=== PATIENT | male | born 1955 | race African-American/Black ===

== ENCOUNTER 2018-03-28 14:17 | Inpatient (IN) | payer OTHER ==
[2018-03-28 16:29] VITALS: BMI 25.8
--- NOTE | 2018-03-28 21:48 | HP ---
CIWA Score - CIWA Score Nausea/Vomitin-No Nausea/No Vomiting Muscle Tremors: None Anxiety: 4-Mod. Anxious/Guarded Agitation: 4-Moderately Restless Paroxysmal Sweats: No Perspiration Orientation: 0-Oriented Tacttile Disturbances: 0-None Auditory Disturbances: 0-None Visual Disturbances: 0-None Headache: 0-None Present CIWA-Ar Total Score: 8 Admission ROS BHS - HPI Chief Complaint: SEEKING DETOX FOR WORSENING WITHDRAWAL SX'S R/T ALCOHOL WITHDRAWAL Allergies/Adverse Reactions: Allergies Allergy/AdvReac Type Severity Reaction Status Date / Time No Known Allergies Allergy Verified 03/28/18 16:36 History of Present Illness: 62 Y.O. MALE WITH HX/O ALCOHOLISM AND COCAINE DEPENDENCE ADMITTED TO DETOX. CLIENT IS SELF REFERRED. HIS IS KNOWN TO THIS PROGRAM. LAST HERE 02/18/2016-2015. DENIES ANY SIGNIFICANT CLEAN TIME. REPORTS LAST DETOX 2 MONTHS AGO AT [facility]. UTOX + BENZO. DENIES USE , FEELS IT IS CUT WITH THE COCAINE. HE IS BEREAVING DUE TO A LOST OF CHILD TO DRUG OVERDOSE LAST WEEK. DENIES HX/O SEIZURES, AND DRUG OVERDOSE PAST/PRESENT SI/HI. HE DOES REPORT HX/O BLACK OUTS, AVH AT TIME WITH WITHDRAWAL, PMHX: DM, HTN, PUD, HX/O +PPD, CVA, NICOTINE DEP PSYCH: DENIES Exam Limitations: No Limitations - Ebola screening Have you traveled outside of the country in the last 21 days: No (N) Have you had contact with anyone from an Ebola affected area: No Have you been sick,other than usual withdrawal symptoms: No Do you have a fever: No - Review of Systems Constitutional: No Symptoms Reported EENT: reports: Dental Problems (EDENTULOUS) Respiratory: reports: No Symptoms reported Cardiac: reports: Other (HX/O HTN) GI: reports: No Symptoms Reported : reports: No Symptoms Reported Musculoskeletal: reports: No Symptoms Reported Integumentary: reports: No Symptoms Reported Neuro: reports: No Symptoms reported Endocrine: reports: Other (HX/O DM) Hematology: reports: No Symptoms Reported Psychiatric: reports: other (RECENT LOSS OF A CHILD) Other Systems: Reviewed and Negative Patient History - Patient Medical History Hx Anemia: No Hx Asthma: No Hx Chronic Obstructive Pulmonary Disease (COPD): No Hx Cancer: No Hx Cardiac Disorders: No Hx Congestive Heart Failure: No Hx Hypertension: Yes (on meds) Hx Hypercholesterolemia: No Hx Pacemaker: No HX Cerebrovascular Accident: Yes (STROKE 2003--[place] Hx Seizures: No Hx Dementia: No Hx Diabetes: Yes (Type II) Hx Gastrointestinal Disorders: Yes (peptic ulcer.) Hx Liver Disease: No Hx Genitourinary Disorders: No Hx Sexually Transmitted Disorders: No Hx Renal Disease (ESRD): No Hx Thyroid Disease: No Hx Human Immunodeficiency Virus (HIV): No Hx Hepatitis C: No Hx Depression: No Hx Suicide Attempt: No Hx Bipolar Disorder: No Hx Schizophrenia: No Other Medical History: BEREAVMENT - Patient Surgical History Past Surgical History: Yes Hx Neurologic Surgery: No Hx Cataract Extraction: No Hx Cardiac Surgery: No Hx Lung Surgery: No Hx Breast Surgery: No Hx Breast Biopsy: No Hx Abdominal Surgery: No Hx Appendectomy: No Hx Cholecystectomy: No Hx Genitourinary Surgery: No Hx Section: No Hx Orthopedic Surgery: Yes (s/p surgery for fx right knee and right leg in 1998) Hx Hysterectomy: No Anesthesia Reaction: No - PPD History Previous Implant?: Yes Documented Results: Positive w/o proof Implanted On Prior [facility] Admission?: No PPD to be Administered?: No - Smoking Cessation Smoking history: Current every day smoker Have you smoked in the past 12 months: Yes Aproximately how many cigarettes per day: 20 Cigars Per Day: 0 Hx Chewing Tobacco Use: No Initiated information on smoking cessation: Yes 'Breaking Loose' booklet given: 03/28/18 - Substance & Tx. History Hx Alcohol Use: Yes Hx Substance Use: Yes Substance Use Type: Alcohol, Cocaine Hx Substance Use Treatment: Yes ([facility]) - Substances Abused Alcohol Route: Oral Frequency: Daily Amount used: 1 and 1/2 pint vodka Age of first use: 16 Date of Last Use: 03/27/18 Crack Route: Smoking Frequency: Daily Amount used: 4-5 bags Age of first use: 30 Date of Last Use: 03/27/18 Family Disease History - Family Disease History Family Disease History: Heart Disease: Mother (mother alcoholic ,HTN), Other: Mother Admission Physical Exam BHS - Vital Signs Vital Signs: Vital Signs - 24 hr 03/28/18 16:28 Temperature 96.4 F L Pulse Rate 83 Respiratory 20 Rate Blood Pressure 152/97 - Physical General Appearance: Yes: Appropriately Dressed, Mild Distress, Anxious, Other ( APPEAR [place] BUT DENIES) HEENTM: Yes: EOMI, Normocephalic, Normal Voice, DINESH, Pharynx Normal, Other ( EDENTULOUS/ DR MUCUS MEMBRANES) Respiratory: Yes: Chest Non-Tender, Lungs Clear, Normal Breath Sounds, No Respiratory Distress, No Accessory Muscle Use Neck: Yes: No masses,lesions,Nodules, Supple, Trachea in good position Breast: Yes: Breast Exam Deferred Cardiology: Yes: Regular Rhythm, Regular Rate, S1, S2 Abdominal: Yes: Non Tender, Soft, Protuberent Genitourinary: Yes: Other (DENIES C/O) Back: Yes: Normal Inspection Musculoskeletal: Yes: full range of Motion, Gait Steady Extremities: Yes: Normal Capillary Refill, Normal Range of Motion, Non-Tender Neurological: Yes: Fully Oriented, Alert, Motor Strength 5/5, Depressed Affect ( BEREAVING) Integumentary: Yes: Dry, Warm, Pitting Edema (TRACE TO BLE) Lymphatic: Yes: Within Normal Limits - Diagnostic (1) History of positive PPD Current Visit: Yes Status: Chronic (2) PUD (peptic ulcer disease) Current Visit: Yes Status: Chronic (3) Dry mucous membranes Current Visit: Yes Status: Acute (4) Bereavement due to life event Current Visit: Yes Status: Acute Comment: RECENT LOSS OF A CHILD A WEEK AGO (5) Alcohol dependence with uncomplicated withdrawal Current Visit: Yes Status: Acute (6) Nicotine dependence Current Visit: Yes Status: Chronic Qualifiers: Nicotine product type: cigarettes Substance use status: uncomplicated Qualified Code(s): F17.210 - Nicotine dependence, cigarettes, uncomplicated (7) Old cerebrovascular accident (CVA) without late effect Current Visit: Yes Status: Chronic (8) DM Diabetes mellitus type 2 Current Visit: Yes Status: Chronic (9) Essential hypertension Current Visit: Yes Status: Chronic Cleared for Admission S - Detox or Rehab [facility] Level of Care: Medically Managed Detox Regimen/Protocol: Librium Claeared for Rehab Admission: No S Breath Alcohol Content Breath Alcohol Content: 0 Urine Drug Screen - Results Drug Screen Negative: No Urine Drug Screen Results: ROSALIO-Cocaine, BZO-Benzodiazepines
[2018-03-28] MEDS ORDERED: MAG HYDROX/AL HYDROX/SIMETH 30 ML UNIT-DOSE CUP PO PRN (21:53)
[2018-03-28] MEDS ORDERED: MAGNESIUM HYDROX 2400MG/30ML ORAL SUSPENSION 30 ML CUP PO PRN (21:53)
[2018-03-28] MEDS ORDERED: MAGNESIUM CITRATE 300 ML BOTTLE PO PRN (21:53)
[2018-03-28] MEDS ORDERED: ACETAMINOPHEN 325 MG TABLET (FP) PO PRN (21:53)
[2018-03-28] MEDS ORDERED: P-EPHED 60MG/TRIPROLIDI 2.5MG TABLET PO PRN (21:53)
[2018-03-28] MEDS ORDERED: IBUPROFEN 400 MG TABLET (FP) PO PRN (21:53)
[2018-03-28] MEDS ORDERED: guaiFENesin/D-METHORPHAN HB 10 ML UNIT-DOSE CUPS PO PRN (21:53)
[2018-03-28] MEDS ORDERED: MENTHOL/PHENOL 1 EACH UD MM PRN (21:53)
[2018-03-28] MEDS ORDERED: LOPERAMIDE HCL 2 MG CAPSULE PO PRN (21:53)
[2018-03-28] MEDS ORDERED: chlordiazePOXIDE HCL 25 MG CAPSULE PO PRN (21:53)
[2018-03-28] MEDS ORDERED: hydrOXYzine PAMOATE 50 MG CAPSULE (FP) PO PRN (21:53)
[2018-03-28] MEDS ORDERED: NICOTINE POLACRILEX 2 MG GUM BC PRN (21:53)
[2018-03-28] MEDS ORDERED: MELATONIN 5 MG TABLETS PO PRN (22:00)
[2018-03-28] MEDS ORDERED: cloNIDine HCL 0.1 MG TABLET PO ONE (22:07)
[2018-03-28] MEDS: THIAMINE HCL 100 MG TABLET (FP) PO SCH (22:47)
[2018-03-28] MEDS: chlordiazePOXIDE HCL 25 MG CAPSULE PO SCH (22:48)
[2018-03-28 23:32] LABS: URINE APPEARANCE TURBID; URINE BILIRUBIN NEGATIVE (<2.0 mg/dL); URINE COLOR YELLOW; URINE GLUCOSE (UA) 3+ (NEGATIVE); URINE KETONE NEGATIVE (NEGATIVE); URINE LEUK ESTERASE NEGATIVE (NEGATIVE); URINE NITRITE NEGATIVE (NEGATIVE); URINE PROTEIN NEGATIVE (NEGATIVE); URINE UROBILINOGEN 4.0 E.U/dl mg/dL (0.2-1.0)
[2018-03-29] MEDS: chlordiazePOXIDE HCL 25 MG CAPSULE PO SCH ×4 (06:41→22:10)
[2018-03-29] MEDS: metFORMIN HCL 500 MG TABLET (FP) PO SCH (07:43)
[2018-03-29 09:52] LABS: HEMATOCRIT 43.6 % (35.4-49); HEMOGLOBIN 14.7 GM/dL (11.7-16.9); MCH 31.2 pg (25.7-33.7); MCHC 33.8 g/dl (32.0-35.9); MEAN CELL VOLUME 92.1 fl (80-96); MEAN PLT VOLUME 7.8 fl (7.5-11.1); PLATELET COUNT 305 K/MM3 (134-434); RBC 4.73 M/mm3 (4.00-5.60); RDW 14.8 % (11.9-15.9); WHITE BLOOD COUNT 4.9 K/mm3 (4.0-10.0)
[2018-03-29] MEDS: NICOTINE 21 MG/24 HOURS TOPICAL PATCH TD SCH (10:15)
[2018-03-29] MEDS: amLODIPine BESYLATE 5 MG TABLET (FP) PO SCH (10:15)
[2018-03-29] MEDS: LISINOPRIL 5 MG TABLET (FP) PO SCH (10:15)
[2018-03-29] MEDS: PRENATAL VITAMINS W/ FOLIC ACID TABLET (FP) PO SCH (10:15)
[2018-03-29 10:33] LABS: ALBUMIN 3.4 g/dl (3.4-5.0); ALK PHOS 124 U/L (45-117); ANION GAP 10 MMOL/L (8-16); BILIRUBIN,TOTAL 0.5 mg/dL (0.2-1.0); BLOOD UREA NITROGEN 18 mg/dL (7-18); CALCIUM 8.6 mg/dL (8.5-10.1); CHLORIDE 107 mmol/L (98-107); CO2 24 mmol/L (21-32); CREATININE 0.8 mg/dL (0.7-1.3); GLUCOSE,RANDOM 174 mg/dL (74-106); POTASSIUM 3.7 mmol/L (3.5-5.1); SGOT/AST 36 U/L (15-37); SGPT/ALT 49 U/L (12-78); SODIUM 141 mmol/L (136-145); TOT PROT 8.2 g/dl (6.4-8.2)
--- NOTE | 2018-03-29 15:12 | PN ---
S CIWA - CIWA Score Nausea/Vomitin-Mild Nausea/No Vomiting Muscle Tremors: 3 Anxiety: 3 Agitation: 2 Paroxysmal Sweats: 1-Minimal Palms Moist Orientation: 1-Uncertain about Date Tacttile Disturbances: 1-Very Mild Itch/Numbness Auditory Disturbances: 0-None Visual Disturbances: 0-None Headache: 1-Very Mild CIWA-Ar Total Score: 13 BHS Progress Note (SOAP) Subjective: sweat tremor gi distress trouble sleep at night Objective: 03/29/18 15:10 Vital Signs Temperature 97.3 F L 03/29/18 13:43 Pulse Rate 85 03/29/18 13:43 Respiratory Rate 16 03/29/18 13:43 Blood Pressure 150/91 03/29/18 13:43 O2 Sat by Pulse Oximetry (%) Laboratory Last Values WBC 4.9 K/mm3 (4.0-10.0) 03/29/18 07:40 RBC 4.73 M/mm3 (4.00-5.60) 03/29/18 07:40 Hgb 14.7 GM/dL (11.7-16.9) 03/29/18 07:40 Hct 43.6 % (35.4-49) 03/29/18 07:40 MCV 92.1 fl (80-96) 03/29/18 07:40 MCH 31.2 pg (25.7-33.7) 03/29/18 07:40 MCHC 33.8 g/dl (32.0-35.9) 03/29/18 07:40 RDW 14.8 % (11.9-15.9) D 03/29/18 07:40 Plt Count 305 K/MM3 (134-434) D 03/29/18 07:40 MPV 7.8 fl (7.5-11.1) 03/29/18 07:40 Sodium 141 mmol/L (136-145) 03/29/18 07:40 Potassium 3.7 mmol/L (3.5-5.1) 03/29/18 07:40 Chloride 107 mmol/L (98-107) 03/29/18 07:40 Carbon Dioxide 24 mmol/L (21-32) 03/29/18 07:40 Anion Gap 10 MMOL/L (8-16) 03/29/18 07:40 BUN 18 mg/dL (7-18) 03/29/18 07:40 Creatinine 0.8 mg/dL (0.7-1.3) 03/29/18 07:40 Creat Clearance w eGFR > 60 (>60) 03/29/18 07:40 POC Glucometer 213 UNITS (80-120) 03/29/18 07:28 Random Glucose 174 mg/dL (74-106) H D 03/29/18 07:40 Calcium 8.6 mg/dL (8.5-10.1) 03/29/18 07:40 Total Bilirubin 0.5 mg/dL (0.2-1.0) 03/29/18 07:40 AST 36 U/L (15-37) 03/29/18 07:40 ALT 49 U/L (12-78) 03/29/18 07:40 Alkaline Phosphatase 124 U/L (45-117) H 03/29/18 07:40 Total Protein 8.2 g/dl (6.4-8.2) 03/29/18 07:40 Albumin 3.4 g/dl (3.4-5.0) 03/29/18 07:40 Urine Color Yellow 03/28/18 22:14 Urine Appearance Turbid 03/28/18 22:14 Urine pH 6.0 (5.0-8.0) 03/28/18 22:14 Ur Specific [place] 1.026 (1.001-1.035) 03/28/18 22:14 Urine Protein Negative (NEGATIVE) 03/28/18 22:14 Urine Glucose (UA) 3+ (NEGATIVE) H 03/28/18 22:14 Urine Ketones Negative (NEGATIVE) 03/28/18 22:14 Urine Blood Negative (NEGATIVE) 03/28/18 22:14 Urine Nitrite Negative (NEGATIVE) 03/28/18 22:14 Urine Bilirubin Negative (<2.0 mg/dL) 03/28/18 22:14 Urine Urobilinogen 4.0 e.u/dl mg/dL (0.2-1.0) 03/28/18 22:14 Ur Leukocyte Esterase Negative (NEGATIVE) 03/28/18 22:14 RPR Titer Nonreactive (NONREACTIVE) 03/29/18 07:40 lab noted Assessment: 03/29/18 15:11 alcohol withdrawal sx Plan: continue detox
--- NOTE | 2018-03-29 16:07 | CONSULT ---
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 Substance Abuse History: Discussed in this session.Mr Sands admits to a heavy history of alcohol abuse - 1 to 2 pints of vodka daily - since age 16 and a 30 year history of crack dependence.Smokes about one pack of cigarettes a day.More details in current [facility] report as follows : Smoking history: Current every day smoker. Have you smoked in the past 12 months: Yes. Aproximately how many cigarettes per day: 20. Cigars Per Day: 0. Hx Chewing Tobacco Use: No. Initiated information on smoking cessation: Yes. 'Breaking Loose' booklet given : 03/28/18. - Substance & Tx. History. Hx Alcohol Use: Yes. Hx Substance Use : Yes. Substance Use Type: Alcohol, Cocaine. Hx Substance Use Treatment: Yes ( [facility]). - Substances Abused. Alcohol. Route: Oral. Frequency: Daily. Amount used: 1 and 1/2 pint vodka. Age of first use: 16. Date of Last Use: . Crack. Route: Smoking. Frequency: Daily. Amount used: 4-5 bags. Age of first use: 30. Date of Last Use: 03/27/18 Medical History: Multiple medical co-morbidities : peptic ulcer disease, hypertension,past history of CVA in 2003,diabetes mellitus,positive PPD status and a history of orthosurgery for fracture of right leg + right knee (1998). Psychiatric History: Patient denies history of psychiatric hospitalizations or suicide attempts.No prior history of contact with mental health care providers in OPD settings. Physical/Sexual Abuse/Trauma History: Patient denies history of abuse.Noted report of recent of child in [facility] admission note.Mr Sands declines to discuss the issue. Additional Comment: Urine Drug Screen Results: ROSALIO-Cocaine, BZO- Benzodiazepines.Noted. Mental Status Exam - Mental Status Exam Alert and Oriented to: Time, Place, Person Cognitive Function: Grossly Intact Patient Appearance: Well Groomed (obese male,appearing stated age,edentulous) Mood: Withdrawn, Hopeful Affect: Appropriate, Normal Range Patient Behavior: Fatigued, Cooperative Speech Pattern: Delayed, Slurred Voice Loudness: Normal Thought Process: Goal Oriented Thought Disorder: Not Present Hallucinations: Denies Suicidal Ideation: Denies Homicidal Ideation: Denies Insight/Judgement: Poor Sleep: Well Appetite: Good Gait/Station: Other (not observed out of bed) Psychiatric Findings - Problem List ([place] 1, 2,3) (1) Alcohol dependence with uncomplicated withdrawal Current Visit: Yes Status: Acute (2) Cocaine dependence Current Visit: Yes Status: Active (3) Nicotine dependence Current Visit: Yes Status: Acute Qualifiers: Nicotine product type: cigarettes Substance use status: uncomplicated Qualified Code(s): F17.210 - Nicotine dependence, cigarettes, uncomplicated - Initial Treatment Plan Initial Treatment Plan: Psychoeducation.Support.Group therapy.Sleep hygiene recommended.Detoxification in progress.Observation.
[2018-03-29] MEDS: THIAMINE HCL 100 MG TABLET (FP) PO SCH (22:10)
[2018-03-30] MEDS: chlordiazePOXIDE HCL 25 MG CAPSULE PO SCH ×3 (06:22→17:46)
[2018-03-30] MEDS: metFORMIN HCL 500 MG TABLET (FP) PO SCH (06:25)
[2018-03-30] MEDS: PRENATAL VITAMINS W/ FOLIC ACID TABLET (FP) PO SCH (10:31)
[2018-03-30] MEDS: NICOTINE 21 MG/24 HOURS TOPICAL PATCH TD SCH (10:32)
[2018-03-30] MEDS: LISINOPRIL 5 MG TABLET (FP) PO SCH (10:32)
[2018-03-30] MEDS: amLODIPine BESYLATE 5 MG TABLET (FP) PO SCH (10:32)
--- NOTE | 2018-03-30 14:14 | PN ---
[facility] CIWA - CIWA Score Nausea/Vomitin-No Nausea/No Vomiting Muscle Tremors: 4-Moderate,w/Arms Extend Anxiety: 3 Agitation: 4-Moderately Restless Paroxysmal Sweats: 1-Minimal Palms Moist Orientation: 0-Oriented Tacttile Disturbances: 0-None Auditory Disturbances: 0-None Visual Disturbances: 0-None Headache: 0-None Present CIWA-Ar Total Score: 12 BHS Progress Note (SOAP) Subjective: mild gi distress tremor sweat restlessness Objective: 03/30/18 14:13 Vital Signs Temperature 97.5 F L 03/30/18 09:29 Pulse Rate 77 03/30/18 09:29 Respiratory Rate 18 03/30/18 09:29 Blood Pressure 139/86 03/30/18 09:29 O2 Sat by Pulse Oximetry (%) Laboratory Last Values WBC 4.9 K/mm3 (4.0-10.0) 03/29/18 07:40 RBC 4.73 M/mm3 (4.00-5.60) 03/29/18 07:40 Hgb 14.7 GM/dL (11.7-16.9) 03/29/18 07:40 Hct 43.6 % (35.4-49) 03/29/18 07:40 MCV 92.1 fl (80-96) 03/29/18 07:40 MCH 31.2 pg (25.7-33.7) 03/29/18 07:40 MCHC 33.8 g/dl (32.0-35.9) 03/29/18 07:40 RDW 14.8 % (11.9-15.9) D 03/29/18 07:40 Plt Count 305 K/MM3 (134-434) D 03/29/18 07:40 MPV 7.8 fl (7.5-11.1) 03/29/18 07:40 Sodium 141 mmol/L (136-145) 03/29/18 07:40 Potassium 3.7 mmol/L (3.5-5.1) 03/29/18 07:40 Chloride 107 mmol/L (98-107) 03/29/18 07:40 Carbon Dioxide 24 mmol/L (21-32) 03/29/18 07:40 Anion Gap 10 MMOL/L (8-16) 03/29/18 07:40 BUN 18 mg/dL (7-18) 03/29/18 07:40 Creatinine 0.8 mg/dL (0.7-1.3) 03/29/18 07:40 Creat Clearance w eGFR > 60 (>60) 03/29/18 07:40 POC Glucometer 186 UNITS (80-120) 03/30/18 06:23 Random Glucose 174 mg/dL (74-106) H D 03/29/18 07:40 Calcium 8.6 mg/dL (8.5-10.1) 03/29/18 07:40 Total Bilirubin 0.5 mg/dL (0.2-1.0) 03/29/18 07:40 AST 36 U/L (15-37) 03/29/18 07:40 ALT 49 U/L (12-78) 03/29/18 07:40 Alkaline Phosphatase 124 U/L (45-117) H 03/29/18 07:40 Total Protein 8.2 g/dl (6.4-8.2) 03/29/18 07:40 Albumin 3.4 g/dl (3.4-5.0) 03/29/18 07:40 Urine Color Yellow 03/28/18 22:14 Urine Appearance Turbid 03/28/18 22:14 Urine pH 6.0 (5.0-8.0) 03/28/18 22:14 Ur Specific [place] 1.026 (1.001-1.035) 03/28/18 22:14 Urine Protein Negative (NEGATIVE) 03/28/18 22:14 Urine Glucose (UA) 3+ (NEGATIVE) H 03/28/18 22:14 Urine Ketones Negative (NEGATIVE) 03/28/18 22:14 Urine Blood Negative (NEGATIVE) 03/28/18 22:14 Urine Nitrite Negative (NEGATIVE) 03/28/18 22:14 Urine Bilirubin Negative (<2.0 mg/dL) 03/28/18 22:14 Urine Urobilinogen 4.0 e.u/dl mg/dL (0.2-1.0) 03/28/18 22:14 Ur Leukocyte Esterase Negative (NEGATIVE) 03/28/18 22:14 RPR Titer Nonreactive (NONREACTIVE) 03/29/18 07:40 lab noted Assessment: 03/30/18 14:14 withdrawal sx Plan: continue detox
[2018-03-30] MEDS: THIAMINE HCL 100 MG TABLET (FP) PO SCH (22:11)
[2018-03-30] MEDS: chlordiazePOXIDE 5 MG CAPSULE PO SCH (22:11)
[2018-03-31] MEDS: chlordiazePOXIDE 5 MG CAPSULE PO SCH ×3 (05:05→20:48)
[2018-03-31] MEDS: metFORMIN HCL 500 MG TABLET (FP) PO SCH (07:20)
[2018-03-31] MEDS: amLODIPine BESYLATE 5 MG TABLET (FP) PO SCH (10:19)
[2018-03-31] MEDS: PRENATAL VITAMINS W/ FOLIC ACID TABLET (FP) PO SCH (10:19)
[2018-03-31] MEDS: NICOTINE 21 MG/24 HOURS TOPICAL PATCH TD SCH (10:19)
[2018-03-31] MEDS: LISINOPRIL 5 MG TABLET (FP) PO SCH (10:19)
--- NOTE | 2018-03-31 11:01 | PN ---
BHS Progress Note (SOAP) Subjective: social with peers in day room no tremor less sweat sleep better at night Objective: 03/31/18 11:01 Vital Signs Temperature 96.8 F L 03/31/18 09:24 Pulse Rate 89 03/31/18 09:24 Respiratory Rate 18 03/31/18 09:24 Blood Pressure 137/81 03/31/18 09:24 O2 Sat by Pulse Oximetry (%) Laboratory Last Values WBC 4.9 K/mm3 (4.0-10.0) 03/29/18 07:40 RBC 4.73 M/mm3 (4.00-5.60) 03/29/18 07:40 Hgb 14.7 GM/dL (11.7-16.9) 03/29/18 07:40 Hct 43.6 % (35.4-49) 03/29/18 07:40 MCV 92.1 fl (80-96) 03/29/18 07:40 MCH 31.2 pg (25.7-33.7) 03/29/18 07:40 MCHC 33.8 g/dl (32.0-35.9) 03/29/18 07:40 RDW 14.8 % (11.9-15.9) D 03/29/18 07:40 Plt Count 305 K/MM3 (134-434) D 03/29/18 07:40 MPV 7.8 fl (7.5-11.1) 03/29/18 07:40 Sodium 141 mmol/L (136-145) 03/29/18 07:40 Potassium 3.7 mmol/L (3.5-5.1) 03/29/18 07:40 Chloride 107 mmol/L (98-107) 03/29/18 07:40 Carbon Dioxide 24 mmol/L (21-32) 03/29/18 07:40 Anion Gap 10 MMOL/L (8-16) 03/29/18 07:40 BUN 18 mg/dL (7-18) 03/29/18 07:40 Creatinine 0.8 mg/dL (0.7-1.3) 03/29/18 07:40 Creat Clearance w eGFR > 60 (>60) 03/29/18 07:40 POC Glucometer 271 UNITS (80-120) 03/31/18 05:05 Random Glucose 174 mg/dL (74-106) H D 03/29/18 07:40 Calcium 8.6 mg/dL (8.5-10.1) 03/29/18 07:40 Total Bilirubin 0.5 mg/dL (0.2-1.0) 03/29/18 07:40 AST 36 U/L (15-37) 03/29/18 07:40 ALT 49 U/L (12-78) 03/29/18 07:40 Alkaline Phosphatase 124 U/L (45-117) H 03/29/18 07:40 Total Protein 8.2 g/dl (6.4-8.2) 03/29/18 07:40 Albumin 3.4 g/dl (3.4-5.0) 03/29/18 07:40 Urine Color Yellow 03/28/18 22:14 Urine Appearance Turbid 03/28/18 22:14 Urine pH 6.0 (5.0-8.0) 03/28/18 22:14 Ur Specific [place] 1.026 (1.001-1.035) 03/28/18 22:14 Urine Protein Negative (NEGATIVE) 03/28/18 22:14 Urine Glucose (UA) 3+ (NEGATIVE) H 03/28/18 22:14 Urine Ketones Negative (NEGATIVE) 03/28/18 22:14 Urine Blood Negative (NEGATIVE) 03/28/18 22:14 Urine Nitrite Negative (NEGATIVE) 03/28/18 22:14 Urine Bilirubin Negative (<2.0 mg/dL) 03/28/18 22:14 Urine Urobilinogen 4.0 e.u/dl mg/dL (0.2-1.0) 03/28/18 22:14 Ur Leukocyte Esterase Negative (NEGATIVE) 03/28/18 22:14 RPR Titer Nonreactive (NONREACTIVE) 03/29/18 07:40 lab noted Assessment: 03/31/18 11:01 mild with drawal sx Plan: medically supervised detox
--- NOTE | 2018-03-31 14:21 | EKG ---
Test Reason : Blood Pressure : / mmHG Vent. Rate : 066 BPM Atrial Rate : 066 BPM P-R Int : 154 ms QRS Dur : 074 ms QT Int : 400 ms P-R-T Axes : 046 029 048 degrees QTc Int : 419 ms NORMAL SINUS RHYTHM NORMAL ECG NO PREVIOUS ECGS AVAILABLE Confirmed by MONIQUE LLOYD MD ([id number]) on 03/31/2018 2:21:15 PM Referred By: Confirmed By:MONIQUE LLOYD MD
[2018-03-31] MEDS: chlordiazePOXIDE HCL 10 MG CAPSULE PO SCH (22:05)
[2018-03-31] MEDS: THIAMINE HCL 100 MG TABLET (FP) PO SCH (22:05)
[2018-04-01] MEDS: chlordiazePOXIDE HCL 10 MG CAPSULE PO SCH (05:45)
[2018-04-01] MEDS: metFORMIN HCL 500 MG TABLET (FP) PO SCH (07:56)
[2018-04-01] MEDS: LISINOPRIL 5 MG TABLET (FP) PO SCH (09:14)
[2018-04-01] MEDS: amLODIPine BESYLATE 5 MG TABLET (FP) PO SCH (09:14)
[2018-04-01] MEDS: PRENATAL VITAMINS W/ FOLIC ACID TABLET (FP) PO SCH (09:14)
[2018-04-01 09:34] VITALS: BP 152/89; PULSE 97; TEMP 97.3
--- NOTE | 2018-04-01 10:02 | DS ---
[facility] Detox Discharge Summary Admission Date: 03/28/18 Discharge Date: 04/01/18 - History Present History: Alcohol Dependence Additional Comments: 63 YEARS OLD MALE ADMITTED ON 03/28/18 FOR ALCOHOL WITHDRAWAL SX COMPLETED ALCOHOL DETOX REGIMEN TODAY T[facility]ERATED [facility] DENIES ALCOHOL WITHDRAWAL SX ALERT ORIENTED X 3 NO ACUTE DISTRESS AFTER [facility] REPORTED HAS ALL PRESCRIPTION MEDICATIONS AT HOME THE HE RECENTLY FILLED BEFORE ALCOHOL DETOX ADMISSION PATIENT HAS POSITIVE PPD SINCE 2016 KNOWN FROM MEDICAL RECORD PATIENT DENIES SYMPTOMS OF TB NO SIGNS OF TB PATIENT STATED THAT HE HAD CHEST X RAY WITHIN ONE YEAR AND NOT NECESSARY TO HAVE ANOTHER ONE - Physical Exam Results Vital Signs: Vital Signs Temperature 97.3 F L 04/01/18 09:33 Pulse Rate 97 H 04/01/18 09:33 Respiratory Rate 18 04/01/18 09:33 Blood Pressure 152/89 04/01/18 09:33 O2 Sat by Pulse Oximetry (%) Pertinent Admission Physical Exam Findings: ALCOHOL WITHDRAWAL SX Vital Signs Temperature 97.3 F L 04/01/18 09:33 Pulse Rate 97 H 04/01/18 09:33 Respiratory Rate 18 04/01/18 09:33 Blood Pressure 152/89 04/01/18 09:33 O2 Sat by Pulse Oximetry (%) Laboratory Last Values WBC 4.9 K/mm3 (4.0-10.0) 03/29/18 07:40 RBC 4.73 M/mm3 (4.00-5.60) 03/29/18 07:40 Hgb 14.7 GM/dL (11.7-16.9) 03/29/18 07:40 Hct 43.6 % (35.4-49) 03/29/18 07:40 MCV 92.1 fl (80-96) 03/29/18 07:40 MCH 31.2 pg (25.7-33.7) 03/29/18 07:40 MCHC 33.8 g/dl (32.0-35.9) 03/29/18 07:40 RDW 14.8 % (11.9-15.9) D 03/29/18 07:40 Plt Count 305 K/MM3 (134-434) D 03/29/18 07:40 MPV 7.8 fl (7.5-11.1) 03/29/18 07:40 Sodium 141 mmol/L (136-145) 03/29/18 07:40 Potassium 3.7 mmol/L (3.5-5.1) 03/29/18 07:40 Chloride 107 mmol/L (98-107) 03/29/18 07:40 Carbon Dioxide 24 mmol/L (21-32) 03/29/18 07:40 Anion Gap 10 MMOL/L (8-16) 03/29/18 07:40 BUN 18 mg/dL (7-18) 03/29/18 07:40 Creatinine 0.8 mg/dL (0.7-1.3) 03/29/18 07:40 Creat Clearance w eGFR > 60 (>60) 03/29/18 07:40 POC Glucometer 256 UNITS (80-120) 04/01/18 05:46 Random Glucose 174 mg/dL (74-106) H D 03/29/18 07:40 Calcium 8.6 mg/dL (8.5-10.1) 03/29/18 07:40 Total Bilirubin 0.5 mg/dL (0.2-1.0) 03/29/18 07:40 AST 36 U/L (15-37) 03/29/18 07:40 ALT 49 U/L (12-78) 03/29/18 07:40 Alkaline Phosphatase 124 U/L (45-117) H 03/29/18 07:40 Total Protein 8.2 g/dl (6.4-8.2) 03/29/18 07:40 Albumin 3.4 g/dl (3.4-5.0) 03/29/18 07:40 Urine Color Yellow 03/28/18 22:14 Urine Appearance Turbid 03/28/18 22:14 Urine pH 6.0 (5.0-8.0) 03/28/18 22:14 Ur Specific [place] 1.026 (1.001-1.035) 03/28/18 22:14 Urine Protein Negative (NEGATIVE) 03/28/18 22:14 Urine Glucose (UA) 3+ (NEGATIVE) H 03/28/18 22:14 Urine Ketones Negative (NEGATIVE) 03/28/18 22:14 Urine Blood Negative (NEGATIVE) 03/28/18 22:14 Urine Nitrite Negative (NEGATIVE) 03/28/18 22:14 Urine Bilirubin Negative (<2.0 mg/dL) 03/28/18 22:14 Urine Urobilinogen 4.0 e.u/dl mg/dL (0.2-1.0) 03/28/18 22:14 Ur Leukocyte Esterase Negative (NEGATIVE) 03/28/18 22:14 RPR Titer Nonreactive (NONREACTIVE) 03/29/18 07:40 LAB NOTED - Treatment Hospital Course: Detox Protocol Followed, Detoxed Safely, Responded well, Discharged Condition Good, Rehab Referral Accepted Patient has Accepted a Rehab Referral to: [facility] - Medication Discharge Medications: Ambulatory Orders Amlodipine Besylate [Norvasc -] 5 mg PO DAILY #30 tablet 03/31/18 Lisinopril [Prinivil] 5 mg PO DAILY #30 tablet 03/31/18 Metformin HCl [Glucophage] 500 mg PO DAILY #30 tablet 03/31/18 - Diagnosis (1) Alcohol dependence with uncomplicated withdrawal Current Visit: Yes Status: Acute (2) Nicotine dependence Current Visit: Yes Status: Acute Qualifiers: Nicotine product type: cigarettes Substance use status: in withdrawal Qualified Code(s): F17.213 - Nicotine dependence, cigarettes, with withdrawal (3) Positive PPD Current Visit: No Status: Resolved (4) DM Diabetes mellitus type 2 Current Visit: Yes Status: Chronic (5) Essential hypertension Current Visit: Yes Status: Chronic - AMA Did Patient Leave Against Medical Advice: No
== END 2018-04-01 09:30 | disposition home or self-care (01) | DRG 774 ==
LOC: YASAS 14:17 → Y6N 18:08
PROC: HZ2ZZZZ Detoxification Services for Substance Abuse Treatment (ICD-10-PCS; principal; 2018-03-28)
DX: F10.230 Alcohol dependence with withdrawal, uncomplicated (principal); F14.20 Cocaine dependence, uncomplicated; F17.213 Nicotine dependence, cigarettes, with withdrawal; I10 Essential (primary) hypertension; E11.9 Type 2 diabetes mellitus without complications; Z79.84 Long term (current) use of oral hypoglycemic drugs; K27.9 Peptic ulcer, site unspecified, unspecified as acute or chronic, without hemorrhage or perforation; R76.11 Nonspecific reaction to tuberculin skin test without active tuberculosis; Z86.73 Personal history of transient ischemic attack (TIA), and cerebral infarction without residual deficits; Z87.81 Personal history of (healed) traumatic fracture; Z63.4 Disappearance and death of family member; Z59.0 Homelessness
CPT/HCPCS: 36415; 80053; 81003; 82962; 85027; 86593; 93005; 93010; J0735

== ENCOUNTER 2018-05-14 08:41 | Inpatient (IN) | payer OTHER ==
[2018-05-14 09:07] VITALS: BMI 30.5
--- NOTE | 2018-05-14 09:44 | HP ---
CIWA Score - CIWA Score Nausea/Vomitin Muscle Tremors: 2 Anxiety: 2 Agitation: 2 Paroxysmal Sweats: 1-Minimal Palms Moist Orientation: 0-Oriented Tacttile Disturbances: 1-Very Mild Itch/Numbness Auditory Disturbances: 1-Very Mild Visual Disturbances: 1-Very Mild Sensitivity Headache: 2-Mild CIWA-Ar Total Score: 14 Admission ROS BHS - HPI Chief Complaint: i need help to stop drinking alcohol and cocaine Allergies/Adverse Reactions: Allergies Allergy/AdvReac Type Severity Reaction Status Date / Time No Known Allergies Allergy Verified 03/28/18 16:36 History of Present Illness: this 63 years old male with alcohol and cocaine dependence seeking detox, withdrawal symptom,last 03/28/18 to 04/01/18 syncope alcohol related old cva in 2003 history of htn,type 2 dm,non compliance nicotine dependence multiple admissions to detox,keep relapsing no significant period of sobriety Exam Limitations: No Limitations - Ebola screening Have you traveled outside of the country in the last 21 days: No (N) Have you had contact with anyone from an Ebola affected area: No Have you been sick,other than usual withdrawal symptoms: No Do you have a fever: No - Review of Systems Constitutional: Loss of Appetite, Malaise, Night Sweats, Changes in sleep, Weakness EENT: reports: Nose Congestion Respiratory: reports: No Symptoms reported Cardiac: reports: No Symptoms Reported GI: reports: Nausea, Vomiting, Abdominal cramping : reports: No Symptoms Reported Musculoskeletal: reports: Back Pain, Muscle Pain Neuro: reports: Headache, Tremors Endocrine: reports: No Symptoms Reported Hematology: reports: No Symptoms Reported Psychiatric: reports: No Sypmtoms Reported, Judgement Intact, Mood/Affect Appropiate, Orientated x3 Patient History - Patient Medical History Hx Anemia: No Hx Asthma: No Hx Chronic Obstructive Pulmonary Disease (COPD): No Hx Cancer: No Hx Cardiac Disorders: No Hx Congestive Heart Failure: No Hx Hypertension: Yes (on meds non compliance) Hx Hypercholesterolemia: No Hx Pacemaker: No HX Cerebrovascular Accident: Yes (STROKE 2003--[place], [place]) Hx Seizures: No Hx Dementia: No Hx Diabetes: Yes (Type II) Hx Gastrointestinal Disorders: Yes (peptic ulcer.) Hx Liver Disease: No Hx Genitourinary Disorders: No Hx Sexually Transmitted Disorders: No Hx Renal Disease (ESRD): No Hx Thyroid Disease: No Hx Human Immunodeficiency Virus (HIV): No (last 2011 negative) Hx Hepatitis C: No Hx Depression: No Hx Suicide Attempt: No Hx Bipolar Disorder: No Hx Schizophrenia: No Other Medical History: no suicidal,no homicidal - Patient Surgical History Past Surgical History: Yes Hx Neurologic Surgery: No Hx Cataract Extraction: No Hx Cardiac Surgery: No Hx Lung Surgery: No Hx Breast Surgery: No Hx Breast Biopsy: No Hx Abdominal Surgery: No Hx Appendectomy: No Hx Cholecystectomy: No Hx Genitourinary Surgery: No Hx Section: No Hx Orthopedic Surgery: Yes (s/p surgery for fx right knee and right leg in 1998) Hx Hysterectomy: No Anesthesia Reaction: No - PPD History Previous Implant?: Yes Documented Results: Positive w/o proof Implanted On Prior [facility] Admission?: No PPD to be Administered?: No - Smoking Cessation Smoking history: Current every day smoker Have you smoked in the past 12 months: Yes Aproximately how many cigarettes per day: 20 Cigars Per Day: 0 Hx Chewing Tobacco Use: No Initiated information on smoking cessation: Yes 'Breaking Loose' booklet given: 05/14/18 - Substance & Tx. History Hx Alcohol Use: Yes Hx Substance Use: Yes Substance Use Type: Alcohol, Cocaine Hx [facility] - Substances Abused Alcohol Route: Oral Frequency: Daily Amount used: 2 to 3 pints of vodka/0ne of 12 ozs of beer Age of first use: 16 Date of Last Use: 05/13/18 Cocaine Route: Smoking Frequency: 1-2 times per week Amount used: 20$ Age of first use: 16 Date of Last Use: 05/13/18 Family Disease History - Family Disease History Family Disease History: Heart Disease: Mother (mother alcoholic ,HTN), Other: Mother Admission Physical Exam BHS - Vital Signs Vital Signs: Vital Signs - 24 hr 05/14/18 09:04 Temperature 97.5 F L Pulse Rate 84 Respiratory 19 Rate Blood Pressure 146/92 - Physical General Appearance: Yes: Moderate Distress, Tremorous, Irritable, Sweating, Anxious HEENTM: Yes: Normal ENT Inspection, DINESH, Pharynx Normal Respiratory: Yes: Lungs Clear, Normal Breath Sounds, No Respiratory Distress Neck: Yes: Within Normal Limits, Supple, Trachea in good position Breast: Yes: Within Normal Limits Cardiology: Yes: Within Normal Limits, Regular Rhythm, Regular Rate, S1, S2 Abdominal: Yes: Within Normal Limits, Normal Bowel Sounds, Non Tender, Flat, Soft Genitourinary: Yes: Within Normal Limits Back: Yes: Within Normal Limits Musculoskeletal: Yes: Back pain, Muscle Pain Extremities: Yes: Normal Range of Motion, Tremors 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, Fully Oriented, Alert, Motor Strength 5/5 Integumentary: Yes: Dry Lymphatic: Yes: Within Normal Limits - Diagnostic (1) Alcohol dependence with uncomplicated withdrawal Current Visit: No Status: Acute (2) Cocaine dependence Current Visit: No Status: Active (3) syncope Current Visit: No Status: Active (4) Nicotine dependence Current Visit: No Status: Acute Qualifiers: Nicotine product type: cigarettes Substance use status: in withdrawal Qualified Code(s): F17.213 - Nicotine dependence, cigarettes, with withdrawal (5) History of positive PPD Current Visit: No Status: Chronic (6) Old cerebrovascular accident (CVA) without late effect Current Visit: No Status: Chronic (7) PUD (peptic ulcer disease) Current Visit: No Status: Chronic Cleared for Admission [facility] - Detox or Rehab [facility] Level of Care: Medically Managed Detox Regimen/Protocol: Librium [facility] Breath Alcohol Content Breath Alcohol Content: 0 Urine Drug Screen - Results Drug Screen Negative: No Urine Drug Screen Results: ROSALIO-Cocaine, BZO-Benzodiazepines
[2018-05-14] MEDS ORDERED: guaiFENesin/D-METHORPHAN HB 10 ML UNIT-DOSE CUPS PO PRN (10:00)
[2018-05-14] MEDS ORDERED: ACETAMINOPHEN 325 MG TABLET (FP) PO PRN (10:00)
[2018-05-14] MEDS ORDERED: hydrOXYzine PAMOATE 50 MG CAPSULE (FP) PO PRN (10:00)
[2018-05-14] MEDS ORDERED: IBUPROFEN 400 MG TABLET (FP) PO PRN (10:00)
[2018-05-14] MEDS ORDERED: P-EPHED 60MG/TRIPROLIDI 2.5MG TABLET PO PRN (10:00)
[2018-05-14] MEDS ORDERED: MAGNESIUM HYDROX 2400MG/30ML ORAL SUSPENSION 30 ML CUP PO PRN (10:00)
[2018-05-14] MEDS ORDERED: MENTHOL/PHENOL 1 EACH UD MM PRN (10:00)
[2018-05-14] MEDS ORDERED: chlordiazePOXIDE HCL 25 MG CAPSULE PO PRN (10:00)
[2018-05-14] MEDS ORDERED: MAG HYDROX/AL HYDROX/SIMETH 30 ML UNIT-DOSE CUP PO PRN (10:00)
[2018-05-14] MEDS ORDERED: LOPERAMIDE HCL 2 MG CAPSULE PO PRN (10:00)
[2018-05-14] MEDS ORDERED: metFORMIN HCL 500 MG TABLET (FP) PO SCH (10:30)
[2018-05-14] MEDS: amLODIPine BESYLATE 5 MG TABLET (FP) PO SCH (12:20)
[2018-05-14] MEDS: LISINOPRIL 5 MG TABLET (FP) PO SCH (12:20)
[2018-05-14] MEDS: PRENATAL VITAMINS W/ FOLIC ACID TABLET (FP) PO SCH (12:22)
[2018-05-14] MEDS: chlordiazePOXIDE HCL 25 MG CAPSULE PO SCH ×2 (17:59→22:28)
[2018-05-14] MEDS ORDERED: INSULIN (NOVOLOG) ASPART 100 UNITS/ML 10ML VIAL SQ ONE (21:18)
--- NOTE | 2018-05-14 21:20 | PN ---
S Progress Note Note: Vital Signs Temperature 98.5 F 05/14/18 18:00 Pulse Rate 98 H 05/14/18 18:00 Respiratory Rate 18 05/14/18 18:00 Blood Pressure 156/86 05/14/18 18:00 O2 Sat by Pulse Oximetry (%) Laboratory Last Values POC Glucometer 308 UNITS (80-120) 05/14/18 20:38 Patient currently on metformin 500 QD one time dose novolog 4 units ordered metformin adjusted to BID starting 05/15/18 increase PO fluids continue to monitor
[2018-05-14 21:53] LABS: URINE APPEARANCE CLEAR; URINE BILIRUBIN NEGATIVE (<2.0 mg/dL); URINE COLOR YELLOW; URINE GLUCOSE (UA) 3+ (NEGATIVE); URINE KETONE NEGATIVE (NEGATIVE); URINE LEUK ESTERASE NEGATIVE (NEGATIVE); URINE NITRITE NEGATIVE (NEGATIVE); URINE PROTEIN NEGATIVE (NEGATIVE)
[2018-05-14] MEDS ORDERED: MELATONIN 5 MG TABLETS PO PRN (22:00)
[2018-05-14] MEDS: THIAMINE HCL 100 MG TABLET (FP) PO SCH (22:28)
[2018-05-15] MEDS: chlordiazePOXIDE HCL 25 MG CAPSULE PO SCH ×4 (05:07→22:18)
[2018-05-15] MEDS: MAGNESIUM CITRATE 300 ML BOTTLE PO PRN (05:08)
[2018-05-15] MEDS: metFORMIN HCL 500 MG TABLET (FP) PO SCH ×2 (08:00→17:23)
--- NOTE | 2018-05-15 09:24 | EKG ---
Test Reason : Blood Pressure : / mmHG Vent. Rate : 077 BPM Atrial Rate : 077 BPM P-R Int : 154 ms QRS Dur : 074 ms QT Int : 382 ms P-R-T Axes : 044 028 045 degrees QTc Int : 432 ms NORMAL SINUS RHYTHM WITH SINUS ARRHYTHMIA NORMAL ECG WHEN COMPARED WITH ECG OF 28-MAR-2018 22:34, NO SIGNIFICANT CHANGE WAS FOUND Confirmed by RONNIE BUSTAMANTE MD ([id number]) on 05/15/2018 9:23:30 AM Referred By: Confirmed By:RONNIE BUSTAMANTE MD
[2018-05-15] MEDS: LISINOPRIL 5 MG TABLET (FP) PO SCH (10:14)
[2018-05-15] MEDS: amLODIPine BESYLATE 5 MG TABLET (FP) PO SCH (10:14)
[2018-05-15] MEDS: PRENATAL VITAMINS W/ FOLIC ACID TABLET (FP) PO SCH (10:14)
[2018-05-15 10:39] LABS: HEMATOCRIT 41.5 % (35.4-49); HEMOGLOBIN 13.6 GM/dL (11.7-16.9); MCH 31.2 pg (25.7-33.7); MCHC 32.8 g/dl (32.0-35.9); MEAN CELL VOLUME 95.2 fl (80-96); MEAN PLT VOLUME 8.3 fl (7.5-11.1); PLATELET COUNT 321 K/MM3 (134-434); RBC 4.36 M/mm3 (4.00-5.60); RDW 14.7 % (11.9-15.9)
[2018-05-15 11:01] LABS: ALBUMIN 3.2 g/dl (3.4-5.0); ALK PHOS 118 U/L (45-117); ANION GAP 9 MMOL/L (8-16); BILIRUBIN,TOTAL 0.5 mg/dL (0.2-1); BLOOD UREA NITROGEN 18 mg/dL (7-18); CALCIUM 9.1 mg/dL (8.5-10.1); CHLORIDE 105 mmol/L (98-107); CO2 23 mmol/L (21-32); CREATININE 1.1 mg/dL (0.55-1.3); POTASSIUM 4.1 mmol/L (3.5-5.1); SGOT/AST 32 U/L (15-37); SGPT/ALT 52 U/L (13-61); SODIUM 137 mmol/L (136-145); TOT PROT 7.4 g/dl (6.4-8.2)
[2018-05-15 11:08] LABS: GLUCOSE,RANDOM 318 mg/dL (74-106)
--- NOTE | 2018-05-15 11:12 | PN ---
S CIWA - CIWA Score Nausea/Vomitin-No Nausea/No Vomiting Muscle Tremors: 2 Anxiety: 2 Agitation: 2 Paroxysmal Sweats: No Perspiration Orientation: 0-Oriented Tacttile Disturbances: 2-Mild Itch/Numbness/Burn Auditory Disturbances: 0-None Visual Disturbances: 0-None Headache: 0-None Present CIWA-Ar Total Score: 8 BHS Progress Note (SOAP) Subjective: PATIENT C/O NUMBNESS/BURNING TO EXTREMITIES, ANXIETY, AND SHAKES Objective: 05/15/18 11:11 Vital Signs Temperature 97.0 F L 05/15/18 09:30 Pulse Rate 88 05/15/18 09:30 Respiratory Rate 18 05/15/18 09:30 Blood Pressure 140/87 05/15/18 09:30 O2 Sat by Pulse Oximetry (%) Laboratory Tests 05/14/18 05/14/18 05/14/18 10:19 12:15 16:26 WBC RBC Hgb Hct MCV MCH MCHC RDW Plt Count MPV Sodium Potassium Chloride Carbon Dioxide Anion Gap BUN Creatinine Creat Clearance w eGFR POC Glucometer 295 220 Random Glucose Calcium Total Bilirubin AST ALT Alkaline Phosphatase Total Protein Albumin Urine Color Yellow Urine Appearance Clear Urine pH 6.0 Ur Specific Joshua 1.039 H Urine Protein Negative Urine Glucose (UA) 3+ H Urine Ketones Negative Urine Blood Negative Urine Nitrite Negative Urine Bilirubin Negative Urine Urobilinogen 2.0 Ur Leukocyte Esterase Negative 05/14/18 05/15/18 05/15/18 20:38 05:07 06:00 WBC 5.0 RBC 4.36 Hgb 13.6 Hct 41.5 MCV 95.2 MCH 31.2 MCHC 32.8 RDW 14.7 Plt Count 321 MPV 8.3 Sodium Potassium Chloride Carbon Dioxide Anion Gap BUN Creatinine Creat Clearance w eGFR POC Glucometer 308 233 Random Glucose Calcium Total Bilirubin AST ALT Alkaline Phosphatase Total Protein Albumin Urine Color Urine Appearance Urine pH Ur Specific Joshua Urine Protein Urine Glucose (UA) Urine Ketones Urine Blood Urine Nitrite Urine Bilirubin Urine Urobilinogen Ur Leukocyte Esterase 05/15/18 06:00 WBC RBC Hgb Hct MCV MCH MCHC RDW Plt Count MPV Sodium 137 Potassium 4.1 Chloride 105 Carbon Dioxide 23 Anion Gap 9 BUN 18 Creatinine 1.1 Creat Clearance w eGFR > 60 POC Glucometer Random Glucose 318 H* Calcium 9.1 Total Bilirubin 0.5 AST 32 ALT 52 Alkaline Phosphatase 118 H Total Protein 7.4 Albumin 3.2 L Urine Color Urine Appearance Urine pH Ur Specific Joshua Urine Protein Urine Glucose (UA) Urine Ketones Urine Blood Urine Nitrite Urine Bilirubin Urine Urobilinogen Ur Leukocyte Esterase SKIN WARM AND DRY ALERT AND ORIENTED X 3 CAR S1S2 RESP CTA BL EXT FULL ROM, MILD TREMORS AMB AD LUIS Assessment: 05/15/18 11:12 WITHDRAWAL SYNDROME Plan: CONTINUE DETOX ORDERED ENCOURAGE ORAL FLUIDS CONTINUE TO MONITOR
[2018-05-15] MEDS: THIAMINE HCL 100 MG TABLET (FP) PO SCH (22:18)
[2018-05-16] MEDS: chlordiazePOXIDE HCL 25 MG CAPSULE PO SCH (05:55)
[2018-05-16] MEDS: MAGNESIUM CITRATE 300 ML BOTTLE PO PRN (05:57)
[2018-05-16] MEDS: metFORMIN HCL 500 MG TABLET (FP) PO SCH (06:02)
[2018-05-16 09:09] VITALS: BP 159/95; PULSE 88; TEMP 96
[2018-05-16] MEDS: amLODIPine BESYLATE 5 MG TABLET (FP) PO SCH (09:11)
[2018-05-16] MEDS: LISINOPRIL 5 MG TABLET (FP) PO SCH (09:11)
[2018-05-16] MEDS: PRENATAL VITAMINS W/ FOLIC ACID TABLET (FP) PO SCH (09:11)
--- NOTE | 2018-05-16 10:19 | DS ---
[facility] Detox Discharge Summary Admission Date: 05/14/18 Discharge Date: 05/16/18 - History Present History: Alcohol Dependence - Physical Exam Results Vital Signs: Vital Signs Temperature 96 F L 05/16/18 09:08 Pulse Rate 88 05/16/18 09:08 Respiratory Rate 20 05/16/18 09:08 Blood Pressure 159/95 05/16/18 09:08 O2 Sat by Pulse Oximetry (%) Pertinent Admission Physical Exam Findings: PATIENT REQUESTED TO SIGN OUT AMA THIS MORNING. PATIENT STATED " I WAS HERE FOR ONE DAY AND I JUST GOT TO GET OUT OF HERE". PATIENT DENIES SI/HI. ENCOURAGED TO COMPLETE DETOX BUT PATIENT REFUSED. PATIENT ALERT AND ORIENTED X3, IN NAD. AMB AD LUIS. SKIN WARM AND DRY. PATIENT EDUCATED ON RISK FACTORS REGARDING SIGNING OUT AMA AND RISK OF RELAPSE AND . PATIENT ENCOURAGED TO FOLLOW UP WITH GROUP MEETINGS TO PREVENT RELAPSE AND TO SEEK MEDICAL ATTENTION IF WITHDRAWAL SYMPTOMS OCCUR. - Medication Discharge Medications: Ambulatory Orders Amlodipine Besylate [Norvasc -] 5 mg PO DAILY #30 tablet 03/31/18 Lisinopril [Prinivil] 5 mg PO DAILY #30 tablet 03/31/18 Metformin HCl [Glucophage] 500 mg PO DAILY #30 tablet 03/31/18 - Diagnosis (1) Alcohol dependence with uncomplicated withdrawal Status: Acute - AMA Did Patient Leave Against Medical Advice: Yes
[2018-05-16] MEDS ORDERED: chlordiazePOXIDE 5 MG CAPSULE PO SCH (17:00)
[2018-05-17] MEDS ORDERED: chlordiazePOXIDE HCL 10 MG CAPSULE PO SCH (17:00)
== END 2018-05-16 09:17 | disposition left against medical advice (07) | DRG 770 ==
LOC: YASAS 08:41 → Y3N 10:15
PROC: HZ2ZZZZ Detoxification Services for Substance Abuse Treatment (ICD-10-PCS; principal; 2018-05-14)
DX: F10.230 Alcohol dependence with withdrawal, uncomplicated (principal); F14.20 Cocaine dependence, uncomplicated; F17.213 Nicotine dependence, cigarettes, with withdrawal; E11.9 Type 2 diabetes mellitus without complications; I10 Essential (primary) hypertension; K27.9 Peptic ulcer, site unspecified, unspecified as acute or chronic, without hemorrhage or perforation; R76.11 Nonspecific reaction to tuberculin skin test without active tuberculosis; Z91.14 Patient's other noncompliance with medication regimen; Z86.73 Personal history of transient ischemic attack (TIA), and cerebral infarction without residual deficits; Z79.84 Long term (current) use of oral hypoglycemic drugs; Z59.0 Homelessness
CPT/HCPCS: 36415; 71046-TC-FY; 80053; 81003; 82962; 85027; 86593; 93005; 93010

== ENCOUNTER 2018-06-12 09:11 | Inpatient (IN) | payer OTHER ==
[2018-06-12 09:50] VITALS: BMI 31.0
--- NOTE | 2018-06-12 11:54 | HP ---
CIWA Score - Admission Criteria [facility] Guidelines: Admission for Medically Managed Detox: Requires at least one of the followin. CIWA greater than 12 2. Seizures within the past 24 hours 3. Delirium tremens within the past 24 hours 4. Hallucinations within the past 24 hours 5. Acute intervention needed for co occurring medical disorder 6. Acute intervention needed for co occurring psychiatric disorder 7. Severe withdrawal that cannot be handled at a lower level of care (continued vomiting, continued diarrhea, abnormal vital signs) requiring intravenous medication and/or fluids 8. Admission ROS [facility] Chief Complaint: PATIENT PRESENTS FOR REHAB SERVICES FOR ALCOHOL DEPENDENCE. Allergies/Adverse Reactions: Allergies Allergy/AdvReac Type Severity Reaction Status Date / Time No Known Allergies Allergy Verified 06/12/18 10:44 History of Present Illness: PATIENT PRESENTS FOR REHAB SERVICES FOR ETOH DEPENDENCE. PATIENT WAS RECENTLY DETOX AT [facility] AFTER BEING ADMITTED FOR ELEVATED BLOOD SUGAR. PATIENT D/C 3 DAYS AGO. PATIENT BEGAN DRINKING ETOH AT AGE 16. DRINKS UP TO 4 PINTS OF VODKA DAILY. LAST DRINK WAS OVER ONE WEEK AGO ALTHOUGH [place] 0.001. PATIENT HAS HAD MULTIPLE ADMISSIONS TO DETOX THIS YEAR AT [facility]. PATIENT DENIES HX OF SEIZURES AND BLACKOUTS. +H/O FALLS. PATIENT HAS HX OF DRINKING FIRST THING IN THE MORNING DURING BINGES. ALSO SMOKES CRACK, EVERY 2 DAYS, 30 DOLLARS DAILY. LAST TIME HE SMOKED WAS 05/29/18. PMH INCLUDES HTN AND DM. PATIENT DENIES SI/HI AND SUICIDE ATTEMPTS. REFUSED HIV TESTING AT THIS TIME. Exam Limitations: No Limitations - Ebola screening Have you traveled outside of the country in the last 21 days: No Have you had contact with anyone from an Ebola affected area: No Have you been sick,other than usual withdrawal symptoms: No Do you have a fever: No - Review of Systems Constitutional: Changes in sleep EENT: reports: No Symptoms Reported Respiratory: reports: No Symptoms reported Cardiac: reports: No Symptoms Reported GI: reports: Poor Fluid Intake : reports: No Symptoms Reported Musculoskeletal: reports: No Symptoms Reported Integumentary: reports: No Symptoms Reported Neuro: reports: No Symptoms reported Hematology: reports: No Symptoms Reported Psychiatric: reports: Orientated x3, Anxious Patient History - Patient Medical History Hx Anemia: No Hx Asthma: No Hx Chronic Obstructive Pulmonary Disease (COPD): No Hx Cancer: No Hx Cardiac Disorders: No Hx Congestive Heart Failure: No Hx Hypertension: Yes Hx Hypercholesterolemia: No Hx Pacemaker: No HX Cerebrovascular Accident: Yes (STROKE 2003--[place], [place]) Hx Seizures: No Hx Dementia: No Hx Diabetes: Yes Hx Gastrointestinal Disorders: Yes Hx Liver Disease: No Hx Genitourinary Disorders: No Hx Sexually Transmitted Disorders: No Hx Renal Disease (ESRD): No Hx Thyroid Disease: No Hx Human Immunodeficiency Virus (HIV): No (last 2011 negative, REFUSED TESTING TODA 06/12) Hx Hepatitis C: No Hx Depression: No Hx Suicide Attempt: No Hx Bipolar Disorder: No Hx Schizophrenia: No - Patient Surgical History Past Surgical History: Yes Hx Neurologic Surgery: No Hx Cataract Extraction: No Hx Cardiac Surgery: No Hx Lung Surgery: No Hx Breast Surgery: No Hx Breast Biopsy: No Hx Abdominal Surgery: No Hx Appendectomy: No Hx Cholecystectomy: No Hx Genitourinary Surgery: No Hx Orthopedic Surgery: Yes (s/p surgery for fx right knee and right leg in 1998) Anesthesia Reaction: No - PPD History Previous Implant?: No Documented Results: Positive w/o proof Implanted On Prior R Admission?: No PPD to be Administered?: No - Reproductive History Patient : No - Smoking Cessation Smoking history: Current every day smoker Have you smoked in the past 12 months: Yes Aproximately how many cigarettes per day: 20 Cigars Per Day: 0 Hx Chewing Tobacco Use: No Initiated information on smoking cessation: Yes 'Breaking Loose' booklet given: 06/12/18 - Substance & Tx. History Hx Alcohol Use: Yes Hx Substance Use: Yes Substance Use Type: Alcohol, Cocaine Hx Substance Use Treatment: Yes - Substances Abused Alcohol Route: Oral Frequency: Daily Amount used: 4-5 pints Age of first use: 16 Date of Last Use: 05/15/18 Cocaine Route: Smoking Frequency: Daily Amount used: 3-4 bags Age of first use: 30 Date of Last Use: 05/31/18 Crack Route: Smoking Frequency: Daily Amount used: 3-4 bags Age of first use: 30 Date of Last Use: 05/31/18 Family Disease History - Family Disease History Family Disease History: Heart Disease: Mother (mother alcoholic ,HTN), Other: Mother Admission Physical Exam BHS - Vital Signs Vital Signs: Vital Signs - 24 hr 06/12/18 09:29 Temperature 97.3 F L Pulse Rate 80 Respiratory 16 Rate Blood Pressure 148/92 - Physical General Appearance: Yes: Nourished, Appropriately Dressed, Anxious HEENTM: Yes: EOMI, Hearing grossly Normal, Normal ENT Inspection, Normocephalic , Normal Voice, DINESH, Pharynx Normal Respiratory: Yes: Chest Non-Tender, Lungs Clear, Normal Breath Sounds, No Respiratory Distress, No Accessory Muscle Use Neck: Yes: Within Normal Limits, No masses,lesions,Nodules, Supple Breast: Yes: Breast Exam Deferred Cardiology: Yes: Regular Rhythm, Regular Rate, S1, S2 Abdominal: Yes: Normal Bowel Sounds, Non Tender, Soft Back: Yes: Normal Inspection Musculoskeletal: Yes: full range of Motion, Gait Steady Extremities: Yes: Normal Inspection, Normal Range of Motion, Non-Tender 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, Fully Oriented, Alert, Motor Strength 5/5, Normal Response, Other (ANXIOUS) Integumentary: Yes: Normal Color, Dry, Warm Lymphatic: Yes: Within Normal Limits Cleared for Admission [facility] - Detox or Rehab Claeared for Rehab Admission: Yes [facility] Breath Alcohol Content Breath Alcohol Content: 0.001 Urine Drug Screen - Results Drug Screen Negative: No Urine Drug Screen Results: BZO-Benzodiazepines Inpatient Rehab Admission - Initial Determination Are CD services needed?: Yes Free of communicable disease: Yes Not in need of hospitalization: Yes - Rehab Admission Criteria Previous failed treatment: Yes Poor recovery environment: Yes Comorbidities: Yes Lacks judgement: Yes Patient is meeting Inpatient Rehab admission criteria:: Yes
[2018-06-12] MEDS ORDERED: MENTHOL/PHENOL 1 EACH UD MM PRN (12:03)
[2018-06-12] MEDS ORDERED: IBUPROFEN 400 MG TABLET (FP) PO PRN (12:03)
[2018-06-12] MEDS ORDERED: LOPERAMIDE HCL 2 MG CAPSULE PO PRN (12:03)
[2018-06-12] MEDS ORDERED: hydrOXYzine PAMOATE 50 MG CAPSULE (FP) PO PRN (12:03)
[2018-06-12] MEDS ORDERED: MAGNESIUM CITRATE 300 ML BOTTLE PO PRN (12:03)
[2018-06-12] MEDS ORDERED: MAG HYDROX/AL HYDROX/SIMETH 30 ML UNIT-DOSE CUP PO PRN (12:03)
[2018-06-12] MEDS ORDERED: ACETAMINOPHEN 325 MG TABLET (FP) PO PRN (12:03)
[2018-06-12] MEDS ORDERED: NICOTINE POLACRILEX 2 MG GUM BUC PRN (12:03)
[2018-06-12] MEDS ORDERED: guaiFENesin/D-METHORPHAN HB 10 ML UNIT-DOSE CUPS PO PRN (12:03)
[2018-06-12] MEDS ORDERED: P-EPHED 60MG/TRIPROLIDI 2.5MG TABLET PO PRN (12:03)
[2018-06-12] MEDS ORDERED: MAGNESIUM HYDROX 2400MG/30ML ORAL SUSPENSION 30 ML CUP PO PRN (12:03)
--- NOTE | 2018-06-12 14:24 | HP ---
Psychiatrist Admission - Data Date of interview: 06/12/18 Admission source: Self-referred Identifying data: This is the second [facility] admission for this 63 years old single Black male, father of 3 children, unemployed on food stamp, homeless Medical History: Significant for hypertension, type 2 diabetes mellitus, PPD+ history of gastro-intestinal bleeding, cerebro-vascular accident and orthosurgery for fracture right knee in 1998. Smokes cigarettes 1 ppd Psychiatric History: Denies history of previous psychiatric treatment Physical/Sexual Abuse/Trauma History: Denies history of emotional, physical or sexual abuse as well as DV relationship. No service Additional Comment: Reports historyof 6 previous arrests including 3 felony convictions. Denies being on parole/probation Vital Signs: Vital Signs - 24 hr 06/12/18 09:29 Temperature 97.3 F L Pulse Rate 80 Respiratory 16 Rate Blood Pressure 148/92 Allergies/Adverse Reactions: Allergies Allergy/AdvReac Type Severity Reaction Status Date / Time No Known Allergies Allergy Verified 06/12/18 10:44 Date of last physical exam: 06/12/18 Concur with the findings of this exam: Yes - Substance Abuse/Tx History Hx Alcohol Use: Yes Hx Substance Use: Yes Substance Use Type: Alcohol (Started drinking alcohol at age 16, consumes 4-5 pints of liquor daily. Last drank on 05/15/18), Cocaine (Started smoking crack cocaine at age 30, consumes 3-4 bags daily. Last smoked on 05/31/18) Hx Substance Use Treatment: Yes (Multiple(11)previous inpt detox [facility] Mental Status Exam - Mental Status Exam Alert and Oriented to: Time, Place, Person Cognitive Function: Fair Patient Appearance: Well Groomed Mood: Hopeful, Euthymic Affect: Appropriate Patient Behavior: Cooperative Speech Pattern: Clear Voice Loudness: Normal Thought Process: Intact, Goal Oriented Thought Disorder: Not Present Hallucinations: Denies Suicidal Ideation: Denies Homicidal Ideation: Denies Insight/Judgement: Fair Sleep: Fair Appetite: Fair Muscle strength/Tone: Normal Gait/Station: Normal Psychiatric Findings - Problem List ([place] 1, 2,3) (1) Alcohol dependence Current Visit: Yes Status: Acute (2) Cocaine dependence Current Visit: No Status: Acute (3) Nicotine dependence Current Visit: No Status: Chronic Qualifiers: Nicotine product type: cigarettes Substance use status: in withdrawal Qualified Code(s): F17.213 - Nicotine dependence, cigarettes, with withdrawal (4) DM2 (diabetes mellitus, type 2) Current Visit: No Status: Chronic Qualifiers: Diabetes mellitus long term care social worker insulin use: without long term care social worker use Diabetes mellitus complication status: without complication Qualified Code(s): E11.9 - Type 2 diabetes mellitus without complications (5) Essential hypertension Current Visit: No Status: Chronic (6) History of positive PPD Current Visit: No Status: Chronic (7) Old cerebrovascular accident (CVA) without late effect Current Visit: No Status: Chronic (8) PUD (peptic ulcer disease) Current Visit: No Status: Chronic - Initial Treatment Plan Initial Treatment Plan: Monitor progress
[2018-06-12] MEDS: metFORMIN HCL 500 MG TABLET (FP) PO SCH (14:52)
[2018-06-12 16:10] LABS: HEMATOCRIT 44.4 % (35.4-49); HEMOGLOBIN 15.2 GM/dL (11.7-16.9); MCH 32.3 pg (25.7-33.7); MCHC 34.3 g/dl (32.0-35.9); MEAN CELL VOLUME 94.1 fl (80-96); MEAN PLT VOLUME 9.3 fl (7.5-11.1); PLATELET COUNT 240 K/MM3 (134-434); RBC 4.72 M/mm3 (4.00-5.60); RDW 13.9 % (11.9-15.9); WHITE BLOOD COUNT 6.9 K/mm3 (4.0-10.0)
[2018-06-12 16:18] LABS: ALBUMIN 3.3 g/dl (3.4-5.0); ALK PHOS 74 U/L (45-117); ANION GAP 7 MMOL/L (8-16); BILIRUBIN,TOTAL 0.6 mg/dL (0.2-1); BLOOD UREA NITROGEN 19 mg/dL (7-18); CALCIUM 8.5 mg/dL (8.5-10.1); CHLORIDE 105 mmol/L (98-107); CO2 26 mmol/L (21-32); GLUCOSE,RANDOM 276 mg/dL (74-106); POTASSIUM 4.3 mmol/L (3.5-5.1); SGOT/AST 39 U/L (15-37); SGPT/ALT 48 U/L (13-61); SODIUM 137 mmol/L (136-145)
[2018-06-12 21:28] LABS: URINE APPEARANCE CLEAR; URINE BILIRUBIN NEGATIVE (<2.0 mg/dL); URINE COLOR YELLOW; URINE GLUCOSE (UA) 3+ (NEGATIVE); URINE KETONE NEGATIVE (NEGATIVE); URINE LEUK ESTERASE NEGATIVE (NEGATIVE); URINE NITRITE NEGATIVE (NEGATIVE); URINE PROTEIN NEGATIVE (NEGATIVE); URINE UROBILINOGEN NEGATIVE mg/dL (0.2-1.0)
[2018-06-12] MEDS: THIAMINE HCL 100 MG TABLET (FP) PO SCH (21:50)
[2018-06-12] MEDS ORDERED: MELATONIN 5 MG TABLETS PO PRN (22:00)
[2018-06-13] MEDS: metFORMIN HCL 500 MG TABLET (FP) PO SCH (07:25)
[2018-06-13] MEDS: LISINOPRIL 5 MG TABLET (FP) PO SCH (09:55)
[2018-06-13] MEDS: amLODIPine BESYLATE 5 MG TABLET (FP) PO SCH (09:55)
[2018-06-13] MEDS: PRENATAL VITAMINS W/ FOLIC ACID TABLET (FP) PO SCH (09:55)
[2018-06-13] MEDS: THIAMINE HCL 100 MG TABLET (FP) PO SCH (21:53)
[2018-06-14] MEDS: metFORMIN HCL 500 MG TABLET (FP) PO SCH ×2 (06:11→17:08)
[2018-06-14] MEDS: PRENATAL VITAMINS W/ FOLIC ACID TABLET (FP) PO SCH (09:53)
[2018-06-14] MEDS: LISINOPRIL 5 MG TABLET (FP) PO SCH (09:53)
[2018-06-14] MEDS: amLODIPine BESYLATE 5 MG TABLET (FP) PO SCH (09:53)
[2018-06-14] MEDS: THIAMINE HCL 100 MG TABLET (FP) PO SCH (22:41)
[2018-06-15] MEDS: metFORMIN HCL 500 MG TABLET (FP) PO SCH ×2 (06:05→17:11)
[2018-06-15] MEDS: amLODIPine BESYLATE 5 MG TABLET (FP) PO SCH (09:57)
[2018-06-15] MEDS: PRENATAL VITAMINS W/ FOLIC ACID TABLET (FP) PO SCH (09:57)
[2018-06-15] MEDS: LISINOPRIL 5 MG TABLET (FP) PO SCH (09:57)
[2018-06-15] MEDS: THIAMINE HCL 100 MG TABLET (FP) PO SCH (21:40)
[2018-06-16] MEDS: metFORMIN HCL 500 MG TABLET (FP) PO SCH ×2 (06:54→16:48)
[2018-06-16] MEDS ORDERED: PT OWN MED DRAWER 7, Y5N ONE (09:59)
[2018-06-16] MEDS: PRENATAL VITAMINS W/ FOLIC ACID TABLET (FP) PO SCH (10:16)
[2018-06-16] MEDS: LISINOPRIL 5 MG TABLET (FP) PO SCH (10:16)
[2018-06-16] MEDS: amLODIPine BESYLATE 5 MG TABLET (FP) PO SCH (10:16)
[2018-06-16] MEDS: THIAMINE HCL 100 MG TABLET (FP) PO SCH (21:47)
[2018-06-17] MEDS: metFORMIN HCL 500 MG TABLET (FP) PO SCH ×2 (06:45→17:16)
[2018-06-17] MEDS: amLODIPine BESYLATE 5 MG TABLET (FP) PO SCH (09:56)
[2018-06-17] MEDS: PRENATAL VITAMINS W/ FOLIC ACID TABLET (FP) PO SCH (09:56)
[2018-06-17] MEDS: LISINOPRIL 5 MG TABLET (FP) PO SCH (09:57)
[2018-06-17] MEDS: INSULIN SLIDING SCALE (NOVOLOG) 1 VIAL SQ SCH (17:17)
[2018-06-17] MEDS: THIAMINE HCL 100 MG TABLET (FP) PO SCH (21:48)
[2018-06-18] MEDS: INSULIN SLIDING SCALE (NOVOLOG) 1 VIAL SQ SCH ×2 (06:55→16:50)
[2018-06-18] MEDS: metFORMIN HCL 500 MG TABLET (FP) PO SCH ×2 (06:55→16:49)
[2018-06-18] MEDS: PRENATAL VITAMINS W/ FOLIC ACID TABLET (FP) PO SCH (09:53)
[2018-06-18] MEDS: amLODIPine BESYLATE 5 MG TABLET (FP) PO SCH (09:53)
[2018-06-18] MEDS: LISINOPRIL 5 MG TABLET (FP) PO SCH (09:53)
[2018-06-18] MEDS ORDERED: INSULIN (NOVOLOG) ASPART 100 UNITS/ML 10ML VIAL ONE (16:32)
[2018-06-18] MEDS: THIAMINE HCL 100 MG TABLET (FP) PO SCH (21:23)
[2018-06-19] MEDS: metFORMIN HCL 500 MG TABLET (FP) PO SCH ×2 (06:30→17:00)
[2018-06-19] MEDS: INSULIN SLIDING SCALE (NOVOLOG) 1 VIAL SQ SCH ×2 (06:31→17:00)
[2018-06-19] MEDS: amLODIPine BESYLATE 5 MG TABLET (FP) PO SCH (10:02)
[2018-06-19] MEDS: LISINOPRIL 5 MG TABLET (FP) PO SCH (10:02)
[2018-06-19] MEDS: PRENATAL VITAMINS W/ FOLIC ACID TABLET (FP) PO SCH (10:02)
[2018-06-19] MEDS ORDERED: INSULIN (NOVOLOG) ASPART 100 UNITS/ML 10ML VIAL ONE (16:34)
[2018-06-19] MEDS: THIAMINE HCL 100 MG TABLET (FP) PO SCH (21:48)
[2018-06-20] MEDS: metFORMIN HCL 500 MG TABLET (FP) PO SCH ×2 (06:00→16:51)
[2018-06-20] MEDS: INSULIN SLIDING SCALE (NOVOLOG) 1 VIAL SQ SCH ×2 (06:02→16:52)
[2018-06-20] MEDS: PRENATAL VITAMINS W/ FOLIC ACID TABLET (FP) PO SCH (10:19)
[2018-06-20] MEDS: LISINOPRIL 5 MG TABLET (FP) PO SCH (10:19)
[2018-06-20] MEDS: amLODIPine BESYLATE 5 MG TABLET (FP) PO SCH (10:19)
[2018-06-20] MEDS: THIAMINE HCL 100 MG TABLET (FP) PO SCH (21:32)
[2018-06-21] MEDS: INSULIN SLIDING SCALE (NOVOLOG) 1 VIAL SQ SCH ×2 (07:30→16:40)
[2018-06-21] MEDS: metFORMIN HCL 500 MG TABLET (FP) PO SCH ×2 (07:30→16:40)
[2018-06-21] MEDS: LISINOPRIL 5 MG TABLET (FP) PO SCH (10:01)
[2018-06-21] MEDS: PRENATAL VITAMINS W/ FOLIC ACID TABLET (FP) PO SCH (10:01)
[2018-06-21] MEDS: amLODIPine BESYLATE 5 MG TABLET (FP) PO SCH (10:01)
[2018-06-21] MEDS ORDERED: INSULIN (NOVOLOG) ASPART 100 UNITS/ML 10ML VIAL ONE (16:17)
[2018-06-21] MEDS: THIAMINE HCL 100 MG TABLET (FP) PO SCH (21:33)
[2018-06-22] MEDS: metFORMIN HCL 500 MG TABLET (FP) PO SCH ×2 (06:46→16:35)
[2018-06-22] MEDS: INSULIN SLIDING SCALE (NOVOLOG) 1 VIAL SQ SCH ×2 (06:47→16:36)
[2018-06-22] MEDS: LISINOPRIL 5 MG TABLET (FP) PO SCH (09:51)
[2018-06-22] MEDS: PRENATAL VITAMINS W/ FOLIC ACID TABLET (FP) PO SCH (09:51)
[2018-06-22] MEDS: amLODIPine BESYLATE 5 MG TABLET (FP) PO SCH (09:51)
[2018-06-22] MEDS ORDERED: INSULIN (NOVOLOG) ASPART 100 UNITS/ML 10ML VIAL ONE (16:30)
[2018-06-22] MEDS: THIAMINE HCL 100 MG TABLET (FP) PO SCH (21:14)
[2018-06-23] MEDS: metFORMIN HCL 500 MG TABLET (FP) PO SCH ×2 (06:13→16:33)
[2018-06-23] MEDS: INSULIN SLIDING SCALE (NOVOLOG) 1 VIAL SQ SCH ×2 (07:33→16:34)
[2018-06-23] MEDS: LISINOPRIL 5 MG TABLET (FP) PO SCH (09:58)
[2018-06-23] MEDS: PRENATAL VITAMINS W/ FOLIC ACID TABLET (FP) PO SCH (09:58)
[2018-06-23] MEDS: amLODIPine BESYLATE 5 MG TABLET (FP) PO SCH (09:58)
[2018-06-23] MEDS ORDERED: INSULIN (NOVOLOG) ASPART 100 UNITS/ML 10ML VIAL ONE (16:33)
[2018-06-23] MEDS: THIAMINE HCL 100 MG TABLET (FP) PO SCH (21:09)
[2018-06-23] MEDS ORDERED: PT OWN MED DRAWER 7, Y5N ONE (23:43)
[2018-06-24] MEDS: INSULIN SLIDING SCALE (NOVOLOG) 1 VIAL SQ SCH ×2 (07:20→16:53)
[2018-06-24] MEDS: metFORMIN HCL 500 MG TABLET (FP) PO SCH ×2 (07:20→16:52)
[2018-06-24] MEDS: amLODIPine BESYLATE 5 MG TABLET (FP) PO SCH (09:59)
[2018-06-24] MEDS: PRENATAL VITAMINS W/ FOLIC ACID TABLET (FP) PO SCH (09:59)
[2018-06-24] MEDS: LISINOPRIL 5 MG TABLET (FP) PO SCH (09:59)
[2018-06-24] MEDS ORDERED: INSULIN (NOVOLOG) ASPART 100 UNITS/ML 10ML VIAL ONE (16:32)
[2018-06-24] MEDS: THIAMINE HCL 100 MG TABLET (FP) PO SCH (21:35)
[2018-06-25] MEDS: INSULIN SLIDING SCALE (NOVOLOG) 1 VIAL SQ SCH ×2 (06:59→16:46)
[2018-06-25] MEDS: metFORMIN HCL 500 MG TABLET (FP) PO SCH ×2 (06:59→16:46)
[2018-06-25] MEDS: LISINOPRIL 5 MG TABLET (FP) PO SCH (10:09)
[2018-06-25] MEDS: PRENATAL VITAMINS W/ FOLIC ACID TABLET (FP) PO SCH (10:09)
[2018-06-25] MEDS: amLODIPine BESYLATE 5 MG TABLET (FP) PO SCH (10:09)
--- NOTE | 2018-06-25 12:35 | PN ---
Psychiatric Progress Note Vital Signs: Vital Signs Period Temp Pulse Resp BP Sys/Silva Pulse Ox Last 24 Hr 97.4 F 72-74 18-18 137-141/81-93 Date of Session: 06/25/18 Chief Complaint:: Discharge visit HPI: Case of a 63 y/o AA male admitted to [address] for alcohol and cocaine dependence. Patient has completed his rehabilitation program. Scheduled for discharge on 06/26/18. ROS: Unremarkable. Patient is ambulatory. Steady gait. Alert and fully oriented. No somatic complaints. Current Medications: Active Medications Generic Name Dose Route Start Last Admin Trade Name Freq PRN Reason Stop Dose Admin Acetaminophen 650 mg 06/12/18 12:03 Tylenol - PO Q4H PRN FEVER Al Hydroxide/Mg Hydroxide 30 ml 06/12/18 12:03 Mylanta Oral Suspension - PO Q6H PRN DYSPEPSIA Amlodipine Besylate 5 mg 06/13/18 10:00 06/25/18 10:09 Norvasc - PO 5 mg DAILY YEISON Administration Eucalyptus/Menthol/Phenol/Sorbitol 1 each 06/12/18 12:03 Cepastat Lozenge - MM Q4H PRN SORE THROAT Guaifenesin 10 ml 06/12/18 12:03 Robitussin Dm - PO Q6H PRN COUGH Hydroxyzine Pamoate 50 mg 06/12/18 12:03 Vistaril - PO Q4H PRN AGITATION Ibuprofen 400 mg 06/12/18 12:03 Motrin - PO Q6H PRN Pain level 4-6 Insulin Aspart 1 vial 06/17/18 16:30 06/25/18 06:59 Novolog Vial Sliding Scale - SQ Not Given [facility] Protocol Lisinopril 5 mg 06/13/18 10:00 06/25/18 10:09 Prinivil PO 5 mg DAILY YEISON Administration Loperamide HCl 4 mg 06/12/18 12:03 Imodium - PO Q6H PRN DIARRHEA Magnesium Citrate 300 ml 06/12/18 12:03 Citroma - PO Q48H PRN CONSTIPATION Magnesium Hydroxide 30 ml 06/12/18 12:03 Milk Of Magnesia - PO DAILY PRN CONSTIPATION Melatonin 5 mg 06/12/18 22:00 Melatonin PO HS PRN INSOMNIA Metformin HCl 500 mg 06/14/18 16:30 06/25/18 06:59 Glucophage - PO 500 mg BID@0700,1630 YEISON Administration Nicotine Polacrilex 2 mg 06/12/18 12:03 Nicorette Gum - BUC Q2H PRN NICOTINE REPLACEMENT RX Multivit/Folic Acid/Iron 1 tab 06/13/18 10:00 06/25/18 10:09 Vitamins (Sjr) - PO 1 tab DAILY YEISON Administration Pseudoephedrine/Triprolidine 1 combo 06/12/18 12:03 Actifed - PO TID PRN NASAL CONGESTION Thiamine HCl 100 mg 06/12/18 22:00 06/24/18 21:35 Vitamin B1 - PO 100 mg HS YEISON Administration Medication(s) Change(s): None. Patient is NOT on psychotropic medications. Current Side Effect: No Lab tests ordered: No Lab tests reviewed: Yes Provider note:: Chart reviewed. Met with the patient for assessment of mental status. Mr Sands will complete this program on 06/26/18. Has addressed his issues and met his treatment goals. Will continue outpatient substance treament at the [facility]. Appointment set for 06/26 at 12:00 PM. Medical issues were addressed. Patient is hemodynamically stable. No acute medical issues. Mr Sands indicates that he has benefited from this hospitalization in terms of the acquisition of a deeper insight into the consequences of substance abuse, the value of spirituality, the recognition of 12 step fellowship as a serious therapeutic asset and awareness about treatment modalities currently available, in the community, for relapse prevention ( naltrexone, psychotherapy). Patient declares that he will incorporate in his ADLs (activities of daily living) [facility] ( identification and avoidance of triggers that predispose to relapses, adherence to treatment programs, consistent contacts with caregivers, modification of lifestyle). Mental status is stable : euthymic mood, no psychosis, adequate impulse control, good judgment, future-orientedness and intact cognition. Patient is at his baseline. Not a danger to self or others. Ready for discharge. Total face to face time:: 35 Mental Status Exam - Mental Status Exam Alert and Oriented to: Time, Place, Person Cognitive Function: Good Patient Appearance: Well Groomed Mood: Hopeful, Euthymic Affect: Appropriate, Normal Range Patient Behavior: Appropriate, Cooperative Speech Pattern: Clear, Appropriate Voice Loudness: Normal Thought Process: Intact, Goal Oriented Thought Disorder: Not Present Hallucinations: Denies Suicidal Ideation: Denies Homicidal Ideation: Denies Insight/Judgement: Fair Sleep: Well Appetite: Good Muscle strength/Tone: Normal Gait/Station: Normal Psychiatric Treatment Plan - Problem List (1) Alcohol dependence Current Visit: Yes Comment: . (2) Cocaine dependence Current Visit: Yes Comment: . (3) Nicotine dependence Current Visit: Yes Qualifiers: Nicotine product type: cigarettes Substance use status: in withdrawal Qualified Code(s): F17.213 - Nicotine dependence, cigarettes, with withdrawal Comment: .
[2018-06-25] MEDS: THIAMINE HCL 100 MG TABLET (FP) PO SCH (21:44)
[2018-06-26 06:32] VITALS: BP 156/93; PULSE 70; TEMP 98
[2018-06-26] MEDS: INSULIN SLIDING SCALE (NOVOLOG) 1 VIAL SQ SCH (06:58)
[2018-06-26] MEDS: metFORMIN HCL 500 MG TABLET (FP) PO SCH (06:58)
== END 2018-06-26 09:32 | disposition home or self-care (01) | DRG 772 ==
LOC: YASAS 09:11 → Y3W 12:22
PROVIDERS: ADMIT Psychiatry & Neurology Psychiatry; ATTEND Psychiatry & Neurology Psychiatry
PROC: HZ42ZZZ Group Counseling for Substance Abuse Treatment, Cognitive-Behavioral (ICD-10-PCS; principal; 2018-06-12)
DX: F10.20 Alcohol dependence, uncomplicated (principal); F14.20 Cocaine dependence, uncomplicated; F17.213 Nicotine dependence, cigarettes, with withdrawal; I10 Essential (primary) hypertension; E11.9 Type 2 diabetes mellitus without complications; Z79.84 Long term (current) use of oral hypoglycemic drugs; K27.9 Peptic ulcer, site unspecified, unspecified as acute or chronic, without hemorrhage or perforation; Z86.73 Personal history of transient ischemic attack (TIA), and cerebral infarction without residual deficits; R76.11 Nonspecific reaction to tuberculin skin test without active tuberculosis; Z59.0 Homelessness
CPT/HCPCS: 36415; 80053; 81003; 82962; 85027; 86593

== ENCOUNTER 2019-02-09 10:36 | Inpatient (IN) | payer OTHER ==
[2019-02-09 11:10] VITALS: BMI 30.1
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
[2019-02-09] MEDS ORDERED: MENTHOL/PHENOL 1 EACH UD MM PRN (13:26)
[2019-02-09] MEDS ORDERED: ACETAMINOPHEN 325 MG TABLET (FP) PO PRN ×2 (13:26)
[2019-02-09] MEDS ORDERED: MAGNESIUM CITRATE 300 ML BOTTLE PO PRN (13:26)
[2019-02-09] MEDS ORDERED: MAG HYDROX/AL HYDROX/SIMETH 30 ML UNIT-DOSE CUP PO PRN (13:26)
[2019-02-09] MEDS ORDERED: IBUPROFEN 400 MG TABLET (FP) PO PRN (13:26)
[2019-02-09] MEDS ORDERED: METHOCARBAMOL 500 MG TABLET PO PRN (13:26)
[2019-02-09] MEDS ORDERED: chlordiazePOXIDE HCL 25 MG CAPSULE PO PRN (13:26)
[2019-02-09] MEDS ORDERED: hydrOXYzine HCL 25 MG TABLET (FP) PO PRN (13:26)
[2019-02-09] MEDS ORDERED: MAGNESIUM HYDROX 2400MG/30ML ORAL SUSPENSION 30 ML CUP PO PRN (13:26)
[2019-02-09] MEDS ORDERED: BISMUTH SUBSALICYLATE 262 MG/15 ML BTL PO PRN (13:26)
[2019-02-09] MEDS ORDERED: MELATONIN 5 MG TABLETS PO PRN (13:26)
--- NOTE | 2019-02-09 13:44 | PN ---
Teaching Attending Note Name of Resident: Cassidy Comer ATTENDING PHYSICIAN STATEMENT I saw and evaluated the patient. I reviewed the resident's note and discussed the case with the resident. I agree with the resident's findings and plan as documented. SUBJECTIVE: this 63 years old male with alcohol dependence,with multiple admissions in detox ,withdrawal symptom,history of old cva,hypertension,dm, alcohol intoxication OBJECTIVE: Vital Signs Temperature 96.6 F L 02/09/19 11:52 Pulse Rate 79 02/09/19 11:52 Respiratory Rate 20 02/09/19 11:52 Blood Pressure 153/99 02/09/19 11:52 O2 Sat by Pulse Oximetry (%) ASSESSMENT AND PLAN: plan for inpatient detox from alcohol,medical managed detox,librium regimen i personally present,review,history,examination,by Dr.Harmanpree Comer , discussed and concurred with his history,examination and decision making
--- NOTE | 2019-02-09 13:55 | PN ---
FABIEN Progress Note Note: patient has fall protocol 2,witness,no injury noted,no head injury alert,no loc,oriented x 3 no injury noted no complaint heent normal neck no pain heart normal heart sound lung clear ,no wheezing abdomen soft,no distension no pain or tenderness bowel sound active extremities no calf tenderness treatment initiate fall protocol 2 fall precaution
--- NOTE | 2019-02-09 14:01 | PN ---
S Progress Note Note: patient has history of hiv positive documented on 06/14/11
[2019-02-09] MEDS: LISINOPRIL 5 MG TABLET (FP) PO SCH (15:28)
[2019-02-09] MEDS: metFORMIN HCL 500 MG TABLET (FP) PO SCH (15:28)
[2019-02-09] MEDS ORDERED: INSULIN SLIDING SCALE (NOVOLOG) 1 VIAL SQ ONE (18:13)
[2019-02-09] MEDS: chlordiazePOXIDE HCL 25 MG CAPSULE PO SCH ×2 (18:15→22:17)
[2019-02-09] MEDS ORDERED: INSULIN (NOVOLOG) ASPART 100 UNITS/ML 10ML VIAL SQ ONE (18:15)
[2019-02-09] MEDS: THIAMINE HCL 100 MG TABLET (FP) PO SCH (22:18)
[2019-02-09 23:56] LABS: HEMATOCRIT 42.7 % (35.4-49); HEMOGLOBIN 14.8 GM/dL (11.7-16.9); MCHC 34.6 g/dl (32.0-35.9); MEAN CELL VOLUME 95.2 fl (80-96); MEAN PLT VOLUME 8.6 fl (7.5-11.1); PLATELET COUNT 282 K/MM3 (134-434); RBC 4.48 M/mm3 (4.00-5.60); RDW 14.7 % (11.9-15.9); WHITE BLOOD COUNT 5.4 K/mm3 (4.0-10.0)
[2019-02-10 00:09] LABS: ALBUMIN 3.6 g/dl (3.4-5.0); BILIRUBIN,TOTAL 0.8 mg/dL (0.2-1); BLOOD UREA NITROGEN 12.2 mg/dL (7-18); CREATININE 0.9 mg/dL (0.55-1.3); POTASSIUM 4.6 mmol/L (3.5-5.1); TOT PROT 8.3 g/dl (6.4-8.2)
[2019-02-10] MEDS: chlordiazePOXIDE HCL 25 MG CAPSULE PO SCH ×4 (05:36→22:31)
[2019-02-10] MEDS: metFORMIN HCL 500 MG TABLET (FP) PO SCH ×2 (06:46→17:30)
[2019-02-10] MEDS: INSULIN SLIDING SCALE (NOVOLOG) 1 VIAL SQ SCH ×3 (08:20→17:30)
--- NOTE | 2019-02-10 09:51 | PN ---
S CIWA - CIWA Score Nausea/Vomitin Muscle Tremors: 2 Anxiety: 2 Agitation: 2 Paroxysmal Sweats: 1-Minimal Palms Moist Orientation: 0-Oriented Tacttile Disturbances: 1-Very Mild Itch/Numbness Auditory Disturbances: 0-None Visual Disturbances: 0-None Headache: 2-Mild CIWA-Ar Total Score: 12 [facility] Progress Note (SOAP) Subjective: alert,irritable,anxious,interrupted sleep,tremor Objective: 02/10/19 09:49 Vital Signs Temperature 97 F L 02/10/19 09:31 Pulse Rate 78 02/10/19 09:31 Respiratory Rate 18 02/10/19 09:31 Blood Pressure 139/92 02/10/19 09:31 O2 Sat by Pulse Oximetry (%) Laboratory Last Values WBC 5.4 K/mm3 (4.0-10.0) 02/09/19 13:30 RBC 4.48 M/mm3 (4.00-5.60) 02/09/19 13:30 Hgb 14.8 GM/dL (11.7-16.9) 02/09/19 13:30 Hct 42.7 % (35.4-49) 02/09/19 13:30 MCV 95.2 fl (80-96) 02/09/19 13:30 MCH 33.0 pg (25.7-33.7) 02/09/19 13:30 MCHC 34.6 g/dl (32.0-35.9) 02/09/19 13:30 RDW 14.7 % (11.9-15.9) 02/09/19 13:30 Plt Count 282 K/MM3 (134-434) 02/09/19 13:30 MPV 8.6 fl (7.5-11.1) 02/09/19 13:30 Sodium 139 mmol/L (136-145) 02/09/19 13:30 Potassium 4.6 mmol/L (3.5-5.1) 02/09/19 13:30 Chloride 104 mmol/L (98-107) 02/09/19 13:30 Carbon Dioxide 29 mmol/L (21-32) 02/09/19 13:30 Anion Gap 6 MMOL/L (8-16) L 02/09/19 13:30 BUN 12.2 mg/dL (7-18) 02/09/19 13:30 Creatinine 0.9 mg/dL (0.55-1.3) 02/09/19 13:30 Est GFR (CKD-EPI)AfAm 105.72 02/09/19 13:30 Est GFR (CKD-EPI)NonAf 91.22 02/09/19 13:30 POC Glucometer 306 UNITS (80-120) 02/10/19 05:58 Random Glucose 341 mg/dL (74-106) H* 02/09/19 13:30 Calcium 9.0 mg/dL (8.5-10.1) 02/09/19 13:30 Total Bilirubin 0.8 mg/dL (0.2-1) 02/09/19 13:30 AST 21 U/L (15-37) 02/09/19 13:30 ALT 41 U/L (13-61) 02/09/19 13:30 Alkaline Phosphatase 165 U/L (45-117) H 02/09/19 13:30 Total Protein 8.3 g/dl (6.4-8.2) H 02/09/19 13:30 Albumin 3.6 g/dl (3.4-5.0) 02/09/19 13:30 Assessment: 02/10/19 09:50 withdrawal symptom Plan: continue detox librium regimen,bgm monitoring with insulin coverage
[2019-02-10] MEDS: PRENATAL VITAMINS W/ FOLIC ACID TABLET (FP) PO SCH (11:08)
[2019-02-10] MEDS: LISINOPRIL 5 MG TABLET (FP) PO SCH (11:08)
--- NOTE | 2019-02-10 11:59 | PN ---
S Progress Note Note: bgm 319,to increase metformin to 500 mgs po bid,bgm monitoring with insulin coverage
[2019-02-10] MEDS: THIAMINE HCL 100 MG TABLET (FP) PO SCH (22:31)
[2019-02-11] MEDS: chlordiazePOXIDE HCL 25 MG CAPSULE PO SCH ×4 (06:55→22:03)
[2019-02-11] MEDS: metFORMIN HCL 500 MG TABLET (FP) PO SCH ×2 (07:02→17:38)
[2019-02-11] MEDS: INSULIN SLIDING SCALE (NOVOLOG) 1 VIAL SQ SCH ×3 (07:34→17:35)
[2019-02-11] MEDS: LISINOPRIL 5 MG TABLET (FP) PO SCH (10:36)
[2019-02-11] MEDS: PRENATAL VITAMINS W/ FOLIC ACID TABLET (FP) PO SCH (10:36)
--- NOTE | 2019-02-11 11:44 | PN ---
[facility] CIWA - CIWA Score Nausea/Vomitin-No Nausea/No Vomiting Muscle Tremors: 1-None Visible, but [place] Anxiety: 2 Agitation: 0-Normal Activity Paroxysmal Sweats: 2 Orientation: 0-Oriented Tacttile Disturbances: 2-Mild Itch/Numbness/Burn Auditory Disturbances: 0-None Visual Disturbances: 0-None Headache: 1-Very Mild CIWA-Ar Total Score: 8 S Progress Note (SOAP) Subjective: c/o of increase thirst, interrupted sleep, chills, sweats. Objective: 02/11/19 11:44 Vital Signs Temperature 97.3 F L 02/11/19 07:20 Pulse Rate 82 02/11/19 07:20 Respiratory Rate 18 02/11/19 07:20 Blood Pressure 158/102 H 02/10/19 20:42 O2 Sat by Pulse Oximetry (%) Laboratory Last Values WBC 5.4 K/mm3 (4.0-10.0) 02/09/19 13:30 RBC 4.48 M/mm3 (4.00-5.60) 02/09/19 13:30 Hgb 14.8 GM/dL (11.7-16.9) 02/09/19 13:30 Hct 42.7 % (35.4-49) 02/09/19 13:30 MCV 95.2 fl (80-96) 02/09/19 13:30 MCH 33.0 pg (25.7-33.7) 02/09/19 13:30 MCHC 34.6 g/dl (32.0-35.9) 02/09/19 13:30 RDW 14.7 % (11.9-15.9) 02/09/19 13:30 Plt Count 282 K/MM3 (134-434) 02/09/19 13:30 MPV 8.6 fl (7.5-11.1) 02/09/19 13:30 Sodium 139 mmol/L (136-145) 02/09/19 13:30 Potassium 4.6 mmol/L (3.5-5.1) 02/09/19 13:30 Chloride 104 mmol/L (98-107) 02/09/19 13:30 Carbon Dioxide 29 mmol/L (21-32) 02/09/19 13:30 Anion Gap 6 MMOL/L (8-16) L 02/09/19 13:30 BUN 12.2 mg/dL (7-18) 02/09/19 13:30 Creatinine 0.9 mg/dL (0.55-1.3) 02/09/19 13:30 Est GFR (CKD-EPI)AfAm 105.72 02/09/19 13:30 Est GFR (CKD-EPI)NonAf 91.22 02/09/19 13:30 POC Glucometer 339 UNITS (80-120) 02/11/19 05:53 Random Glucose 341 mg/dL (74-106) H* 02/09/19 13:30 Calcium 9.0 mg/dL (8.5-10.1) 02/09/19 13:30 Total Bilirubin 0.8 mg/dL (0.2-1) 02/09/19 13:30 AST 21 U/L (15-37) 02/09/19 13:30 ALT 41 U/L (13-61) 02/09/19 13:30 Alkaline Phosphatase 165 U/L (45-117) H 02/09/19 13:30 Total Protein 8.3 g/dl (6.4-8.2) H 02/09/19 13:30 Albumin 3.6 g/dl (3.4-5.0) 02/09/19 13:30 RPR Titer Nonreactive (NONREACTIVE) 02/09/19 13:30 labs reviewed, continue sliding scale Assessment: 02/11/19 11:45 Aox3 no acute distress, full ROM, no adventitious breath sounds, full ROM, no edema , ambulating in the unit Plan: continue detox continue sliding scale MAT discussed with patient, encourage to attend rehab patient to follow up with PCP upon d/c continue to monitor
[2019-02-11] MEDS: THIAMINE HCL 100 MG TABLET (FP) PO SCH (22:03)
[2019-02-12] MEDS ORDERED: chlordiazePOXIDE HCL 10 MG CAPSULE PO PRN
[2019-02-12] MEDS ORDERED: chlordiazePOXIDE HCL 10 MG CAPSULE PO SCH (05:00)
[2019-02-12] MEDS ORDERED: INSULIN SLIDING SCALE (NOVOLOG) 1 VIAL SQ ONE (06:00)
[2019-02-12] MEDS: metFORMIN HCL 500 MG TABLET (FP) PO SCH (06:15)
[2019-02-12 08:05] VITALS: BP 153/96; PULSE 93; TEMP 96.1
--- NOTE | 2019-02-12 08:57 | PN ---
S Progress Note Note: pt was admitted in withdrawals pt c/o of withdrawals symptoms and aggressive symptomatic management attempted however, pt in spite of extensive motivational counseling regarding the risk of relapse DT, seizures and or /loss pt chose to sign out.
--- NOTE | 2019-02-12 09:03 | DS ---
[facility] Detox Discharge Summary Admission Date: 02/09/19 - Physical Exam Results Vital Signs: Vital Signs Temperature 96.1 F L 02/12/19 08:04 Pulse Rate 93 H 02/12/19 08:04 Respiratory Rate 18 02/12/19 08:04 Blood Pressure 153/96 02/12/19 08:04 O2 Sat by Pulse Oximetry (%) Pertinent Admission Physical Exam Findings: pt arrived in the [facility] Laboratory Tests 02/09/19 02/09/19 02/09/19 13:30 13:30 13:30 WBC 5.4 RBC 4.48 Hgb 14.8 Hct 42.7 MCV 95.2 MCH 33.0 MCHC 34.6 RDW 14.7 Plt Count 282 MPV 8.6 Sodium 139 Potassium 4.6 Chloride 104 Carbon Dioxide 29 Anion Gap 6 L BUN 12.2 Creatinine 0.9 Est GFR (CKD-EPI)AfAm 105.72 Est GFR (CKD-EPI)NonAf 91.22 POC Glucometer Random Glucose 341 H* Calcium 9.0 Total Bilirubin 0.8 AST 21 ALT 41 Alkaline Phosphatase 165 H Total Protein 8.3 H Albumin 3.6 RPR Titer Nonreactive 02/09/19 02/09/19 02/09/19 14:08 16:53 22:03 WBC RBC Hgb Hct MCV MCH MCHC RDW Plt Count MPV Sodium Potassium Chloride Carbon Dioxide Anion Gap BUN Creatinine Est GFR (CKD-EPI)AfAm Est GFR (CKD-EPI)NonAf POC Glucometer 316 469 329 Random Glucose Calcium Total Bilirubin AST ALT Alkaline Phosphatase Total Protein Albumin RPR Titer 02/10/19 02/10/19 02/10/19 05:58 11:36 16:52 WBC RBC Hgb Hct MCV MCH MCHC RDW Plt Count MPV Sodium Potassium Chloride Carbon Dioxide Anion Gap BUN Creatinine Est GFR (CKD-EPI)AfAm Est GFR (CKD-EPI)NonAf POC Glucometer 306 319 419 Random Glucose Calcium Total Bilirubin AST ALT Alkaline Phosphatase Total Protein Albumin RPR Titer 02/10/19 02/11/19 02/11/19 22:20 05:53 11:43 WBC RBC Hgb Hct MCV MCH MCHC RDW Plt Count MPV Sodium Potassium Chloride Carbon Dioxide Anion Gap BUN Creatinine Est GFR (CKD-EPI)AfAm Est GFR (CKD-EPI)NonAf POC Glucometer 338 339 390 Random Glucose Calcium Total Bilirubin AST ALT Alkaline Phosphatase Total Protein Albumin RPR Titer 02/11/19 02/12/19 16:49 05:55 WBC RBC Hgb Hct MCV MCH MCHC RDW Plt Count MPV Sodium Potassium Chloride Carbon Dioxide Anion Gap BUN Creatinine Est GFR (CKD-EPI)AfAm Est GFR (CKD-EPI)NonAf POC Glucometer 246 332 Random Glucose Calcium Total Bilirubin AST ALT Alkaline Phosphatase Total Protein Albumin RPR Titer today pt is leaving without completing his detox regimen pt states he feels fine and wants to go home no s/s of withdrawals at the present pt was made aware of all risks of relapse, seizers, and or loss - Treatment Patient has Accepted a Rehab Referral to: pt declined rehab; referral provided for aftercare - Medication Discharge Medications: Ambulatory Orders Amlodipine Besylate [Norvasc -] 5 mg PO DAILY #30 tablet MDD 1 06/25/18 Lisinopril [Prinivil] 5 mg PO DAILY #30 tablet 06/25/18 Metformin HCl [Glucophage] 500 mg PO DAILY #30 tablet 06/25/18 - Diagnosis (1) Alcohol dependence with uncomplicated withdrawal Current Visit: Yes Status: Chronic (2) Cocaine dependence Current Visit: Yes Status: Acute (3) DM2 (diabetes mellitus, type 2) Current Visit: Yes Status: Chronic Qualifiers: Diabetes mellitus oysterman insulin use: without oysterman use Diabetes mellitus complication status: without complication Qualified Code(s): E11.9 - Type 2 diabetes mellitus without complications (4) Essential hypertension Current Visit: Yes Status: Chronic (5) History of positive PPD Current Visit: No Status: Chronic (6) Nicotine dependence Current Visit: No Status: Chronic Qualifiers: Nicotine product type: cigarettes Substance use status: uncomplicated Qualified Code(s): F17.210 - Nicotine dependence, cigarettes, uncomplicated (7) Old cerebrovascular accident (CVA) without late effect Current Visit: No Status: Chronic - AMA Did Patient Leave Against Medical Advice: Yes (pt declined rehab; referral provided)
[2019-02-13] MEDS ORDERED: chlordiazePOXIDE HCL 10 MG CAPSULE PO SCH (05:00)
[2019-02-14] MEDS ORDERED: chlordiazePOXIDE HCL 10 MG CAPSULE PO ONE (05:00)
== END 2019-02-12 09:07 | disposition home or self-care (01) | DRG 774 ==
LOC: YASAS 10:36 → Y6N 13:59
PROVIDERS: ADMIT Surgery; ATTEND Surgery
PROC: HZ2ZZZZ Detoxification Services for Substance Abuse Treatment (ICD-10-PCS; principal; 2019-02-10)
DX: F10.230 Alcohol dependence with withdrawal, uncomplicated (principal); F13.20 Sedative, hypnotic or anxiolytic dependence, uncomplicated; F14.20 Cocaine dependence, uncomplicated; F17.210 Nicotine dependence, cigarettes, uncomplicated; Z21 Asymptomatic human immunodeficiency virus [HIV] infection status; I10 Essential (primary) hypertension; E11.65 Type 2 diabetes mellitus with hyperglycemia; Z79.84 Long term (current) use of oral hypoglycemic drugs; R76.11 Nonspecific reaction to tuberculin skin test without active tuberculosis; Z86.73 Personal history of transient ischemic attack (TIA), and cerebral infarction without residual deficits; Z59.0 Homelessness
CPT/HCPCS: 36415; 80053; 82962; 85027; 86593

== ENCOUNTER 2019-03-02 12:15 | Inpatient (IN) | payer OTHER ==
[2019-03-02 14:14] VITALS: BMI 29.7
[2019-03-02] MEDS ORDERED: MAGNESIUM HYDROX 2400MG/30ML ORAL SUSPENSION 30 ML CUP PO PRN (16:40)
[2019-03-02] MEDS ORDERED: IBUPROFEN 400 MG TABLET (FP) PO PRN (16:40)
[2019-03-02] MEDS ORDERED: P-EPHED 60MG/TRIPROLIDI 2.5MG TABLET PO PRN (16:40)
[2019-03-02] MEDS ORDERED: MENTHOL/PHENOL 1 EACH UD MM PRN (16:40)
[2019-03-02] MEDS ORDERED: MAGNESIUM CITRATE 300 ML BOTTLE PO PRN (16:40)
[2019-03-02] MEDS ORDERED: guaiFENesin 200 MG/10 ML 10 ML UNIT-DOSE CUPS PO PRN (16:40)
[2019-03-02] MEDS ORDERED: ACETAMINOPHEN 325 MG TABLET (FP) PO PRN (16:40)
[2019-03-02] MEDS ORDERED: MAG HYDROX/AL HYDROX/SIMETH 30 ML UNIT-DOSE CUP PO PRN (16:40)
[2019-03-02] MEDS ORDERED: LOPERAMIDE HCL 2 MG CAPSULE PO PRN (16:40)
--- NOTE | 2019-03-02 17:03 | HP ---
CIWA Score Nausea/Vomitin-No Nausea/No Vomiting Muscle Tremors: None Anxiety: 4-Mod. Anxious/Guarded Agitation: 0-Normal Activity Paroxysmal Sweats: No Perspiration Orientation: 3-Disoriented Date>2 days Tacttile Disturbances: 1-Very Mild Itch/Numbness Auditory Disturbances: 0-None Visual Disturbances: 0-None Headache: 0-None Present CIWA-Ar Total Score: 8 - Admission Criteria OASAS Guidelines: Admission for Medically Managed Detox: Requires at least one of the followin. CIWA greater than 12 2. Seizures within the past 24 hours 3. Delirium tremens within the past 24 hours 4. Hallucinations within the past 24 hours 5. Acute intervention needed for co occurring medical disorder 6. Acute intervention needed for co occurring psychiatric disorder 7. Severe withdrawal that cannot be handled at a lower level of care (continued vomiting, continued diarrhea, abnormal vital signs) requiring intravenous medication and/or fluids 8. Admission ROS [facility] Chief Complaint: "tired of doing things that are bad" wants rehab from ETOH and crack cocain use Allergies/Adverse Reactions: Allergies Allergy/AdvReac Type Severity Reaction Status Date / Time No Known Allergies Allergy Verified 03/02/19 14:06 History of Present Illness: Mr. Sands is a 63yo male with hx of ETOH use disorder, cocaine use disorder, tobacco use disorder, HTN, DM, and CVA who presents for rehab from ETOH and crack cocaine use. The pt reports being "tired of doing things that are bad" and wants to stop using. He was in detox here on 02/09/19 and left AMA on . The pt reports drinking 3-4 pints/day of hard liquor and began drinking in 1990. He also reports smoking crack cocaine 4 blocks/daily starting in 1994. Pt also smokes 1 ppd of cigarettes since age 16. Pt is currently endorsing bilateral hand pain and anxiety. He denies n/v/d, fever, chills, abdominal pain, and body aches. CIWA 9. Pt is homeless and does not have family he is in contact with normally. He reports 2 of his 3 children have . He is non-compliant with meds. PMH: ETOH use disorder, cocaine use disorder, tobacco use disorder, HTN, DM, CVA surgical hx: knee social hx: see above meds: none NKDA Exam Limitations: Other (A/O x1 to person) - Ebola screening Have you traveled outside of the country in the last 21 days: No Have you had contact with anyone from an Ebola affected area: No - Review of Systems Constitutional: No Symptoms Reported EENT: reports: No Symptoms Reported Respiratory: reports: No Symptoms reported Cardiac: reports: No Symptoms Reported GI: reports: No Symptoms Reported : reports: No Symptoms Reported Musculoskeletal: reports: Joint Pain (bilateral hands) Integumentary: reports: No Symptoms Reported Neuro: reports: No Symptoms reported Endocrine: reports: No Symptoms Reported Hematology: reports: No Symptoms Reported Psychiatric: reports: Mood/Affect Appropiate Patient History - Patient Medical History Hx Anemia: No Hx Asthma: No Hx Chronic Obstructive Pulmonary Disease (COPD): No Hx Cancer: No Hx Cardiac Disorders: No Hx Congestive Heart Failure: No Hx Hypertension: Yes Hx Hypercholesterolemia: No Hx Pacemaker: No HX Cerebrovascular Accident: Yes (STROKE 2003--[place]) Hx Seizures: No Hx Dementia: No Hx Diabetes: Yes (Type II) Hx Gastrointestinal Disorders: No Hx Liver Disease: No Hx Genitourinary Disorders: No Hx Sexually Transmitted Disorders: No Hx Renal Disease (ESRD): No Hx Thyroid Disease: No Hx Human Immunodeficiency Virus (HIV): No (last 2011 negative) Hx Hepatitis C: No Hx Depression: No Hx Suicide Attempt: No Hx Bipolar Disorder: No Hx Schizophrenia: No - Patient Surgical History Past Surgical History: Yes Hx Neurologic Surgery: No Hx Cataract Extraction: No Hx Cardiac Surgery: No Hx Lung Surgery: No Hx Breast Surgery: No Hx Breast Biopsy: No Hx Abdominal Surgery: No Hx Appendectomy: No Hx Cholecystectomy: No Hx Genitourinary Surgery: No Hx Section: No Hx Orthopedic Surgery: Yes (s/p surgery for fx right knee and right leg in 1998) Hx Hysterectomy: No Anesthesia Reaction: No - Smoking Cessation Smoking history: Current every day smoker Have you smoked in the past 12 months: Yes Aproximately how many cigarettes per day: 20 Cigars Per Day: 0 Hx Chewing Tobacco Use: No Initiated information on smoking cessation: Yes 'Breaking Loose' booklet given: 03/02/19 - Substances abused Alcohol Substance route: Oral Frequency: Daily Amount used: 4 pints vodka Age of first use: 16 Date of last use: 03/01/19 Crack Substance route: Smoking Frequency: Daily Amount used: 10 BAGS Age of first use: 52 Date of last use: 03/01/19 Family Disease History - Family Disease History Family Disease History: Diabetes: Father, Heart Disease: Mother (mother alcoholic ,HTN), Other: Mother Admission Physical Exam [facility] - Vital Signs Vital Signs: Vital Signs - 24 hr 03/02/19 14:09 Temperature 98.8 F Pulse Rate 74 Respiratory 18 Rate Blood Pressure 159/105 H - Physical General Appearance: Yes: No Apparent Distress HEENTM: Yes: Hearing grossly Normal, DINESH Respiratory: Yes: Lungs Clear, Normal Breath Sounds, No Respiratory Distress Neck: Yes: Within Normal Limits Cardiology: Yes: Regular Rhythm, Regular Rate, Systolic Murmur Abdominal: Yes: Normal Bowel Sounds, Non Tender Back: Yes: Within Normal Limits Musculoskeletal: Yes: full range of Motion Extremities: Yes: Normal Range of Motion Neurological: Yes: flagger II-XII NML intact, Alert, Motor Strength 5/5, Normal Mood /Affect. No: Fully Oriented Integumentary: Yes: Within Normal Limits Cleared for Admission [facility] - Detox or Rehab [facility] Level of Care: Medically Managed Breathalyzer - Breathalyzer Breathalyzer: 0 Urine Drug Screen - Test Device Lot number: [id number] Expiration date: 11/25/20 - Control Is test valid?: Yes - Results Drug screen NEGATIVE: No Urine drug screen results: BZO-Benzodiazepines Inpatient Rehab Admission - Rehab Decision to Admit Inpatient rehab admission?: Yes - Initial Determination Are CD services needed?: Yes Free of communicable disease: Yes Not in need of hospitalization: Yes - Rehab Admission Criteria Previous failed treatment: Yes Poor recovery environment: Yes Comorbidities: Yes Lacks judgement: Yes Patient is meeting Inpatient Rehab admission criteria:: Yes
--- NOTE | 2019-03-02 17:06 | PN ---
Teaching Attending Note Name of Resident: Risa Ybarra ATTENDING PHYSICIAN STATEMENT I saw and evaluated the patient. I reviewed the resident's note and discussed the case with the resident. I agree with the resident's findings and plan as documented. SUBJECTIVE: pt with HTN, DM here for alcohol use disorder OBJECTIVE: ASSESSMENT AND PLAN:
[2019-03-02] MEDS: NICOTINE 21 MG/24 HOURS TOPICAL PATCH TD SCH (17:33)
[2019-03-02] MEDS: LISINOPRIL 10 MG TABLET (FP) PO SCH (17:33)
[2019-03-02] MEDS: THIAMINE HCL 100 MG TABLET (FP) PO SCH (22:00)
[2019-03-03] MEDS: NICOTINE 21 MG/24 HOURS TOPICAL PATCH TD SCH (10:42)
[2019-03-03] MEDS: PRENATAL VITAMINS W/ FOLIC ACID TABLET (FP) PO SCH (10:43)
[2019-03-03] MEDS: LISINOPRIL 10 MG TABLET (FP) PO SCH (10:43)
[2019-03-03 13:06] LABS: HEMATOCRIT 41.6 % (35.4-49); HEMOGLOBIN 14.3 GM/dL (11.7-16.9); MCHC 34.4 g/dl (32.0-35.9); MEAN PLT VOLUME 9.4 fl (7.5-11.1); PLATELET COUNT 308 K/MM3 (134-434); RBC 4.47 M/mm3 (4.00-5.60); RDW 13.6 % (11.9-15.9); WHITE BLOOD COUNT 5.1 K/mm3 (4.0-10.0)
[2019-03-03 13:15] LABS: ALBUMIN 3.2 g/dl (3.4-5.0); BILIRUBIN,TOTAL 0.7 mg/dL (0.2-1); BLOOD UREA NITROGEN 18.9 mg/dL (7-18); CALCIUM 8.7 mg/dL (8.5-10.1); CREATININE 0.9 mg/dL (0.55-1.3); POTASSIUM 4.2 mmol/L (3.5-5.1); TOT PROT 7.3 g/dl (6.4-8.2)
--- NOTE | 2019-03-03 14:16 | PN ---
[facility] Progress Note Note: New pt admitted yesterday with a hx of type 2 DM and home medication of metformin 500 mg bid in past hospitalizations here. Glucose this morning was 452 mg/day. Pt states he has not been taking his medications because has non and has not seen any doctor. Alert o x 3. oob ambulating with steady gait. Participating in unit activities. Vital Signs (72 hours) 03/02/19 03/02/19 03/02/19 14:09 17:25 21:00 Temperature 98.8 F 97.5 F L Pulse Rate 74 64 70 Respiratory 18 18 18 Rate Blood Pressure 159/105 H 177/116 H 150/105 H 03/03/19 03/03/19 03/03/19 00:30 03:30 07:02 Temperature 97.6 F Pulse Rate 65 Respiratory 18 18 18 Rate Blood Pressure 163/111 H 03/03/19 10:00 Temperature Pulse Rate 73 Respiratory Rate Blood Pressure 137/73 Laboratory Tests 03/03/19 03/03/19 09:30 09:30 WBC 5.1 RBC 4.47 Hgb 14.3 Hct 41.6 MCV 93.0 MCH 32.0 MCHC 34.4 RDW 13.6 Plt Count 308 MPV 9.4 Sodium 134 L Potassium 4.2 Chloride 100 Carbon Dioxide 26 Anion Gap 8 BUN 18.9 H Creatinine 0.9 Est GFR (CKD-EPI)AfAm 105.72 Est GFR (CKD-EPI)NonAf 91.22 Random Glucose 452 H* Calcium 8.7 Total Bilirubin 0.7 AST 27 ALT 53 Alkaline Phosphatase 124 H Total Protein 7.3 Albumin 3.2 L A:Hx of T2DM Plan:Start BGM BID D/w pt will Restart Glucophage 500 mg po BID restartAmlodipine 10 mg po daily, first dose now restart lisinopril 10 mg po daily Pt agrees to poc.
[2019-03-03] MEDS ORDERED: LISINOPRIL 5 MG TABLET (FP) PO SCH (14:30)
[2019-03-03] MEDS: amLODIPine BESYLATE 5 MG TABLET (FP) PO SCH (16:08)
[2019-03-03] MEDS ORDERED: INSULIN (NOVOLOG) ASPART 100 UNITS/ML 10ML VIAL ONE (16:42)
[2019-03-03] MEDS: metFORMIN HCL 500 MG TABLET (FP) PO SCH (17:06)
[2019-03-03] MEDS: INSULIN SLIDING SCALE (NOVOLOG) 1 VIAL SQ SCH (17:07)
[2019-03-03] MEDS: THIAMINE HCL 100 MG TABLET (FP) PO SCH (21:09)
[2019-03-03 21:23] LABS: PH,URINE 6.5 (5.0-8.0); URINE APPEARANCE CLEAR; URINE BILIRUBIN NEGATIVE (NEGATIVE); URINE COLOR YELLOW; URINE GLUCOSE (UA) 3+ (NEGATIVE); URINE KETONE NEGATIVE (NEGATIVE); URINE LEUK ESTERASE NEGATIVE (NEGATIVE); URINE NITRITE NEGATIVE (NEGATIVE); URINE PROTEIN NEGATIVE (NEGATIVE)
[2019-03-04] MEDS: metFORMIN HCL 500 MG TABLET (FP) PO SCH ×2 (06:18→16:39)
[2019-03-04] MEDS ORDERED: INSULIN (NOVOLOG) ASPART 100 UNITS/ML 10ML VIAL ONE ×3 (06:19→16:30)
[2019-03-04] MEDS: INSULIN SLIDING SCALE (NOVOLOG) 1 VIAL SQ SCH ×2 (07:03→16:41)
[2019-03-04] MEDS: amLODIPine BESYLATE 5 MG TABLET (FP) PO SCH (10:31)
[2019-03-04] MEDS: PRENATAL VITAMINS W/ FOLIC ACID TABLET (FP) PO SCH (10:31)
[2019-03-04] MEDS: NICOTINE 21 MG/24 HOURS TOPICAL PATCH TD SCH (10:31)
[2019-03-04] MEDS: LISINOPRIL 10 MG TABLET (FP) PO SCH (10:31)
[2019-03-04] MEDS: THIAMINE HCL 100 MG TABLET (FP) PO SCH (21:54)
[2019-03-05] MEDS: metFORMIN HCL 500 MG TABLET (FP) PO SCH ×2 (06:22→16:48)
[2019-03-05] MEDS ORDERED: INSULIN (NOVOLOG) ASPART 100 UNITS/ML 10ML VIAL ONE ×2 (06:25→16:55)
[2019-03-05] MEDS: INSULIN SLIDING SCALE (NOVOLOG) 1 VIAL SQ SCH ×2 (07:46→16:58)
[2019-03-05] MEDS: LISINOPRIL 10 MG TABLET (FP) PO SCH (10:36)
[2019-03-05] MEDS: amLODIPine BESYLATE 5 MG TABLET (FP) PO SCH (10:36)
[2019-03-05] MEDS: PRENATAL VITAMINS W/ FOLIC ACID TABLET (FP) PO SCH (10:36)
[2019-03-05] MEDS: NICOTINE 21 MG/24 HOURS TOPICAL PATCH TD SCH (10:36)
[2019-03-05] MEDS: MELATONIN 5 MG TABLETS PO PRN (22:01)
[2019-03-05] MEDS: THIAMINE HCL 100 MG TABLET (FP) PO SCH (22:01)
[2019-03-06] MEDS: metFORMIN HCL 500 MG TABLET (FP) PO SCH ×2 (06:08→17:36)
[2019-03-06] MEDS ORDERED: INSULIN (NOVOLOG) ASPART 100 UNITS/ML 10ML VIAL ONE ×2 (06:10→17:34)
[2019-03-06] MEDS: INSULIN SLIDING SCALE (NOVOLOG) 1 VIAL SQ SCH ×2 (06:10→17:36)
[2019-03-06] MEDS: NICOTINE 21 MG/24 HOURS TOPICAL PATCH TD SCH (10:59)
[2019-03-06] MEDS: LISINOPRIL 10 MG TABLET (FP) PO SCH (10:59)
[2019-03-06] MEDS: amLODIPine BESYLATE 5 MG TABLET (FP) PO SCH (10:59)
[2019-03-06] MEDS: PRENATAL VITAMINS W/ FOLIC ACID TABLET (FP) PO SCH (10:59)
[2019-03-06] MEDS: THIAMINE HCL 100 MG TABLET (FP) PO SCH (22:50)
[2019-03-07] MEDS: metFORMIN HCL 500 MG TABLET (FP) PO SCH ×2 (06:50→16:53)
[2019-03-07] MEDS: INSULIN SLIDING SCALE (NOVOLOG) 1 VIAL SQ SCH ×2 (06:53→16:55)
[2019-03-07] MEDS: NICOTINE 21 MG/24 HOURS TOPICAL PATCH TD SCH (11:48)
[2019-03-07] MEDS: PRENATAL VITAMINS W/ FOLIC ACID TABLET (FP) PO SCH (11:51)
[2019-03-07] MEDS: amLODIPine BESYLATE 5 MG TABLET (FP) PO SCH (11:51)
[2019-03-07] MEDS: LISINOPRIL 10 MG TABLET (FP) PO SCH (11:51)
[2019-03-07] MEDS: THIAMINE HCL 100 MG TABLET (FP) PO SCH (21:58)
[2019-03-08] MEDS: metFORMIN HCL 500 MG TABLET (FP) PO SCH ×2 (06:16→16:34)
[2019-03-08] MEDS: INSULIN SLIDING SCALE (NOVOLOG) 1 VIAL SQ SCH ×2 (07:22→16:35)
[2019-03-08] MEDS ORDERED: INSULIN (NOVOLOG) ASPART 100 UNITS/ML 10ML VIAL ONE (07:24)
[2019-03-08] MEDS: LISINOPRIL 10 MG TABLET (FP) PO SCH (10:46)
[2019-03-08] MEDS: amLODIPine BESYLATE 5 MG TABLET (FP) PO SCH (10:46)
[2019-03-08] MEDS: NICOTINE 21 MG/24 HOURS TOPICAL PATCH TD SCH (10:47)
[2019-03-08] MEDS: PRENATAL VITAMINS W/ FOLIC ACID TABLET (FP) PO SCH (10:47)
[2019-03-08] MEDS: THIAMINE HCL 100 MG TABLET (FP) PO SCH (21:53)
[2019-03-09] MEDS ORDERED: INSULIN (NOVOLOG) ASPART 100 UNITS/ML 10ML VIAL ONE ×2 (06:34→16:59)
[2019-03-09] MEDS: metFORMIN HCL 500 MG TABLET (FP) PO SCH ×2 (07:09→16:56)
[2019-03-09] MEDS: INSULIN SLIDING SCALE (NOVOLOG) 1 VIAL SQ SCH ×2 (07:09→16:56)
[2019-03-09] MEDS: NICOTINE 21 MG/24 HOURS TOPICAL PATCH TD SCH (10:40)
[2019-03-09] MEDS: amLODIPine BESYLATE 5 MG TABLET (FP) PO SCH (10:40)
[2019-03-09] MEDS: LISINOPRIL 10 MG TABLET (FP) PO SCH (10:40)
[2019-03-09] MEDS: PRENATAL VITAMINS W/ FOLIC ACID TABLET (FP) PO SCH (10:40)
[2019-03-09] MEDS: THIAMINE HCL 100 MG TABLET (FP) PO SCH (22:03)
[2019-03-10] MEDS: INSULIN SLIDING SCALE (NOVOLOG) 1 VIAL SQ SCH ×2 (06:53→18:14)
[2019-03-10] MEDS: metFORMIN HCL 500 MG TABLET (FP) PO SCH ×2 (06:55→18:14)
[2019-03-10] MEDS: LISINOPRIL 10 MG TABLET (FP) PO SCH (10:55)
[2019-03-10] MEDS: PRENATAL VITAMINS W/ FOLIC ACID TABLET (FP) PO SCH (10:55)
[2019-03-10] MEDS: amLODIPine BESYLATE 5 MG TABLET (FP) PO SCH (10:55)
[2019-03-10] MEDS: NICOTINE 21 MG/24 HOURS TOPICAL PATCH TD SCH (14:32)
[2019-03-10] MEDS: THIAMINE HCL 100 MG TABLET (FP) PO SCH (21:17)
[2019-03-10] MEDS: MELATONIN 5 MG TABLETS PO PRN (21:17)
[2019-03-11] MEDS ORDERED: INSULIN (NOVOLOG) ASPART 100 UNITS/ML 10ML VIAL ONE (07:20)
[2019-03-11] MEDS: metFORMIN HCL 500 MG TABLET (FP) PO SCH (07:33)
[2019-03-11] MEDS: INSULIN SLIDING SCALE (NOVOLOG) 1 VIAL SQ SCH (07:34)
[2019-03-11 08:46] VITALS: BP 139/86; PULSE 74; TEMP 97.5
[2019-03-11] MEDS: amLODIPine BESYLATE 5 MG TABLET (FP) PO SCH (10:19)
[2019-03-11] MEDS: NICOTINE 21 MG/24 HOURS TOPICAL PATCH TD SCH (10:19)
[2019-03-11] MEDS: LISINOPRIL 10 MG TABLET (FP) PO SCH (10:19)
[2019-03-11] MEDS: PRENATAL VITAMINS W/ FOLIC ACID TABLET (FP) PO SCH (10:19)
--- NOTE | 2019-03-11 12:11 | PN ---
[facility] Progress Note (SOAP) Subjective: Pt is a 63 y/o male admitted to rehab on 03/02/19 requesting an early discharge today. Pt met with his counselor and has been referred to CD aftercare at [facility]. Pt is homeless. Pt reports he has no primary care. Pt will be connected to [facility] through [facility] when he starts program after discharge today. Pt has a hx of DM and HTN. Courtesy medications for 30 days electronically sent to [facility] on and [facility] for picker and sorter load and unload after discharge. Pt denies S/H/i. Objective: 03/11/19 12:10 Vital Signs - 24 hr 03/11/19 03/11/19 03/11/19 00:30 03:30 06:30 Temperature 97.5 F L Pulse Rate 74 Respiratory 18 18 18 Rate Blood Pressure 139/86 Laboratory Tests 03/03/19 03/03/19 03/03/19 09:30 09:30 09:30 WBC 5.1 RBC 4.47 Hgb 14.3 Hct 41.6 MCV 93.0 MCH 32.0 MCHC 34.4 RDW 13.6 Plt Count 308 MPV 9.4 Sodium 134 L Potassium 4.2 Chloride 100 Carbon Dioxide 26 Anion Gap 8 BUN 18.9 H Creatinine 0.9 Est GFR (CKD-EPI)AfAm 105.72 Est GFR (CKD-EPI)NonAf 91.22 POC Glucometer Random Glucose 452 H* Calcium 8.7 Total Bilirubin 0.7 AST 27 ALT 53 Alkaline Phosphatase 124 H Total Protein 7.3 Albumin 3.2 L Urine Color Urine Appearance Urine pH Ur Specific [place] Urine Protein Urine Glucose (UA) Urine Ketones Urine Blood Urine Nitrite Urine Bilirubin Urine Urobilinogen Ur Leukocyte Esterase RPR Titer Nonreactive 03/03/19 03/03/19 03/04/19 16:00 16:33 06:16 WBC RBC Hgb Hct MCV MCH MCHC RDW Plt Count MPV Sodium Potassium Chloride Carbon Dioxide Anion Gap BUN Creatinine Est GFR (CKD-EPI)AfAm Est GFR (CKD-EPI)NonAf POC Glucometer 348 233 Random Glucose Calcium Total Bilirubin AST ALT Alkaline Phosphatase Total Protein Albumin Urine Color Yellow Urine Appearance Clear Urine pH 6.5 Ur Specific [place] 1.039 H Urine Protein Negative Urine Glucose (UA) 3+ H Urine Ketones Negative Urine Blood Negative Urine Nitrite Negative Urine Bilirubin Negative Urine Urobilinogen 1.0 Ur Leukocyte Esterase Negative RPR Titer 03/04/19 03/05/19 03/05/19 16:39 06:22 16:42 WBC RBC Hgb Hct MCV MCH MCHC RDW Plt Count MPV Sodium Potassium Chloride Carbon Dioxide Anion Gap BUN Creatinine Est GFR (CKD-EPI)AfAm Est GFR (CKD-EPI)NonAf POC Glucometer [phone] Random Glucose Calcium Total Bilirubin AST ALT Alkaline Phosphatase Total Protein Albumin Urine Color Urine Appearance Urine pH Ur Specific [place] Urine Protein Urine Glucose (UA) Urine Ketones Urine Blood Urine Nitrite Urine Bilirubin Urine Urobilinogen Ur Leukocyte Esterase RPR Titer 03/06/19 03/06/19 03/07/19 06:08 17:22 06:49 WBC RBC Hgb Hct MCV MCH MCHC RDW Plt Count MPV Sodium Potassium Chloride Carbon Dioxide Anion Gap BUN Creatinine Est GFR (CKD-EPI)AfAm Est GFR (CKD-EPI)NonAf POC Glucometer [phone] Random Glucose Calcium Total Bilirubin AST ALT Alkaline Phosphatase Total Protein Albumin Urine Color Urine Appearance Urine pH Ur Specific [place] Urine Protein Urine Glucose (UA) Urine Ketones Urine Blood Urine Nitrite Urine Bilirubin Urine Urobilinogen Ur Leukocyte Esterase RPR Titer 03/07/19 03/08/19 03/08/19 16:52 06:15 16:33 WBC RBC Hgb Hct MCV MCH MCHC RDW Plt Count MPV Sodium Potassium Chloride Carbon Dioxide Anion Gap BUN Creatinine Est GFR (CKD-EPI)AfAm Est GFR (CKD-EPI)NonAf POC Glucometer [phone] Random Glucose Calcium Total Bilirubin AST ALT Alkaline Phosphatase Total Protein Albumin Urine Color Urine Appearance Urine pH Ur Specific [place] Urine Protein Urine Glucose (UA) Urine Ketones Urine Blood Urine Nitrite Urine Bilirubin Urine Urobilinogen Ur Leukocyte Esterase RPR Titer 03/09/19 03/09/19 03/10/19 06:31 16:23 06:53 WBC RBC Hgb Hct MCV MCH MCHC RDW Plt Count MPV Sodium Potassium Chloride Carbon Dioxide Anion Gap BUN Creatinine Est GFR (CKD-EPI)AfAm Est GFR (CKD-EPI)NonAf POC Glucometer [phone] Random Glucose Calcium Total Bilirubin AST ALT Alkaline Phosphatase Total Protein Albumin Urine Color Urine Appearance Urine pH Ur Specific [place] Urine Protein Urine Glucose (UA) Urine Ketones Urine Blood Urine Nitrite Urine Bilirubin Urine Urobilinogen Ur Leukocyte Esterase RPR Titer 03/10/19 03/11/19 18:05 05:48 WBC RBC Hgb Hct MCV MCH MCHC RDW Plt Count MPV Sodium Potassium Chloride Carbon Dioxide Anion Gap BUN Creatinine Est GFR (CKD-EPI)AfAm Est GFR (CKD-EPI)NonAf POC Glucometer 401 274 Random Glucose Calcium Total Bilirubin AST ALT Alkaline Phosphatase Total Protein Albumin Urine Color Urine Appearance Urine pH Ur Specific [place] Urine Protein Urine Glucose (UA) Urine Ketones Urine Blood Urine Nitrite Urine Bilirubin Urine Urobilinogen Ur Leukocyte Esterase RPR Titer Home Medications Medication Instructions Recorded Amlodipine Besylate [Norvasc -] 5 mg PO DAILY #30 tablet MDD 1 03/11/19 Lisinopril [Prinivil] 5 mg PO DAILY #30 tablet 03/11/19 Metformin HCl [Glucophage] 500 mg PO DAILY #30 tablet 03/11/19 Alert o x 3 Heart:s1 s2, rrr Lungs:cta,handy. Abdomen:+bs,nt,prodruded Extremities:No e/c/c, Active ROM; Ambulates with steady gait. Assessment: 03/11/19 15:14 Medically stable [facility] Inpatient Services Medical - Diagnosis (1) Cocaine dependence Status: Chronic (2) DM2 (diabetes mellitus, type 2) Qualifiers: Diabetes mellitus retirement insulin use: without terminal gauger supervisor use Diabetes mellitus complication status: without complication Qualified Code(s): E11.9 - Type 2 diabetes mellitus without complications Status: Chronic (3) Essential hypertension Status: Chronic (4) Nicotine dependence Qualifiers: Nicotine product type: cigarettes Substance use status: uncomplicated Qualified Code(s): F17.210 - Nicotine dependence, cigarettes, uncomplicated Status: Chronic (5) Old cerebrovascular accident (CVA) without late effect Status: Chronic (6) Alcohol dependence Qualifiers: Substance use status: uncomplicated Qualified Code(s): F10.20 - Alcohol dependence, uncomplicated Status: Chronic Initialized on 03/11/19 12:11 - END OF NOTE Plan: D/c pt today. Follow up with CD Aftercare at [facility]. Follow up with primary care at [facility] within 1-2 weeks after discharge.
== END 2019-03-11 10:45 | disposition home or self-care (01) | DRG 772 ==
LOC: YASAS 12:15 → Y5N 16:43
PROVIDERS: ADMIT Neuromusculoskeletal Medicine & OMM; ATTEND Neuromusculoskeletal Medicine & OMM
PROC: HZ42ZZZ Group Counseling for Substance Abuse Treatment, Cognitive-Behavioral (ICD-10-PCS; principal; 2019-03-02)
DX: F10.20 Alcohol dependence, uncomplicated (principal); F14.20 Cocaine dependence, uncomplicated; F17.210 Nicotine dependence, cigarettes, uncomplicated; I10 Essential (primary) hypertension; Z86.73 Personal history of transient ischemic attack (TIA), and cerebral infarction without residual deficits; Z59.0 Homelessness
CPT/HCPCS: 36415; 80053; 81003; 82962; 85027; 86593

== ENCOUNTER 2019-04-06 13:00 | Inpatient (IN) | payer OTHER ==
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
--- NOTE | 2019-04-06 19:04 | PN ---
Teaching Attending Note Name of Resident: Janes Latif ATTENDING PHYSICIAN STATEMENT I saw and evaluated the patient. I reviewed the resident's note and discussed the case with the resident. I agree with the resident's findings and plan as documented. SUBJECTIVE: 70 yo with h/o alcohol use disorder. Pt uses alcohol intermittently. CHELLE-0 Was last here about 3 weeks ago. left rehab early. CIWA score is 2. OBJECTIVE: BP 159/96, AZ 60, Temp 98.1 alert and oriented not tremulous ASSESSMENT AND PLAN: Pt has minimal signs and Sx of withdrawal- will admit to rehab
[2019-04-06] MEDS ORDERED: MAGNESIUM CITRATE 300 ML BOTTLE PO PRN (19:16)
[2019-04-06] MEDS ORDERED: P-EPHED 60MG/TRIPROLIDI 2.5MG TABLET PO PRN (19:16)
[2019-04-06] MEDS ORDERED: LOPERAMIDE HCL 2 MG CAPSULE PO PRN (19:16)
[2019-04-06] MEDS ORDERED: MAG HYDROX/AL HYDROX/SIMETH 30 ML UNIT-DOSE CUP PO PRN (19:16)
[2019-04-06] MEDS ORDERED: guaiFENesin 200 MG/10 ML 10 ML UNIT-DOSE CUPS PO PRN (19:16)
[2019-04-06] MEDS ORDERED: MENTHOL/PHENOL 1 EACH UD MM PRN (19:16)
[2019-04-06] MEDS ORDERED: MAGNESIUM HYDROX 2400MG/30ML ORAL SUSPENSION 30 ML CUP PO PRN (19:16)
[2019-04-06] MEDS ORDERED: ACETAMINOPHEN 325 MG TABLET (FP) PO PRN (19:16)
[2019-04-06] MEDS: THIAMINE HCL 100 MG TABLET (FP) PO SCH (21:52)
[2019-04-06] MEDS ORDERED: MELATONIN 5 MG TABLETS PO PRN (22:00)
[2019-04-07] MEDS: PRENATAL VITAMINS W/ FOLIC ACID TABLET (FP) PO SCH (11:02)
[2019-04-07] MEDS: NICOTINE 14 MG/24 HOURS TOPICAL PATCH TD SCH (11:02)
--- NOTE | 2019-04-07 14:43 | PN ---
[facility] Progress Note Note: Pt is a new admit to rehab from 04/06/19. Pt has a hx of HTN and Type II DM on Amlodipine 5 mg po daily, Lisinopril 5 mg po daily and Glucophage 500 m po daily. Pt was recently discharged from rehab [address] [place] [address] on 03/11/19 and returned back to treatment here yesterday. Pt is undomiciled and appears not to have followed up with CD aftercare upon previous discharge. Vital Signs - 24 hr 04/07/19 04/07/19 03:30 06:51 Temperature 98.1 F Pulse Rate 76 Respiratory 18 18 Rate Blood Pressure 164/100 A/P Hx dm hx htn Restart home medications-- Glucophage 500 mg po daily lisinopril 5 mg po daily amlodipine 5 mg po daily BGM bid
[2019-04-07] MEDS: amLODIPine BESYLATE 5 MG TABLET (FP) PO SCH (16:58)
[2019-04-07] MEDS: LISINOPRIL 5 MG TABLET (FP) PO SCH (16:58)
[2019-04-07] MEDS: THIAMINE HCL 100 MG TABLET (FP) PO SCH (21:43)
[2019-04-08] MEDS: metFORMIN HCL 500 MG TABLET (FP) PO SCH (08:24)
[2019-04-08] MEDS: NICOTINE 14 MG/24 HOURS TOPICAL PATCH TD SCH (10:50)
[2019-04-08] MEDS: PRENATAL VITAMINS W/ FOLIC ACID TABLET (FP) PO SCH (10:50)
[2019-04-08] MEDS: LISINOPRIL 5 MG TABLET (FP) PO SCH (10:50)
[2019-04-08] MEDS: amLODIPine BESYLATE 5 MG TABLET (FP) PO SCH (10:50)
[2019-04-08] MEDS: THIAMINE HCL 100 MG TABLET (FP) PO SCH (22:04)
[2019-04-09] MEDS: metFORMIN HCL 500 MG TABLET (FP) PO SCH (06:45)
[2019-04-09] MEDS: amLODIPine BESYLATE 5 MG TABLET (FP) PO SCH (10:33)
[2019-04-09] MEDS: LISINOPRIL 5 MG TABLET (FP) PO SCH (10:33)
[2019-04-09] MEDS: NICOTINE 14 MG/24 HOURS TOPICAL PATCH TD SCH (10:33)
[2019-04-09] MEDS: PRENATAL VITAMINS W/ FOLIC ACID TABLET (FP) PO SCH (10:33)
[2019-04-09] MEDS: THIAMINE HCL 100 MG TABLET (FP) PO SCH (21:41)
[2019-04-10] MEDS: metFORMIN HCL 500 MG TABLET (FP) PO SCH (06:33)
[2019-04-10] MEDS: amLODIPine BESYLATE 5 MG TABLET (FP) PO SCH (10:32)
[2019-04-10] MEDS: PRENATAL VITAMINS W/ FOLIC ACID TABLET (FP) PO SCH (10:32)
[2019-04-10] MEDS: NICOTINE 14 MG/24 HOURS TOPICAL PATCH TD SCH (10:32)
[2019-04-10] MEDS: LISINOPRIL 5 MG TABLET (FP) PO SCH (10:32)
[2019-04-10] MEDS: THIAMINE HCL 100 MG TABLET (FP) PO SCH (21:43)
[2019-04-11] MEDS: IBUPROFEN 400 MG TABLET (FP) PO PRN (04:15)
[2019-04-11] MEDS: metFORMIN HCL 500 MG TABLET (FP) PO SCH (06:11)
[2019-04-11] MEDS: PRENATAL VITAMINS W/ FOLIC ACID TABLET (FP) PO SCH (10:12)
[2019-04-11] MEDS: LISINOPRIL 5 MG TABLET (FP) PO SCH (10:12)
[2019-04-11] MEDS: NICOTINE 14 MG/24 HOURS TOPICAL PATCH TD SCH (10:12)
[2019-04-11] MEDS: amLODIPine BESYLATE 5 MG TABLET (FP) PO SCH (10:12)
[2019-04-11] MEDS ORDERED: metFORMIN HCL 500 MG TABLET (FP) PO ONE (17:05)
--- NOTE | 2019-04-11 17:08 | PN ---
[facility] Progress Note Note: bgm 360 mgs will give metformin 500 mgs po now then bid instead of daily,diet modification,ngm monitoring
[2019-04-11] MEDS: THIAMINE HCL 100 MG TABLET (FP) PO SCH (22:19)
[2019-04-12] MEDS: metFORMIN HCL 500 MG TABLET (FP) PO SCH ×2 (06:05→16:37)
[2019-04-12] MEDS: LISINOPRIL 5 MG TABLET (FP) PO SCH (10:32)
[2019-04-12] MEDS: NICOTINE 14 MG/24 HOURS TOPICAL PATCH TD SCH (10:32)
[2019-04-12] MEDS: amLODIPine BESYLATE 5 MG TABLET (FP) PO SCH (10:32)
[2019-04-12] MEDS: PRENATAL VITAMINS W/ FOLIC ACID TABLET (FP) PO SCH (10:32)
[2019-04-12] MEDS: IBUPROFEN 400 MG TABLET (FP) PO PRN (21:53)
[2019-04-12] MEDS: THIAMINE HCL 100 MG TABLET (FP) PO SCH (21:53)
[2019-04-13] MEDS: metFORMIN HCL 500 MG TABLET (FP) PO SCH ×2 (06:27→16:47)
[2019-04-13] MEDS: LISINOPRIL 5 MG TABLET (FP) PO SCH (10:37)
[2019-04-13] MEDS: PRENATAL VITAMINS W/ FOLIC ACID TABLET (FP) PO SCH (10:37)
[2019-04-13] MEDS: amLODIPine BESYLATE 5 MG TABLET (FP) PO SCH (10:37)
[2019-04-13] MEDS: NICOTINE 14 MG/24 HOURS TOPICAL PATCH TD SCH (10:37)
[2019-04-13] MEDS: THIAMINE HCL 100 MG TABLET (FP) PO SCH (21:47)
[2019-04-14] MEDS: metFORMIN HCL 500 MG TABLET (FP) PO SCH ×2 (06:39→16:44)
[2019-04-14] MEDS: amLODIPine BESYLATE 5 MG TABLET (FP) PO SCH (10:46)
[2019-04-14] MEDS: LISINOPRIL 5 MG TABLET (FP) PO SCH (10:46)
[2019-04-14] MEDS: PRENATAL VITAMINS W/ FOLIC ACID TABLET (FP) PO SCH (10:46)
[2019-04-14] MEDS: NICOTINE 14 MG/24 HOURS TOPICAL PATCH TD SCH (10:47)
--- NOTE | 2019-04-14 17:06 | PN ---
[facility] Progress Note Note: f/s 326. will increase metformin to 1000 mg BID, cr good.
[2019-04-14] MEDS: THIAMINE HCL 100 MG TABLET (FP) PO SCH (21:19)
[2019-04-15] MEDS: metFORMIN HCL 500 MG TABLET (FP) PO SCH ×2 (06:17→16:38)
[2019-04-15] MEDS: NICOTINE 14 MG/24 HOURS TOPICAL PATCH TD SCH (10:55)
[2019-04-15] MEDS: LISINOPRIL 5 MG TABLET (FP) PO SCH (10:55)
[2019-04-15] MEDS: PRENATAL VITAMINS W/ FOLIC ACID TABLET (FP) PO SCH (10:55)
[2019-04-15] MEDS: amLODIPine BESYLATE 5 MG TABLET (FP) PO SCH (10:55)
[2019-04-15] MEDS: THIAMINE HCL 100 MG TABLET (FP) PO SCH (22:18)
[2019-04-16] MEDS: metFORMIN HCL 500 MG TABLET (FP) PO SCH (06:26)
[2019-04-16 08:21] VITALS: BP 156/97; PULSE 81; TEMP 97.9
--- NOTE | 2019-04-16 10:11 | DS ---
[facility] Rehab Discharge Summary - [facility] Rehab Discharge Summary Admission Date: 04/06/19 Discharge Date: 04/16/19 - History Present History: Alcohol dependence, Cocaine dependence Additional Comments: Pt is a 64 y/o male who has multiple episodes of drug treatment at this facility admitted to rehab for alcohol and cocaine use disorder and discharging today. Previous visit was 03/02/19 to 03/11/19. Pt met with his counselor and was referred to [facility] for CD aftercare. Pt reports he has no primary care provider and utilizes [facility] sometimes for "detox". Pt reported just today he was unable to fill his Rx from previous visit and had to be back here this time. Meanwhile, this provider called [facility] pharmacy at [address] [place] [address] Ph: where Rx was sent on 03/11/19 and was informed that pt's Rx is still there but pt is restricted to a specific pharmacy and he should call his Health insurance. This provider with pt in the office during D/C face to face meeting called [employer] insurance company number at and member services and was unable to get this information as we were transferred multiple times to multiple numbers/ personnel as well as calling [facility] which all took over 50 minutes with no solution at the end. Pt has been given all the numbers he was informed to call after discharge today to straighten up his pharmacy benefit. Pt was also instructed by this life underwriter to call [employer] today and request to be assigned a primary care provider close to his domicile. Pertinent Past History: HTN DM S/P CVA - Discharge Physical Exam Vital Signs: Vital Signs Temperature 97.9 F 04/16/19 08:20 Pulse Rate 81 04/16/19 08:20 Respiratory Rate 20 04/16/19 08:20 Blood Pressure 156/97 04/16/19 08:20 O2 Sat by Pulse Oximetry (%) Alert o x 3 Ambulating with steady gait Nad oob ambulating with steady gait Heent:Normocephalic,eomi,georgette,hearing grossly normal, toothless mouth. cardiac:s1 s2,rrr Lungs:cta,handy. Abdomen:+bs,nt,+fatty Extremities/Skin:No edema, no cyanosis; skin intact. Pertinent Admission Physical Exam Findings: Laboratory Tests 04/07/19 04/09/19 04/10/19 16:37 06:44 06:08 POC Glucometer 284 248 230 04/11/19 04/11/19 04/12/19 06:11 16:37 06:03 POC Glucometer 247 360 231 04/12/19 04/13/19 04/13/19 16:34 06:26 16:46 POC Glucometer 252 248 253 04/14/19 04/14/19 04/15/19 06:38 16:43 06:16 POC Glucometer 210 326 220 04/16/19 06:25 POC Glucometer 247 - Treatment Discharge Condition: Discharge condition good Hospital Course: Rehabilitated safely and responded well Aftercare referral accepted - Medication Discharge Medications: Ambulatory Orders Amlodipine Besylate [Norvasc -] 5 mg PO DAILY #30 tablet MDD 1 03/11/19 Lisinopril [Prinivil] 5 mg PO DAILY #30 tablet 03/11/19 Metformin HCl [Glucophage] 500 mg PO DAILY #30 tablet 03/11/19 - Medication-Assisted Treatment (MAT) Medication-Assisted Treatment (MAT): No - Discharge Instructions Diet, activity, other medical instructions: Diet:Low salt and No concentrated sugar diet Activity: oob, ad nikky Other medical instructions:Follow up with CD after at [facility] [place] as recommended Follow up with medical care/appointment after calling [facility] for PMD assignment. 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
[2019-04-16] MEDS: LISINOPRIL 5 MG TABLET (FP) PO SCH (10:25)
[2019-04-16] MEDS: amLODIPine BESYLATE 5 MG TABLET (FP) PO SCH (10:25)
[2019-04-16] MEDS: PRENATAL VITAMINS W/ FOLIC ACID TABLET (FP) PO SCH (10:25)
[2019-04-16] MEDS: NICOTINE 14 MG/24 HOURS TOPICAL PATCH TD SCH (10:26)
== END 2019-04-16 11:00 | disposition home or self-care (01) | DRG 772 ==
LOC: YASAS 13:00 → Y5N 19:15
PROVIDERS: ADMIT Neuromusculoskeletal Medicine & OMM; ATTEND Neuromusculoskeletal Medicine & OMM
PROC: HZ42ZZZ Group Counseling for Substance Abuse Treatment, Cognitive-Behavioral (ICD-10-PCS; principal; 2019-04-06)
DX: F10.20 Alcohol dependence, uncomplicated (principal); F14.20 Cocaine dependence, uncomplicated; F17.210 Nicotine dependence, cigarettes, uncomplicated; Z79.84 Long term (current) use of oral hypoglycemic drugs; Z86.73 Personal history of transient ischemic attack (TIA), and cerebral infarction without residual deficits; Z59.0 Homelessness
CPT/HCPCS: 82962

== ENCOUNTER 2019-05-06 20:47 | Inpatient (IN) | payer OTHER ==
[2019-05-06 21:26] VITALS: BMI 29.5
--- NOTE | 2019-05-06 22:12 | HP ---
CIWA Score Nausea/Vomitin-No Nausea/No Vomiting Muscle Tremors: None Anxiety: 1-Mildly Anxious Agitation: 1-Slight > Activity Paroxysmal Sweats: No Perspiration Orientation: 2-Disoriented Date<2 days Tacttile Disturbances: 0-None Auditory Disturbances: 0-None Visual Disturbances: 0-None Headache: 2-Mild CIWA-Ar Total Score: 6 - Admission Criteria OASAS Guidelines: Admission for Medically Managed Detox: Requires at least one of the followin. CIWA greater than 12 2. Seizures within the past 24 hours 3. Delirium tremens within the past 24 hours 4. Hallucinations within the past 24 hours 5. Acute intervention needed for co occurring medical disorder 6. Acute intervention needed for co occurring psychiatric disorder 7. Severe withdrawal that cannot be handled at a lower level of care (continued vomiting, continued diarrhea, abnormal vital signs) requiring intravenous medication and/or fluids 8. Patient presents the following: Acute intervention needed for co-occurring med or psych disorder Admission Criteria Met: Admission criteria met Admitting History and Physical - Smoking History Smoking history: Current every day smoker Have you smoked in the past 12 months: Yes Aproximately how many cigarettes per day: 20 - Alcohol/Substance Use Hx Alcohol Use: Yes Admission ROS [facility] Chief Complaint: C/O WORSENING WITHDRAWAL SX'S Allergies/Adverse Reactions: Allergies Allergy/AdvReac Type Severity Reaction Status Date / Time No Known Allergies Allergy Verified 04/07/19 12:44 History of Present Illness: HERE FOR ALCOHOL DETOX. CLIENT IS SELF REFERRED. KNOWN TO THE PROGRAM. WAS HERE LAST MONTH FOR REHAB. PRESENTS WITH C/O WORSENING WITHDRAWAL SX'S. LAST ALCOHOL INTAKE LAST NIGHT. HE REPORTS DRINKING ABOUT 3 PINTS QOD. HE HAS HX/O DM, HTN. DENIES HX/O SEZIURES BUT DOES REPORT BLACK OUTS, . DENIES SI/HI/AVH. DENIES ANY SIGNFICANT PERIOD OF CLEAN TIME EXCEPT WHEN INPATIENT. HOMELESS, UNEMPLOYED, DENIES LEGALS Exam Limitations: Physical Impairment (SLURRED SPEECH R/T OLD CVA) - Ebola screening Have you traveled outside of the country in the last 21 days: No (N) Have you had contact with anyone from an Ebola affected area: No Do you have a fever: No - Review of Systems Constitutional: Changes in sleep EENT: reports: Dental Problems (NO TEETH) Respiratory: reports: No Symptoms reported Cardiac: reports: No Symptoms Reported GI: reports: No Symptoms Reported, Poor Fluid Intake : reports: No Symptoms Reported Musculoskeletal: reports: No Symptoms Reported Integumentary: reports: No Symptoms Reported Neuro: reports: Headache, Other (BLACK OUTS) Endocrine: reports: Other (HX/O DM) Hematology: reports: No Symptoms Reported Psychiatric: reports: Anxious Other Systems: Reviewed and Negative Patient History - Patient Medical History Hx Anemia: No Hx Asthma: No Hx Chronic Obstructive Pulmonary Disease (COPD): No Hx Cancer: No Hx Cardiac Disorders: No Hx Congestive Heart Failure: No Hx Hypertension: Yes Hx Hypercholesterolemia: No Hx Pacemaker: No HX Cerebrovascular Accident: Yes (STROKE 2003--[place], [place]) Hx Seizures: No Hx Dementia: No Hx Diabetes: Yes (Type II) Hx Gastrointestinal Disorders: No Hx Liver Disease: No Hx Genitourinary Disorders: No Hx Sexually Transmitted Disorders: No Hx Renal Disease (ESRD): No Hx Thyroid Disease: No Hx Human Immunodeficiency Virus (HIV): No Hx Hepatitis C: No Hx Depression: No Hx Suicide Attempt: No Hx Bipolar Disorder: No Hx Schizophrenia: No Other Medical History: DENIES - Patient Surgical History Past Surgical History: Yes Hx Neurologic Surgery: No Hx Cataract Extraction: No Hx Cardiac Surgery: No Hx Lung Surgery: No Hx Breast Surgery: No Hx Breast Biopsy: No Hx Abdominal Surgery: No Hx Appendectomy: No Hx Cholecystectomy: No Hx Genitourinary Surgery: No Hx Section: No Hx Orthopedic Surgery: Yes (s/p surgery for fx right knee and right leg in 1998) Hx Hysterectomy: No Anesthesia Reaction: No - PPD History Previous Implant?: Yes Documented Results: Positive w/o proof Implanted On Prior [facility] Admission?: No Date: 05/15/18 Results: NEG CXR PPD to be Administered?: No - Smoking Cessation Smoking history: Current every day smoker Have you smoked in the past 12 months: Yes Aproximately how many cigarettes per day: 20 Cigars Per Day: 0 Hx Chewing Tobacco Use: No Initiated information on smoking cessation: Yes 'Breaking Loose' booklet given: 05/06/19 - Substance & Tx. History Hx Alcohol Use: Yes Hx Substance Use: Yes Substance Use Type: Alcohol, Cocaine (CRACK) Hx Substance Use Treatment: Yes ([facility]) - Substances abused Alcohol Substance route: Oral Frequency: 3-6 times per week Amount used: 2 pints vodka Age of first use: 16 Date of last use: 05/06/19 Crack Substance route: Smoking Frequency: Daily Amount used: 5 BAGS Age of first use: 52 Date of last use: 05/05/19 Cocaine Other (specify): sniff Amount used: $50 Age of first use: 30 Date of last use: 05/05/19 Admission Physical Exam [facility] - Vital Signs Vital Signs: Vital Signs - 24 hr 05/06/19 21:20 Temperature 96.7 F L Pulse Rate 89 Respiratory 19 Rate Blood Pressure 124/84 - Physical General Appearance: Yes: Tremorous (FELT), Anxious HEENTM: Yes: EOMI, Normocephalic, Pharynx Normal, Other (EDENTULOUS LEFT PUPIL PINPOINT NON RECTIVE TO LIGHT- REPORTS HX/O HEAD TRAUMA. OLD SCAR NOTED LEFT LID ) Respiratory: Yes: Chest Non-Tender, Lungs Clear, Normal Breath Sounds, No Respiratory Distress, No Accessory Muscle Use Neck: Yes: No masses,lesions,Nodules, Supple, Trachea in good position Breast: Yes: Breasts Symetrical, No Discharge Cardiology: Yes: Regular Rhythm, Regular Rate, S1, S2 Abdominal: Yes: Normal Bowel Sounds, Non Tender, Soft, Protuberent Genitourinary: Yes: Within Normal Limits Back: Yes: Normal Inspection Musculoskeletal: Yes: Gait Steady Extremities: Yes: Normal Range of Motion, Non-Tender, Tremors (FELT) Neurological: Yes: Alert, Motor Strength 5/5 Integumentary: Yes: Dry, Cold Lymphatic: Yes: Within Normal Limits - Diagnostic (1) Alcohol dependence with uncomplicated withdrawal Current Visit: Yes Status: Acute (2) Cocaine dependence Current Visit: Yes Status: Acute Comment: . (3) DM2 (diabetes mellitus, type 2) Current Visit: Yes Status: Chronic (4) Essential hypertension Current Visit: Yes Status: Chronic (5) History of positive PPD Current Visit: Yes Status: Chronic (6) Nicotine dependence Current Visit: Yes Status: Chronic Qualifiers: Nicotine product type: cigarettes Substance use status: uncomplicated Qualified Code(s): F17.210 - Nicotine dependence, cigarettes, uncomplicated Comment: . (7) Old cerebrovascular accident (CVA) without late effect Current Visit: Yes Status: Chronic Cleared for Admission [facility] - Detox or Rehab [facility] Level of Care: Medically Managed Detox Regimen/Protocol: Librium Claeared for Rehab Admission: No Breathalyzer - Breathalyzer Breathalyzer: 0 Urine Drug Screen - Test Device Lot number: [id number] Expiration date: 12/26/20 - Control Is test valid?: Yes - Results Drug screen NEGATIVE: No Urine drug screen results: ROSALIO-Cocaine, BZO-Benzodiazepines Inpatient Rehab Admission - Rehab Decision to Admit Inpatient rehab admission?: No
[2019-05-06] MEDS ORDERED: MENTHOL/PHENOL 1 EACH UD MM PRN (22:17)
[2019-05-06] MEDS ORDERED: DICYCLOMINE HCL 10 MG CAPSULE PO PRN (22:17)
[2019-05-06] MEDS ORDERED: MAGNESIUM CITRATE 300 ML BOTTLE PO PRN (22:17)
[2019-05-06] MEDS ORDERED: ACETAMINOPHEN 325 MG TABLET (FP) PO PRN ×2 (22:17)
[2019-05-06] MEDS ORDERED: NICOTINE POLACRILEX 2 MG GUM BUC PRN (22:17)
[2019-05-06] MEDS ORDERED: BISMUTH SUBSALICYLATE 524 MG/30 ML UD PO PRN (22:17)
[2019-05-06] MEDS ORDERED: MAG HYDROX/AL HYDROX/SIMETH 30 ML UNIT-DOSE CUP PO PRN (22:17)
[2019-05-06] MEDS ORDERED: IBUPROFEN 400 MG TABLET (FP) PO PRN (22:17)
[2019-05-06] MEDS ORDERED: chlordiazePOXIDE HCL 10 MG CAPSULE PO PRN (22:17)
[2019-05-06] MEDS ORDERED: hydrOXYzine PAMOATE 25 MG CAPSULE (FP) PO PRN (22:17)
[2019-05-06] MEDS ORDERED: ONDANSETRON *ODT* 4 MG TABLET SL PRN (22:17)
[2019-05-06] MEDS ORDERED: P-EPHED 60MG/TRIPROLIDI 2.5MG TABLET PO PRN (22:17)
[2019-05-06] MEDS: chlordiazePOXIDE HCL 25 MG CAPSULE PO SCH (23:05)
[2019-05-06] MEDS: MELATONIN 5 MG TABLETS PO PRN (23:06)
[2019-05-07] MEDS: chlordiazePOXIDE HCL 25 MG CAPSULE PO SCH ×3 (05:57→22:15)
[2019-05-07] MEDS: METHOCARBAMOL 500 MG TABLET PO PRN ×2 (05:58→17:16)
[2019-05-07] MEDS ORDERED: metFORMIN HCL 500 MG TABLET (FP) PO SCH (10:00)
[2019-05-07 10:16] LABS: HEMATOCRIT 45.8 % (35.4-49); HEMOGLOBIN 15.3 GM/dL (11.7-16.9); MCH 31.5 pg (25.7-33.7); MCHC 33.4 g/dl (32.0-35.9); MEAN CELL VOLUME 94.2 fl (80-96); MEAN PLT VOLUME 8.8 fl (7.5-11.1); PLATELET COUNT 313 K/MM3 (134-434); RBC 4.86 M/mm3 (4.00-5.60); RDW 13.3 % (11.9-15.9); WHITE BLOOD COUNT 5.3 K/mm3 (4.0-10.0)
[2019-05-07] MEDS: LISINOPRIL 5 MG TABLET (FP) PO SCH (10:22)
[2019-05-07] MEDS: PRENATAL VITAMINS W/ FOLIC ACID TABLET (FP) PO SCH (10:22)
[2019-05-07] MEDS: NICOTINE 21 MG/24 HOURS TOPICAL PATCH TD SCH (10:23)
[2019-05-07 10:29] LABS: ALBUMIN 3.3 g/dl (3.4-5.0); BILIRUBIN,TOTAL 0.6 mg/dL (0.2-1); BLOOD UREA NITROGEN 22.8 mg/dL (7-18); CALCIUM 8.7 mg/dL (8.5-10.1); CREATININE 1.1 mg/dL (0.55-1.3); POTASSIUM 4.1 mmol/L (3.5-5.1); TOT PROT 7.4 g/dl (6.4-8.2)
--- NOTE | 2019-05-07 15:18 | PN ---
S CIWA - CIWA Score Nausea/Vomitin-No Nausea/No Vomiting Muscle Tremors: None Anxiety: 3 Agitation: 3 Paroxysmal Sweats: No Perspiration Orientation: 2-Disoriented Date<2 days Tacttile Disturbances: 0-None Auditory Disturbances: 0-None Visual Disturbances: 0-None Headache: 0-None Present CIWA-Ar Total Score: 8 BHS Progress Note (SOAP) Subjective: Anxious, Interrupted Sleep. Objective: PATIENT A & O X 2 (UNCERTAIN ABOUT CURRENT DAY/ DATE). PATIENT OBSERVED AMBULATING ON DETOX UNIT UNASSISTED. IN NO ACUTE DISTRESS. 05/07/19 15:13 Vital Signs Temperature 96.5 F L 05/07/19 14:09 Pulse Rate 91 H 05/07/19 14:09 Respiratory Rate 18 05/07/19 14:09 Blood Pressure 134/93 05/07/19 14:09 O2 Sat by Pulse Oximetry (%) Laboratory Tests 05/07/19 05/07/19 05/07/19 05:56 08:10 08:10 WBC 5.3 RBC 4.86 Hgb 15.3 Hct 45.8 MCV 94.2 MCH 31.5 MCHC 33.4 RDW 13.3 Plt Count 313 MPV 8.8 Sodium 136 Potassium 4.1 Chloride 101 Carbon Dioxide 28 Anion Gap 7 L BUN 22.8 H Creatinine 1.1 Est GFR (CKD-EPI)AfAm 82.37 Est GFR (CKD-EPI)NonAf 71.07 POC Glucometer 316 Random Glucose 290 H Calcium 8.7 Total Bilirubin 0.6 AST 37 ALT 70 H Alkaline Phosphatase 144 H Total Protein 7.4 Albumin 3.3 L LABS NOTED. PATIENT HAS HAD ELEVATED AST AND ALT LEVELS ON PREVIOUS ADMISSIONS. 05/07/19 15:31 Assessment: 05/07/19 15:32 WITHDRAWAL SYMPTOMS. HYPERGLYCEMIA. ELEVATED AST LEVEL. ELEVATED ALT LEVEL. Plan: CONTINUE DETOX. INCREASE DAILY PO WATER INTAKE. INCREASE DAILY DOSE OF METFORMIN TO 500 MG PO BID. INCREASE FREQUENCY OF BGM'S TO BIDAC.
[2019-05-07] MEDS: metFORMIN HCL 500 MG TABLET (FP) PO SCH (17:14)
[2019-05-07] MEDS: THIAMINE HCL 100 MG TABLET (FP) PO SCH (22:15)
[2019-05-07] MEDS: MELATONIN 5 MG TABLETS PO PRN (22:16)
[2019-05-08] MEDS: guaiFENesin 200 MG/10 ML 10 ML UNIT-DOSE CUPS PO PRN (05:43)
[2019-05-08] MEDS: chlordiazePOXIDE 5 MG CAPSULE PO SCH ×3 (05:43→22:28)
[2019-05-08] MEDS: metFORMIN HCL 500 MG TABLET (FP) PO SCH ×2 (06:14→17:15)
[2019-05-08] MEDS: MAGNESIUM HYDROX 2400MG/30ML ORAL SUSPENSION 30 ML CUP PO PRN (07:05)
[2019-05-08] MEDS: NICOTINE 21 MG/24 HOURS TOPICAL PATCH TD SCH (10:16)
[2019-05-08] MEDS: PRENATAL VITAMINS W/ FOLIC ACID TABLET (FP) PO SCH (10:16)
[2019-05-08] MEDS: LISINOPRIL 5 MG TABLET (FP) PO SCH (10:16)
--- NOTE | 2019-05-08 15:40 | PN ---
S CIWA - CIWA Score Nausea/Vomitin-No Nausea/No Vomiting Muscle Tremors: 2 Anxiety: 3 Agitation: 1-Slight > Activity Paroxysmal Sweats: 2 Orientation: 0-Oriented Tacttile Disturbances: 0-None Auditory Disturbances: 0-None Visual Disturbances: 0-None Headache: 0-None Present CIWA-Ar Total Score: 8 BHS Progress Note (SOAP) Subjective: Anxious, Interrupted Sleep, Sweating. Objective: PATIENT A & O X 3, OBSERVED AMBULATING ON DETOX UNIT UNASSISTED. IN NO ACUTE DISTRESS. 05/08/19 15:41 Vital Signs Temperature 96.1 F L 05/08/19 13:43 Pulse Rate 80 05/08/19 13:43 Respiratory Rate 18 05/08/19 13:43 Blood Pressure 149/91 05/08/19 13:43 O2 Sat by Pulse Oximetry (%) Laboratory Tests 05/07/19 05/07/19 05/07/19 05:56 08:10 08:10 WBC 5.3 RBC 4.86 Hgb 15.3 Hct 45.8 MCV 94.2 MCH 31.5 MCHC 33.4 RDW 13.3 Plt Count 313 MPV 8.8 Sodium 136 Potassium 4.1 Chloride 101 Carbon Dioxide 28 Anion Gap 7 L BUN 22.8 H Creatinine 1.1 Est GFR (CKD-EPI)AfAm 82.37 Est GFR (CKD-EPI)NonAf 71.07 POC Glucometer 316 Random Glucose 290 H Calcium 8.7 Total Bilirubin 0.6 AST 37 ALT 70 H Alkaline Phosphatase 144 H Total Protein 7.4 Albumin 3.3 L 05/07/19 05/08/19 16:37 05:45 WBC RBC Hgb Hct MCV MCH MCHC RDW Plt Count MPV Sodium Potassium Chloride Carbon Dioxide Anion Gap BUN Creatinine Est GFR (CKD-EPI)AfAm Est GFR (CKD-EPI)NonAf POC Glucometer 337 408 Random Glucose Calcium Total Bilirubin AST ALT Alkaline Phosphatase Total Protein Albumin LABS NOTED. Assessment: 05/08/19 15:43 WITHDRAWAL SYMPTOMS. HYPERGLYCEMIA. ELEVATED AST LEVEL. ELEVATED ALT LEVEL. Plan: CONTINUE DETOX. INCREASE DAILY PO WATER INTAKE.
[2019-05-08] MEDS ORDERED: LISINOPRIL 5 MG TABLET (FP) PO ONE (15:44)
[2019-05-08] MEDS: METHOCARBAMOL 500 MG TABLET PO PRN (20:23)
[2019-05-08] MEDS: THIAMINE HCL 100 MG TABLET (FP) PO SCH (22:28)
[2019-05-08] MEDS: MELATONIN 5 MG TABLETS PO PRN (22:30)
[2019-05-08] MEDS: INSULIN SLIDING SCALE (NOVOLOG) 1 VIAL SQ SCH (22:30)
[2019-05-09] MEDS ORDERED: chlordiazePOXIDE HCL 10 MG CAPSULE PO PRN
[2019-05-09] MEDS: MAGNESIUM HYDROX 2400MG/30ML ORAL SUSPENSION 30 ML CUP PO PRN (05:45)
[2019-05-09] MEDS: chlordiazePOXIDE HCL 10 MG CAPSULE PO SCH ×3 (05:45→21:57)
[2019-05-09] MEDS: guaiFENesin 200 MG/10 ML 10 ML UNIT-DOSE CUPS PO PRN (06:14)
[2019-05-09] MEDS: metFORMIN HCL 500 MG TABLET (FP) PO SCH ×2 (07:38→16:46)
[2019-05-09] MEDS: INSULIN SLIDING SCALE (NOVOLOG) 1 VIAL SQ SCH ×4 (07:38→21:59)
[2019-05-09] MEDS ORDERED: LISINOPRIL 10 MG TABLET (FP) PO SCH (10:00)
[2019-05-09] MEDS: PRENATAL VITAMINS W/ FOLIC ACID TABLET (FP) PO SCH (10:03)
[2019-05-09] MEDS: NICOTINE 21 MG/24 HOURS TOPICAL PATCH TD SCH (10:04)
--- NOTE | 2019-05-09 10:12 | PN ---
S CIWA - CIWA Score Nausea/Vomitin-No Nausea/No Vomiting Muscle Tremors: None Anxiety: 2 Agitation: 0-Normal Activity Paroxysmal Sweats: 2 Orientation: 0-Oriented Tacttile Disturbances: 0-None Auditory Disturbances: 0-None Visual Disturbances: 0-None Headache: 1-Very Mild CIWA-Ar Total Score: 5 BHS Progress Note (SOAP) Subjective: c/o sweats, anxiety, and headache. Objective: 05/09/19 10:10 Vital Signs 05/09/19 05/09/19 05/09/19 03:30 06:34 09:27 Temperature 97.1 F L 98.5 F Pulse Rate 88 87 Respiratory 18 16 18 Rate Blood Pressure 153/93 154/100 Lab Results WBC 5.3 K/mm3 (4.0-10.0) 05/07/19 08:10 RBC 4.86 M/mm3 (4.00-5.60) 05/07/19 08:10 Hgb 15.3 GM/dL (11.7-16.9) 05/07/19 08:10 Hct 45.8 % (35.4-49) 05/07/19 08:10 MCV 94.2 fl (80-96) 05/07/19 08:10 MCHC 33.4 g/dl (32.0-35.9) 05/07/19 08:10 RDW 13.3 % (11.9-15.9) 05/07/19 08:10 Plt Count 313 K/MM3 (134-434) 05/07/19 08:10 Sodium 136 mmol/L (136-145) 05/07/19 08:10 Potassium 4.1 mmol/L (3.5-5.1) 05/07/19 08:10 Chloride 101 mmol/L (98-107) 05/07/19 08:10 Carbon Dioxide 28 mmol/L (21-32) 05/07/19 08:10 Anion Gap 7 MMOL/L (8-16) L 05/07/19 08:10 BUN 22.8 mg/dL (7-18) H 05/07/19 08:10 Creatinine 1.1 mg/dL (0.55-1.3) 05/07/19 08:10 Random Glucose 290 mg/dL (74-106) H 05/07/19 08:10 Calcium 8.7 mg/dL (8.5-10.1) 05/07/19 08:10 Labs noted. Assessment: 05/09/19 10:10 AOX3, in no acute respiratory distress. Full ROM, ambulating in the unit. Withdrawal symptoms. For d/c tomorrow. Plan: continue detox. D/C in AM.
[2019-05-09] MEDS: THIAMINE HCL 100 MG TABLET (FP) PO SCH (21:57)
[2019-05-09] MEDS: MELATONIN 5 MG TABLETS PO PRN (21:57)
[2019-05-10] MEDS ORDERED: chlordiazePOXIDE HCL 10 MG CAPSULE PO ONE (05:00)
[2019-05-10 06:14] VITALS: BP 153/94; PULSE 76; TEMP 97.5
[2019-05-10] MEDS: metFORMIN HCL 500 MG TABLET (FP) PO SCH (06:43)
[2019-05-10] MEDS: INSULIN SLIDING SCALE (NOVOLOG) 1 VIAL SQ SCH (07:32)
--- NOTE | 2019-05-10 12:17 | DS ---
[facility] Detox Discharge Summary Admission Date: 05/06/19 Discharge Date: 05/10/19 - History Present History: Alcohol Dependence, Cocaine Dependence Additional Comments: Pt is medically cleared and discharge today. Pt completed his detox protocol. Pt is encouraged to follow-up with CD program and also to follow-up with his pmd. Pt verbalized understanding of the information given. Pt is alert and oriented x3 and in no respiratory distress. Pertinent Past History: H/O DM, alcohol, and cocaine use disorder. - Physical Exam Results Vital Signs: Vital Signs Temperature 97.5 F L 05/10/19 06:14 Pulse Rate 76 05/10/19 06:14 Respiratory Rate 18 05/10/19 06:14 Blood Pressure 153/94 05/10/19 06:14 O2 Sat by Pulse Oximetry (%) Vital Signs 05/10/19 06:14 Temperature 97.5 F L Pulse Rate 76 Respiratory 18 Rate Blood Pressure 153/94 Lab Results WBC 5.3 K/mm3 (4.0-10.0) 05/07/19 08:10 RBC 4.86 M/mm3 (4.00-5.60) 05/07/19 08:10 Hgb 15.3 GM/dL (11.7-16.9) 05/07/19 08:10 Hct 45.8 % (35.4-49) 05/07/19 08:10 MCV 94.2 fl (80-96) 05/07/19 08:10 MCHC 33.4 g/dl (32.0-35.9) 05/07/19 08:10 RDW 13.3 % (11.9-15.9) 05/07/19 08:10 Plt Count 313 K/MM3 (134-434) 05/07/19 08:10 Sodium 136 mmol/L (136-145) 05/07/19 08:10 Potassium 4.1 mmol/L (3.5-5.1) 05/07/19 08:10 Chloride 101 mmol/L (98-107) 05/07/19 08:10 Carbon Dioxide 28 mmol/L (21-32) 05/07/19 08:10 Anion Gap 7 MMOL/L (8-16) L 05/07/19 08:10 BUN 22.8 mg/dL (7-18) H 05/07/19 08:10 Creatinine 1.1 mg/dL (0.55-1.3) 05/07/19 08:10 Random Glucose 290 mg/dL (74-106) H 05/07/19 08:10 Calcium 8.7 mg/dL (8.5-10.1) 05/07/19 08:10 Labs noted. Pertinent Admission Physical Exam Findings: withdrawal symptoms. - Treatment Hospital Course: Detox Protocol Followed, Detoxed Safely, Responded well, Discharged Condition Good - Medication Discharge Medications: Ambulatory Orders Lisinopril [Prinivil] 5 mg PO DAILY #30 tablet 03/11/19 Metformin HCl [Glucophage] 500 mg PO DAILY #30 tablet 03/11/19 - Diagnosis (1) Alcohol dependence with uncomplicated withdrawal Status: Acute (2) Cocaine dependence Status: Acute (3) Elevated alanine aminotransferase (ALT) level Status: Acute (4) Elevated aspartate aminotransferase level Status: Acute (5) DM2 (diabetes mellitus, type 2) Status: Chronic (6) Essential hypertension Status: Chronic (7) Nicotine dependence Status: Chronic Qualifiers: Nicotine product type: cigarettes Substance use status: uncomplicated Qualified Code(s): F17.210 - Nicotine dependence, cigarettes, uncomplicated (8) Old cerebrovascular accident (CVA) without late effect Status: Chronic - AMA Did Patient Leave Against Medical Advice: No
== END 2019-05-10 11:10 | disposition home or self-care (01) | DRG 774 ==
LOC: YASAS 20:47 → Y3N 22:25
PROVIDERS: ADMIT Allergy & Immunology; ATTEND Allergy & Immunology
PROC: HZ2ZZZZ Detoxification Services for Substance Abuse Treatment (ICD-10-PCS; principal; 2019-05-06)
DX: F10.230 Alcohol dependence with withdrawal, uncomplicated (principal); F14.20 Cocaine dependence, uncomplicated; F17.210 Nicotine dependence, cigarettes, uncomplicated; I10 Essential (primary) hypertension; E11.9 Type 2 diabetes mellitus without complications; Z79.84 Long term (current) use of oral hypoglycemic drugs; R94.5 Abnormal results of liver function studies; Z86.73 Personal history of transient ischemic attack (TIA), and cerebral infarction without residual deficits; Z59.0 Homelessness
CPT/HCPCS: 36415; 80053; 82962; 85027

== ENCOUNTER 2019-05-29 10:17 | Inpatient (IN) | payer OTHER ==
[2019-05-29 10:44] VITALS: BMI 28.8
--- NOTE | 2019-05-29 11:28 | HP ---
CIWA Score Nausea/Vomitin Muscle Tremors: 3 Anxiety: 3 Agitation: 3 Paroxysmal Sweats: No Perspiration Orientation: 0-Oriented Tacttile Disturbances: 1-Very Mild Itch/Numbness Auditory Disturbances: 0-None Visual Disturbances: 0-None Headache: 2-Mild CIWA-Ar Total Score: 14 - Admission Criteria OASAS Guidelines: Admission for Medically Managed Detox: Requires at least one of the followin. CIWA greater than 12 2. Seizures within the past 24 hours 3. Delirium tremens within the past 24 hours 4. Hallucinations within the past 24 hours 5. Acute intervention needed for co occurring medical disorder 6. Acute intervention needed for co occurring psychiatric disorder 7. Severe withdrawal that cannot be handled at a lower level of care (continued vomiting, continued diarrhea, abnormal vital signs) requiring intravenous medication and/or fluids 8. Admitting History and Physical - Smoking History Smoking history: Current every day smoker Have you smoked in the past 12 months: Yes Aproximately how many cigarettes per day: 20 - Alcohol/Substance Use Hx Alcohol Use: Yes Admission ROS BHS - HPI Chief Complaint: i need help to stop drinking alcohol,cocaine Allergies/Adverse Reactions: Allergies Allergy/AdvReac Type Severity Reaction Status Date / Time No Known Allergies Allergy Verified 05/29/19 10:40 History of Present Illness: this 64 years old male with alcohol and cocaine dependence,seeking detox, withdrawal symptom, multiple admissions in detox but keep relapsing last detox [facility] 05/06/19 to 05/10/19 denied seizure syncope alcohol related nicotine dependence 1 pack/day no significant period of sobriety homeless,unemployed old cva type s dm Exam Limitations: No Limitations - Ebola screening Have you traveled outside of the country in the last 21 days: No Have you had contact with anyone from an Ebola affected area: No Do you have a fever: No - Review of Systems Constitutional: Night Sweats EENT: reports: Nose Congestion Respiratory: reports: No Symptoms reported Cardiac: reports: No Symptoms Reported GI: reports: Diarrhea, Nausea, Poor Appetite : reports: No Symptoms Reported Musculoskeletal: reports: Back Pain, Muscle Pain Neuro: reports: Headache, Tremors Endocrine: reports: No Symptoms Reported Hematology: reports: No Symptoms Reported Psychiatric: reports: No Sypmtoms Reported, Judgement Intact, Mood/Affect Appropiate, Orientated x3 Other Systems: Reviewed and Negative Patient History - Patient Medical History Hx Anemia: No Hx Asthma: No Hx Chronic Obstructive Pulmonary Disease (COPD): No Hx Cancer: No Hx Cardiac Disorders: No Hx Congestive Heart Failure: No Hx Hypertension: Yes Hx Hypercholesterolemia: No Hx Pacemaker: No HX Cerebrovascular Accident: Yes (STROKE 2003--[place], [place]) Hx Seizures: No Hx Dementia: No Hx Diabetes: Yes (Type II) Hx Gastrointestinal Disorders: No Hx Liver Disease: No Hx Genitourinary Disorders: No Hx Sexually Transmitted Disorders: No Hx Renal Disease (ESRD): No Hx Thyroid Disease: No Hx Human Immunodeficiency Virus (HIV): No Hx Hepatitis C: No Hx Depression: No Hx Suicide Attempt: No Hx Bipolar Disorder: No Hx Schizophrenia: No Other Medical History: no suicidal,no homicidal - Patient Surgical History Past Surgical History: Yes Hx Neurologic Surgery: No Hx Cataract Extraction: No Hx Cardiac Surgery: No Hx Lung Surgery: No Hx Breast Surgery: No Hx Breast Biopsy: No Hx Abdominal Surgery: No Hx Appendectomy: No Hx Cholecystectomy: No Hx Genitourinary Surgery: No Hx Section: No Hx Orthopedic Surgery: Yes (s/p surgery for fx right knee and right leg in 1998) Hx Hysterectomy: No Anesthesia Reaction: No - PPD History Previous Implant?: Yes Date: 05/15/18 Results: NEG CXR PPD to be Administered?: No - Smoking Cessation Smoking history: Current every day smoker Have you smoked in the past 12 months: Yes Aproximately how many cigarettes per day: 20 Cigars Per Day: 0 Hx Chewing Tobacco Use: No Initiated information on smoking cessation: Yes 'Breaking Loose' booklet given: 05/29/19 - Substance & Tx. History Hx Alcohol Use: Yes Hx Substance Use: Yes Substance Use Type: Alcohol, Cocaine Hx Substance Use Treatment: Yes (05/06/19 to 05/10/19) - Substances abused Alcohol Substance route: Oral Frequency: Daily Amount used: 4 pints vodka Age of first use: 16 Date of last use: 05/28/19 Crack Substance route: Smoking Frequency: Daily Amount used: 9 BAGS Age of first use: 52 Date of last use: 05/28/19 Cocaine Other (specify): sniff Substance route: Inhalation Amount used: 9 bags Age of first use: 30 Date of last use: 05/28/19 Admission Physical Exam BHS - Vital Signs Vital Signs: Vital Signs - 24 hr 05/29/19 05/29/19 10:39 11:09 Temperature 98.1 F 98.1 F Pulse Rate 95 H 95 H Respiratory 20 20 Rate Blood Pressure 171/111 H 171/111 H - Physical General Appearance: Yes: Moderate Distress, Tremorous, Irritable, Anxious HEENTM: Yes: Normal ENT Inspection, Pharynx Normal Respiratory: Yes: Lungs Clear, Normal Breath Sounds, No Respiratory Distress Neck: Yes: Supple, Trachea in good position Breast: Yes: Within Normal Limits Cardiology: Yes: Within Normal Limits, Regular Rhythm, Regular Rate, S1, S2 Abdominal: Yes: Normal Bowel Sounds, Non Tender, Soft Genitourinary: Yes: Within Normal Limits Back: Yes: Muscle Spasm Musculoskeletal: Yes: Back pain, Muscle Pain Extremities: Yes: Normal Range of Motion, Tremors, Other (scar of right knee right ankle) Neurological: Yes: set up operator tool II-XII NML intact, Alert, Motor Strength 5/5 Integumentary: Yes: Dry Lymphatic: Yes: Within Normal Limits - Diagnostic (1) Alcohol dependence with uncomplicated withdrawal Current Visit: No Status: Acute (2) Cocaine dependence Current Visit: No Status: Acute Comment: . (3) DM2 (diabetes mellitus, type 2) Current Visit: No Status: Chronic (4) Essential hypertension Current Visit: No Status: Chronic (5) History of positive PPD Current Visit: No Status: Chronic (6) Nicotine dependence Current Visit: No Status: Chronic Qualifiers: Nicotine product type: cigarettes Substance use status: uncomplicated Qualified Code(s): F17.210 - Nicotine dependence, cigarettes, uncomplicated Comment: . (7) Old cerebrovascular accident (CVA) without late effect Current Visit: No Status: Chronic Cleared for Admission [facility] - Detox or Rehab [facility] Level of Care: Medically Managed Detox Regimen/Protocol: Librium Breathalyzer - Breathalyzer Breathalyzer: 0 Urine Drug Screen - Test Device Lot number: [id number] Expiration date: 01/25/21 - Control Is test valid?: Yes - Results Drug screen NEGATIVE: No Urine drug screen results: ROSALIO-Cocaine, MET-Methamphetamine, BZO-Benzodiazepines Inpatient Rehab Admission - Rehab Decision to Admit Inpatient rehab admission?: No
[2019-05-29] MEDS ORDERED: IBUPROFEN 400 MG TABLET (FP) PO PRN (11:37)
[2019-05-29] MEDS ORDERED: MAGNESIUM HYDROX 2400MG/30ML ORAL SUSPENSION 30 ML CUP PO PRN (11:37)
[2019-05-29] MEDS ORDERED: BISMUTH SUBSALICYLATE 262 MG/15 ML BTL PO PRN (11:37)
[2019-05-29] MEDS ORDERED: MELATONIN 5 MG TABLETS PO PRN (11:37)
[2019-05-29] MEDS ORDERED: hydrOXYzine PAMOATE 25 MG CAPSULE (FP) PO PRN (11:37)
[2019-05-29] MEDS ORDERED: NICOTINE POLACRILEX 2 MG GUM BUC PRN (11:37)
[2019-05-29] MEDS ORDERED: METHOCARBAMOL 500 MG TABLET PO PRN (11:37)
[2019-05-29] MEDS ORDERED: MENTHOL/PHENOL 1 EACH UD MM PRN (11:37)
[2019-05-29] MEDS ORDERED: ACETAMINOPHEN 325 MG TABLET (FP) PO PRN ×2 (11:37)
[2019-05-29] MEDS ORDERED: chlordiazePOXIDE HCL 25 MG CAPSULE PO PRN (11:37)
[2019-05-29] MEDS ORDERED: MAGNESIUM CITRATE 300 ML BOTTLE PO PRN (11:37)
[2019-05-29] MEDS ORDERED: MAG HYDROX/AL HYDROX/SIMETH 30 ML UNIT-DOSE CUP PO PRN (11:37)
[2019-05-29] MEDS: LISINOPRIL 5 MG TABLET (FP) PO SCH (12:37)
[2019-05-29] MEDS ORDERED: metFORMIN HCL 500 MG TABLET (FP) PO ONE (14:08)
[2019-05-29] MEDS: chlordiazePOXIDE HCL 25 MG CAPSULE PO SCH ×2 (16:42→22:02)
[2019-05-29 16:58] LABS: ALBUMIN 3.3 g/dl (3.4-5.0); BILIRUBIN,TOTAL 0.9 mg/dL (0.2-1); BLOOD UREA NITROGEN 16.7 mg/dL (7-18); CALCIUM 8.4 mg/dL (8.5-10.1); CREATININE 1.3 mg/dL (0.55-1.3); TOT PROT 7.5 g/dl (6.4-8.2)
[2019-05-29 17:28] LABS: HEMATOCRIT 41.2 % (35.4-49); HEMOGLOBIN 14.1 GM/dL (11.7-16.9); MCHC 34.3 g/dl (32.0-35.9); MEAN CELL VOLUME 93.1 fl (80-96); MEAN PLT VOLUME 8.2 fl (7.5-11.1); PLATELET COUNT 335 K/MM3 (134-434); RBC 4.42 M/mm3 (4.00-5.60); RDW 14.5 % (11.9-15.9); WHITE BLOOD COUNT 5.6 K/mm3 (4.0-10.0)
--- NOTE | 2019-05-29 17:59 | PN ---
[facility] Progress Note Note: Called [facility] ([phone]) and patient is prescribed, at this location: Amlodipine 5 mg PO daily in addition to meds in clinical data. No hx insulin from this [facility] location. Will increase BGM and add coverage.
[2019-05-29] MEDS ORDERED: cloNIDine HCL 0.1 MG TABLET PO ONE (18:15)
[2019-05-29] MEDS: INSULIN SLIDING SCALE (NOVOLOG) 1 VIAL SQ SCH (21:00)
[2019-05-29] MEDS: THIAMINE HCL 100 MG TABLET (FP) PO SCH (21:01)
[2019-05-30] MEDS: chlordiazePOXIDE HCL 25 MG CAPSULE PO SCH ×4 (05:18→22:14)
[2019-05-30] MEDS: INSULIN SLIDING SCALE (NOVOLOG) 1 VIAL SQ SCH ×4 (07:24→22:15)
[2019-05-30] MEDS: metFORMIN HCL 500 MG TABLET (FP) PO SCH (07:26)
[2019-05-30] MEDS: PRENATAL VITAMINS W/ FOLIC ACID TABLET (FP) PO SCH (10:14)
[2019-05-30] MEDS: amLODIPine BESYLATE 5 MG TABLET (FP) PO SCH (10:14)
[2019-05-30] MEDS: LISINOPRIL 5 MG TABLET (FP) PO SCH (10:14)
[2019-05-30] MEDS: NICOTINE 21 MG/24 HOURS TOPICAL PATCH TD SCH (10:15)
--- NOTE | 2019-05-30 12:12 | PN ---
[facility] CIWA - CIWA Score Nausea/Vomitin-No Nausea/No Vomiting Muscle Tremors: 3 Anxiety: 2 Agitation: 3 Paroxysmal Sweats: 3 Orientation: 0-Oriented Tacttile Disturbances: 0-None Auditory Disturbances: 0-None Visual Disturbances: 0-None Headache: 0-None Present CIWA-Ar Total Score: 11 BHS Progress Note (SOAP) Subjective: sweats agitation interrupted sleep body aches Objective: 05/30/19 12:11 Vital Signs Temperature 98.0 F 05/30/19 09:19 Pulse Rate 77 05/30/19 09:19 Respiratory Rate 18 05/30/19 09:19 Blood Pressure 130/86 05/30/19 09:19 O2 Sat by Pulse Oximetry (%) Laboratory Tests 05/29/19 05/29/19 05/29/19 11:35 11:35 11:35 WBC 5.6 RBC 4.42 Hgb 14.1 Hct 41.2 MCV 93.1 MCH 32.0 MCHC 34.3 RDW 14.5 Plt Count 335 MPV 8.2 Sodium 140 Potassium 4.0 Chloride 106 Carbon Dioxide 25 Anion Gap 9 BUN 16.7 Creatinine 1.3 Est GFR (CKD-EPI)AfAm 67.30 Est GFR (CKD-EPI)NonAf 58.07 POC Glucometer Random Glucose 278 H Calcium 8.4 L Total Bilirubin 0.9 AST 36 ALT 54 Alkaline Phosphatase 73 Total Protein 7.5 Albumin 3.3 L RPR Titer Nonreactive 05/29/19 05/29/19 05/29/19 11:58 16:32 20:52 WBC RBC Hgb Hct MCV MCH MCHC RDW Plt Count MPV Sodium Potassium Chloride Carbon Dioxide Anion Gap BUN Creatinine Est GFR (CKD-EPI)AfAm Est GFR (CKD-EPI)NonAf POC Glucometer 262 275 236 Random Glucose Calcium Total Bilirubin AST ALT Alkaline Phosphatase Total Protein Albumin RPR Titer 05/30/19 05/30/19 05:20 11:43 WBC RBC Hgb Hct MCV MCH MCHC RDW Plt Count MPV Sodium Potassium Chloride Carbon Dioxide Anion Gap BUN Creatinine Est GFR (CKD-EPI)AfAm Est GFR (CKD-EPI)NonAf POC Glucometer 241 311 Random Glucose Calcium Total Bilirubin AST ALT Alkaline Phosphatase Total Protein Albumin RPR Titer labs noted aaox3 ambulating no acute distress Assessment: 05/30/19 12:12 withdrawal sx Plan: continue detox increase fluids
[2019-05-30] MEDS: THIAMINE HCL 100 MG TABLET (FP) PO SCH (22:13)
[2019-05-31] MEDS: chlordiazePOXIDE HCL 25 MG CAPSULE PO SCH ×4 (05:31→22:09)
[2019-05-31] MEDS: metFORMIN HCL 500 MG TABLET (FP) PO SCH (06:31)
[2019-05-31] MEDS: INSULIN SLIDING SCALE (NOVOLOG) 1 VIAL SQ SCH ×4 (06:32→22:09)
[2019-05-31] MEDS: PRENATAL VITAMINS W/ FOLIC ACID TABLET (FP) PO SCH (10:32)
[2019-05-31] MEDS: amLODIPine BESYLATE 5 MG TABLET (FP) PO SCH (10:32)
[2019-05-31] MEDS: LISINOPRIL 5 MG TABLET (FP) PO SCH (10:32)
[2019-05-31] MEDS: NICOTINE 21 MG/24 HOURS TOPICAL PATCH TD SCH (10:34)
--- NOTE | 2019-05-31 11:24 | PN ---
S CIWA - CIWA Score Nausea/Vomitin-Mild Nausea/No Vomiting Muscle Tremors: 3 Anxiety: 2 Agitation: 2 Paroxysmal Sweats: 2 Orientation: 0-Oriented Tacttile Disturbances: 0-None Auditory Disturbances: 0-None Visual Disturbances: 0-None Headache: 0-None Present CIWA-Ar Total Score: 10 S Progress Note (SOAP) Subjective: Feels ok, medication is working Objective: 05/31/19 11:15 Last Vital Signs Temp Pulse Resp BP Pulse Ox 97.0 F L 86 20 144/92 05/31/19 09:27 05/31/19 09:27 05/31/19 09:27 05/31/19 09:27 Elevated b/p: has htn, on norvasc 5mg, educated on adherence to all medication Laboratory Tests 05/29/19 05/29/19 05/29/19 11:35 11:35 11:35 WBC 5.6 RBC 4.42 Hgb 14.1 Hct 41.2 MCV 93.1 MCH 32.0 MCHC 34.3 RDW 14.5 Plt Count 335 MPV 8.2 Sodium 140 Potassium 4.0 Chloride 106 Carbon Dioxide 25 Anion Gap 9 BUN 16.7 Creatinine 1.3 Est GFR (CKD-EPI)AfAm 67.30 Est GFR (CKD-EPI)NonAf 58.07 POC Glucometer Random Glucose 278 H Calcium 8.4 L Total Bilirubin 0.9 AST 36 ALT 54 Alkaline Phosphatase 73 Total Protein 7.5 Albumin 3.3 L RPR Titer Nonreactive 05/29/19 05/29/19 05/29/19 11:58 16:32 20:52 WBC RBC Hgb Hct MCV MCH MCHC RDW Plt Count MPV Sodium Potassium Chloride Carbon Dioxide Anion Gap BUN Creatinine Est GFR (CKD-EPI)AfAm Est GFR (CKD-EPI)NonAf POC Glucometer 262 275 236 Random Glucose Calcium Total Bilirubin AST ALT Alkaline Phosphatase Total Protein Albumin RPR Titer 05/30/19 05/30/19 05/30/19 05:20 11:43 16:52 WBC RBC Hgb Hct MCV MCH MCHC RDW Plt Count MPV Sodium Potassium Chloride Carbon Dioxide Anion Gap BUN Creatinine Est GFR (CKD-EPI)AfAm Est GFR (CKD-EPI)NonAf POC Glucometer 241 311 194 Random Glucose Calcium Total Bilirubin AST ALT Alkaline Phosphatase Total Protein Albumin RPR Titer 05/30/19 05/31/19 20:37 05:30 WBC RBC Hgb Hct MCV MCH MCHC RDW Plt Count MPV Sodium Potassium Chloride Carbon Dioxide Anion Gap BUN Creatinine Est GFR (CKD-EPI)AfAm Est GFR (CKD-EPI)NonAf POC Glucometer 287 242 Random Glucose Calcium Total Bilirubin AST ALT Alkaline Phosphatase Total Protein Albumin RPR Titer Labs reviewed: elevated glucose, calcium 8.4, albumin 3.3 Assessment: 05/31/19 11:18 Withdrawal sxs Noted with hyperglycemia r/t DMT2, hypocalcemia and hypoalbuminemia Plan: Continue detox Encouraged PO water intake HTN: continue norvasc, encouraged adherence to low sodium diet, educated on importance of taking medication as prescribed in preventing other health problems such as stroke and kidney damage, monitor b/p, consider increasing norvasc if warranted DMT2 with hyperglycemia r/t DMT2: continue metformin and other diabetic regimen Hypocalcemia, mild: start calcium carbonate 650mg PO bid x 2 days, repeat serum calcium on 06/02/19 Hypoalbuminemia: encouraged diet
[2019-05-31] MEDS ORDERED: INSULIN SLIDING SCALE (NOVOLOG) 1 VIAL SQ ONE (12:02)
[2019-05-31] MEDS: CALCIUM CARBONATE 650 MG TABLET PO SCH ×2 (15:17→22:09)
[2019-05-31] MEDS: THIAMINE HCL 100 MG TABLET (FP) PO SCH (22:09)
[2019-06-01] MEDS ORDERED: chlordiazePOXIDE HCL 10 MG CAPSULE PO PRN
[2019-06-01] MEDS: chlordiazePOXIDE HCL 10 MG CAPSULE PO SCH ×2 (05:20→10:10)
[2019-06-01] MEDS: metFORMIN HCL 500 MG TABLET (FP) PO SCH (07:03)
[2019-06-01] MEDS: INSULIN SLIDING SCALE (NOVOLOG) 1 VIAL SQ SCH ×2 (07:04→12:00)
[2019-06-01 09:42] LABS: URINE APPEARANCE CLEAR; URINE BILIRUBIN NEGATIVE (NEGATIVE); URINE COLOR YELLOW; URINE GLUCOSE (UA) 3+ (NEGATIVE); URINE KETONE NEGATIVE (NEGATIVE); URINE LEUK ESTERASE NEGATIVE (NEGATIVE); URINE NITRITE NEGATIVE (NEGATIVE); URINE PROTEIN NEGATIVE (NEGATIVE); URINE UROBILINOGEN 0.2 mg/dL (0.2-1.0)
[2019-06-01] MEDS: PRENATAL VITAMINS W/ FOLIC ACID TABLET (FP) PO SCH (10:09)
[2019-06-01] MEDS: CALCIUM CARBONATE 650 MG TABLET PO SCH (10:10)
[2019-06-01] MEDS: NICOTINE 21 MG/24 HOURS TOPICAL PATCH TD SCH (10:10)
[2019-06-01] MEDS: amLODIPine BESYLATE 5 MG TABLET (FP) PO SCH (10:10)
[2019-06-01] MEDS: LISINOPRIL 5 MG TABLET (FP) PO SCH (10:10)
--- NOTE | 2019-06-01 10:10 | PN ---
S CIWA - CIWA Score Nausea/Vomitin-Mild Nausea/No Vomiting Muscle Tremors: 1-None Visible, but [place] Anxiety: 2 Agitation: 2 Paroxysmal Sweats: No Perspiration Orientation: 0-Oriented Tacttile Disturbances: 1-Very Mild Itch/Numbness Auditory Disturbances: 0-None Visual Disturbances: 0-None Headache: 1-Very Mild CIWA-Ar Total Score: 8 BHS Progress Note (SOAP) Subjective: alert,irritable,anxious,interrupted sleep Objective: 06/01/19 10:08 Vital Signs Temperature 97.2 F L 06/01/19 09:15 Pulse Rate 81 06/01/19 09:15 Respiratory Rate 18 06/01/19 09:15 Blood Pressure 152/92 06/01/19 09:15 O2 Sat by Pulse Oximetry (%) 06/01/19 10:09 bgm 240 Assessment: 06/01/19 10:09 withdrawal symptom Plan: continue detox,bgm 240,increase metformin to 500 mgs po bid with bgm monitoring
[2019-06-01 13:01] VITALS: BP 153/100; PULSE 90; TEMP 97.7
--- NOTE | 2019-06-01 13:27 | PN ---
[facility] Progress Note Note: patient would like to leave to go to [facility] rehab,feeling better,no withdrawal symptom, stable for discharge,follow up [facility] after care program as arrangment and hid own medical provider for medical problem
--- NOTE | 2019-06-01 13:30 | DS ---
[facility] Detox Discharge Summary Admission Date: 05/29/19 Discharge Date: 06/01/19 - History Present History: Alcohol Dependence, Cocaine Dependence Additional Comments: stable for discharge,[facility] for medical problem Pertinent Past History: type 2 dm hypertension old cva - Physical Exam Results Vital Signs: Vital Signs Temperature 97.7 F 06/01/19 13:01 Pulse Rate 90 06/01/19 13:01 Respiratory Rate 18 06/01/19 13:01 Blood Pressure 153/100 06/01/19 13:01 O2 Sat by Pulse Oximetry (%) Pertinent Admission Physical Exam Findings: withdrawal signs and symptom Vital Signs Temperature 97.7 F 06/01/19 13:01 Pulse Rate 90 06/01/19 13:01 Respiratory Rate 18 06/01/19 13:01 Blood Pressure 153/100 06/01/19 13:01 O2 Sat by Pulse Oximetry (%) Laboratory Last Values WBC 5.6 K/mm3 (4.0-10.0) 05/29/19 11:35 RBC 4.42 M/mm3 (4.00-5.60) 05/29/19 11:35 Hgb 14.1 GM/dL (11.7-16.9) 05/29/19 11:35 Hct 41.2 % (35.4-49) 05/29/19 11:35 MCV 93.1 fl (80-96) 05/29/19 11:35 MCH 32.0 pg (25.7-33.7) 05/29/19 11:35 MCHC 34.3 g/dl (32.0-35.9) 05/29/19 11:35 RDW 14.5 % (11.9-15.9) 05/29/19 11:35 Plt Count 335 K/MM3 (134-434) 05/29/19 11:35 MPV 8.2 fl (7.5-11.1) 05/29/19 11:35 Sodium 140 mmol/L (136-145) 05/29/19 11:35 Potassium 4.0 mmol/L (3.5-5.1) 05/29/19 11:35 Chloride 106 mmol/L (98-107) 05/29/19 11:35 Carbon Dioxide 25 mmol/L (21-32) 05/29/19 11:35 Anion Gap 9 MMOL/L (8-16) 05/29/19 11:35 BUN 16.7 mg/dL (7-18) 05/29/19 11:35 Creatinine 1.3 mg/dL (0.55-1.3) 05/29/19 11:35 Est GFR (CKD-EPI)AfAm 67.30 05/29/19 11:35 Est GFR (CKD-EPI)NonAf 58.07 05/29/19 11:35 POC Glucometer 275 UNITS (80-120) 06/01/19 11:30 Random Glucose 278 mg/dL (74-106) H 05/29/19 11:35 Calcium 8.4 mg/dL (8.5-10.1) L 05/29/19 11:35 Total Bilirubin 0.9 mg/dL (0.2-1) 05/29/19 11:35 AST 36 U/L (15-37) 05/29/19 11:35 ALT 54 U/L (13-61) 05/29/19 11:35 Alkaline Phosphatase 73 U/L (45-117) 05/29/19 11:35 Total Protein 7.5 g/dl (6.4-8.2) 05/29/19 11:35 Albumin 3.3 g/dl (3.4-5.0) L 05/29/19 11:35 Urine Color Yellow 06/01/19 08:00 Urine Appearance Clear 06/01/19 08:00 Urine pH 7.0 (5.0-8.0) 06/01/19 08:00 Ur Specific [place] 1.017 (1.010-1.035) 06/01/19 08:00 Urine Protein Negative (NEGATIVE) 06/01/19 08:00 Urine Glucose (UA) 3+ (NEGATIVE) H 06/01/19 08:00 Urine Ketones Negative (NEGATIVE) 06/01/19 08:00 Urine Blood Negative (NEGATIVE) 06/01/19 08:00 Urine Nitrite Negative (NEGATIVE) 06/01/19 08:00 Urine Bilirubin Negative (NEGATIVE) 06/01/19 08:00 Urine Urobilinogen 0.2 mg/dL (0.2-1.0) 06/01/19 08:00 Ur Leukocyte Esterase Negative (NEGATIVE) 06/01/19 08:00 RPR Titer Nonreactive (NONREACTIVE) 05/29/19 11:35 - Treatment Hospital Course: Detox Protocol Followed, Detoxed Safely, Responded well, Discharged Condition Good, Rehab Referral Accepted Patient has Accepted a Rehab Referral to: [facility] - Medication Discharge Medications: Ambulatory Orders Lisinopril [Prinivil] 5 mg PO DAILY #30 tablet 03/11/19 Metformin HCl [Glucophage] 500 mg PO DAILY #30 tablet 03/11/19 - Diagnosis (1) Alcohol dependence with uncomplicated withdrawal Current Visit: No Status: Acute (2) Cocaine dependence Current Visit: No Status: Acute (3) DM2 (diabetes mellitus, type 2) Current Visit: No Status: Chronic (4) Essential hypertension Current Visit: No Status: Chronic (5) History of positive PPD Current Visit: No Status: Chronic (6) Nicotine dependence Current Visit: No Status: Chronic Qualifiers: Nicotine product type: cigarettes Substance use status: uncomplicated Qualified Code(s): F17.210 - Nicotine dependence, cigarettes, uncomplicated (7) Old cerebrovascular accident (CVA) without late effect Current Visit: No Status: Chronic - AMA Did Patient Leave Against Medical Advice: No
[2019-06-01] MEDS ORDERED: metFORMIN HCL 500 MG TABLET (FP) PO SCH (16:30)
[2019-06-02] MEDS ORDERED: chlordiazePOXIDE HCL 10 MG CAPSULE PO SCH (05:00)
[2019-06-03] MEDS ORDERED: chlordiazePOXIDE HCL 10 MG CAPSULE PO ONE (05:00)
== END 2019-06-01 14:05 | disposition home or self-care (01) | DRG 774 ==
LOC: YASAS 10:17 → Y6N 11:48
PROVIDERS: ADMIT Allergy & Immunology; ATTEND Allergy & Immunology
PROC: HZ2ZZZZ Detoxification Services for Substance Abuse Treatment (ICD-10-PCS; principal; 2019-05-29)
DX: F10.230 Alcohol dependence with withdrawal, uncomplicated (principal); F14.20 Cocaine dependence, uncomplicated; F17.210 Nicotine dependence, cigarettes, uncomplicated; I10 Essential (primary) hypertension; E11.9 Type 2 diabetes mellitus without complications; R76.11 Nonspecific reaction to tuberculin skin test without active tuberculosis; Z86.73 Personal history of transient ischemic attack (TIA), and cerebral infarction without residual deficits; Z79.84 Long term (current) use of oral hypoglycemic drugs; Z59.0 Homelessness
CPT/HCPCS: 36415; 71046-TC-FY; 80053; 81003; 82962; 85027; 86593

== ENCOUNTER 2019-06-30 20:29 | Inpatient (IN) | payer OTHER ==
--- NOTE | 2019-06-30 20:39 | PDOC ---
History of Present Illness - General Chief Complaint: Alcohol intoxication Stated Complaint: ALTERED MENTAL STATUS Time Seen by Provider: 06/30/19 20:36 History Source: Patient Exam Limitations: No Limitations - History of Present Illness Initial Comments: Ant is a 64 yo M w a hx of HTN, NIDDM, CVA, HIV, polysubstance abuse(EtOH, crack, tobacco) who presents to the [facility] er with an altered mental status to be "medically cleared" for cocaine rehab at [facility]. The patient cannot provide much history and does not know where he is. He admits to having drank multiple pints of alcohol earlier today that he finished at 1 pm. He denies any complaints of pain or withdrawal. Denies chest pain, SOB, difficulty breathing, blurry vision, back pain, seizures , hallucinations, weakness, numbness, tingling, or chills PCP: None Allergies: NKA, NKDA Social Hx: "uses every drug he can get his hands on including alcohol, crack, cocaine and more" PSH: Right knee and leg surgery Past History - Past Medical History Allergies/Adverse Reactions: Allergies Allergy/AdvReac Type Severity Reaction Status Date / Time No Known Allergies Allergy Verified 06/30/19 16:09 Home Medications: Ambulatory Orders Lisinopril [Prinivil] 5 mg PO DAILY #30 tablet 03/11/19 Metformin HCl [Glucophage] 500 mg PO DAILY #30 tablet 03/11/19 Amlodipine Besylate [Norvasc -] 5 mg PO DAILY #30 tablet 06/01/19 Anemia: No Asthma: No Cancer: No Cardiac Disorders: No CVA: Yes (STROKE 2003--[place], [place]) COPD: No CHF: No Dementia: No Diabetes: Yes (Type II) GI Disorders: No Disorders: No HTN: Yes Hypercholesterolemia: No Kidney Stones: No Liver Disease: No Seizures: No Thyroid Disease: No - Surgical History Abdominal Surgery: No Appendectomy: No Cardiac Surgery: No Cholecystectomy: No Lung Surgery: No Neurologic Surgery: No Orthopedic Surgery: Yes (s/p surgery for fx right knee and right leg in 1998) - Reproductive History Testicular Surgery: No - Psycho Social/Smoking Cessation Hx Smoking History: Current every day smoker Have you smoked in the past 12 months: Yes Number of Cigarettes Smoked Daily: 20 Cigars Per Day: 0 'Breaking Loose' booklet given: 06/30/19 Hx Alcohol Use: Yes Drug/Substance Use Hx: Yes Substance Use Type: Cocaine Hx Substance Use Treatment: Yes Review of Systems - Review of Systems Able to Perform ROS?: No (intoxicated) *Physical Exam - Physical Exam General Appearance: Yes: Nourished, Appropriately Dressed. No: Apparent Distress HEENT: positive: EOMI, DINESH, Normal ENT Inspection, Normal Voice. negative: Scleral Icterus (R), Scleral Icterus (L), Muffled/Hoarse voice, Pharyngeal Erythema, Nasal Congestion, Rhinorrhea, Sinus Tenderness Neck: positive: Supple. negative: Tender, Decreased range of motion Respiratory/Chest: positive: Lungs Clear, Normal Breath Sounds Cardiovascular: positive: Regular Rhythm, Regular Rate, S1, S2 Vascular Pulses: Dorsalis-Pedis (R): 2+, Doralis-Pedis (L): 2+ Gastrointestinal/Abdominal: positive: Soft Rectal Exam: positive: deferred Lymphatic: negative: Adenopathy Musculoskeletal: positive: Normal Inspection. negative: CVA Tenderness Extremity: positive: Normal Capillary Refill, Normal Inspection, Normal Range of Motion, Tender, Pelvis Stable Integumentary: positive: Normal Color, Dry, Warm. 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 negative: Fully Oriented, Normal Mood/Affect, Abnormal Cranial NS, EOM Palsy, Facial Droop, Numbness, Sensory Deficit, Finger to Nose ED Treatment Course - LABORATORY CBC & Chemistry Diagram: 06/30/19 21:49 06/30/19 21:49 Medical Decision Making - Medical Decision Making Ant is a 64 yo M w a hx of HTN, NIDDM, CVA, HIV, polysubstance abuse(EtOH, crack, tobacco) who presents to the [facility] er with an altered mental status to be "medically cleared" for cocaine rehab at [facility]. The patient cannot provide much history and does not know where he is. He admits to having drank multiple pints of alcohol earlier today that he finished at 1 pm. He denies any complaints of pain or withdrawal. Denies chest pain, SOB, difficulty breathing, blurry vision, back pain, seizures , hallucinations, weakness, numbness, tingling, or chills Vital Signs Temp Pulse Resp BP Pulse Ox 98.5 F 89 18 136/85 98 06/30/19 20:55 06/30/19 20:55 06/30/19 20:55 06/30/19 20:55 06/30/19 20:55 DDx IBNLT: electrolyte/metabolic disturbance, Brain bleed, alcohol vs other drug intoxication Plan: Labs, EKG, head CT, IV hydration, re-assess. EKG: NS rate of 73, narrow complexes, normal axis, no hypertrophy, WA 156, QTc 438, no ST elevations or depressions, inferior Q waves suggestive of inferior infarct of undetermined age. Labs: Elevated glucose but otherwise unremarkable Urine: Positive for cocaine and benzo Head CT: No acute bleed Re-assessment: Patient still confused and altered. His alcohol level is undetectable. It is possible this confusion is secondary to korsakoff but we do not have a good explanation as to why he is presently altered. Disposition: Admit to hospital for persistently altered mental status Discharge - Discharge Information Problems reviewed: Yes Clinical Impression/Diagnosis: Altered mental status Qualifiers: Altered mental status type: unspecified Qualified Code(s): R41.82 - Altered mental status, unspecified Condition: Stable - Admission Yes - Follow up/Referral - Patient Discharge Instructions - Post Discharge Activity
[2019-06-30] MEDS ORDERED: FOLIC ACID INJECTION - 1 MG, THIAMINE HCL 100 MG, MULTIVIT INJECTION ADULT 10 ML in SOD... IVPB ONE (20:40)
[2019-06-30] MEDS ORDERED: SODIUM CHLORIDE 0.9% 500 ML INFUS.BAG IV ONE (20:40)
--- NOTE | 2019-06-30 20:55 | PDOC ---
Attending Attestation - Resident Resident Name: jE Daneil - ED Attending Attestation I have performed the following: I have examined & evaluated the patient, The case was reviewed & discussed with the resident, I agree w/resident's findings & plan - HPI HPI: 06/30/19 22:44 see resident hpi - Physicial Exam PE: 06/30/19 22:44 agree with resident exam - Medical Decision Making 06/30/19 22:45 64-year-old male currently undergoing detox for alcohol and cocaine now with altered mental status/confusion and disorientation Patient has no focal neurological findings though in light of history of alcohol use he will be admitted for further evaluation and work-up Differential diagnosis does include vitamin deficiency A banana bag was administered in the emergency department Plan on admission to medical service
[2019-06-30 21:58] LABS: EOS % 3.5 % (0-4.5); HEMATOCRIT 41.7 % (35.4-49); HEMOGLOBIN 14.3 GM/dL (11.7-16.9); LYMPH % 31.3 % (8-40); MCH 32.3 pg (25.7-33.7); MCHC 34.4 g/dl (32.0-35.9); MEAN CELL VOLUME 93.9 fl (80-96); MEAN PLT VOLUME 7.3 fl (7.5-11.1); MONO % 13.3 % (3.8-10.2); NEUT % 50.9 % (42.8-82.8); PLATELET COUNT 408 K/MM3 (134-434); RBC 4.44 M/mm3 (4.00-5.60); WHITE BLOOD COUNT 5.3 K/mm3 (4.0-10.0)
[2019-06-30 22:11] LABS: INR 0.95 (0.83-1.09); PROTHROMBIN TIME (PATIENT) 11.2 SEC (9.7-13.0)
[2019-06-30 22:13] LABS: ACTIVATED PTT 31.7 SECONDS (25.2-36.5)
[2019-06-30 22:21] LABS: ALBUMIN 3.3 g/dl (3.4-5.0); BILIRUBIN,TOTAL 0.4 mg/dL (0.2-1); BLOOD UREA NITROGEN 14.8 mg/dL (7-18); CALCIUM 8.8 mg/dL (8.5-10.1); CREATININE 0.9 mg/dL (0.55-1.3); POTASSIUM 4.1 mmol/L (3.5-5.1); TOT PROT 7.7 g/dl (6.4-8.2)
[2019-06-30 22:57] LABS: PH,URINE 7.5 (5.0-8.0); URINE APPEARANCE CLEAR; URINE BILIRUBIN NEGATIVE (NEGATIVE); URINE COLOR YELLOW; URINE GLUCOSE (UA) 3+ (NEGATIVE); URINE KETONE NEGATIVE (NEGATIVE); URINE LEUK ESTERASE NEGATIVE (NEGATIVE); URINE NITRITE NEGATIVE (NEGATIVE); URINE PROTEIN NEGATIVE (NEGATIVE)
[2019-06-30 23:09] LABS: METHADONE, UR NEGATIVE ng/ml (CUTOFF=300); OPIATES, URI NEGATIVE ng/ml (CUTOFF=300); PHENCYCLIDINE,URINE NEGATIVE ng/ml (CUTOFF=25); URINE AMPHETAMINES NEGATIVE ng/ml (CUTOFF=500); URINE BARBITURATES NEGATIVE ng/ml (CUTOFF=200)
[2019-06-30 23:11] LABS: COCAINE, UR POSITIVE ng/ml (CUTOFF=300); URINE BENZODIAZEPINES POSITIVE ng/ml (CUTOFF=200)
--- NOTE | 2019-06-30 23:57 | PN ---
Teaching Attending Note Name of Resident: Kostas Ballard ATTENDING PHYSICIAN STATEMENT I saw and evaluated the patient. I reviewed the resident's note and discussed the case with the resident. I agree with the resident's findings and plan as documented. SUBJECTIVE: 64 yo man w a hx of HTN, NIDDM, CVA, HIV (Unknown CD4 count or viral load), polysubstance abuse(EtOH, crack, tobacco) Sent in for from [facility] to [facility] with altered mental status. When I saw patient he was drowsy but arousable to verbal stimuli. OBJECTIVE: Last Vital Signs Temp Pulse Resp BP Pulse Ox 98.5 F 89 18 136/85 98 06/30/19 20:55 06/30/19 20:55 06/30/19 20:55 06/30/19 20:55 06/30/19 20:55 GENERAL: Well developed, well nourished. Awake and alert. No acute distress. HEENT: Normocephalic, atraumatic. PERRLA, EOMI. No conjunctival pallor. Sclera are non- icteric. Moist mucous membranes. Oropharynx is clear. NECK: Supple. Full ROM. No JVD. Carotid pulses 2+ and symmetric, without bruits. No thyromegaly. No lymphadenopathy. CARDIOVASCULAR: Regular rate and rhythm. No murmurs, rubs, or gallops. Distal pulses are 2+ and symmetric. PULMONARY: No evidence of respiratory distress. Lungs clear to auscultation bilaterally. No wheezing, rales or rhonchi. ABDOMINAL: Soft. Non-tender. Non-distended. No rebound or guarding. No organomegaly. Normoactive bowel sounds. MUSCULOSKELETAL Normal range of motion at all joints. No bony deformities or tenderness. No CVA tenderness. EXTREMITIES: No cyanosis. No clubbing. No edema. No calf tenderness. SKIN: Warm and dry. Normal capillary refill. No rashes. No jaundice. NEUROLOGICAL: Drowsy, pinpoint pupils, no focal neurological deficits appreciated at this time Abnormal Lab Results 06/30/19 06/30/19 06/30/19 21:49 21:49 21:49 MPV 7.3 L D Monocytes % 13.3 H Anion Gap 4 L Random Glucose 179 H Albumin 3.3 L Urine Glucose (UA) Salicylates < 1.7 L Benzodiazepines Screen Cocaine Screen 06/30/19 06/30/19 22:47 22:47 MPV Monocytes % Anion Gap Random Glucose Albumin Urine Glucose (UA) 3+ H Salicylates Benzodiazepines Screen Positive A* Cocaine Screen Positive A* Imaging reviewed Chest x-ray was remarkable for sclerotic aortic knob as well as blunting of left costophrenic angle which was visible on the prior chest x-ray. Head CT showed old watershed infarcts involving left temporal and left parietal region. Subacute or chronic infarct with gliosis throughout the periventricular white matter on the left. Intracranial arterial calcifications are noted. No intracranial mass or mass-effect. No evidence of an acute intracranial bleed. ASSESSMENT AND PLAN: 64-year-old man with polysubstance abuse including cocaine, EtOH, benzos with altered mental status. Head CT showed old watershed infarcts in left temporal and parietal region. MedSurg IV fluid hydration CIWA protocol Librium protocol Banana bag TSH, B12 vitamin, RPR #HIVunknown CD4 count or viral load or ART medication patient was taking Send CD4 count and viral load Attempt to contact PCP for more information in a.m. Heparin subcutaneously for DVT prophylaxis #Hyperglycemia NovoLog sliding scale Levemir basal insulin 10 units nightly A1c Diabetic diet
[2019-07-01] MEDS: SODIUM CHLORIDE 1,000 ML IV SCH ×2 (02:14→10:12)
--- NOTE | 2019-07-01 02:42 | HP ---
PCP: does not have one HISTORY OF PRESENT ILLNESS: This is a 64 y/o M with a PMHx significant for polysubstance abuse, HIV who was BIBEMS from [facility], where he tried to receive detox. He reports he was there for 1 day until he was found to be altered and brought to [facility] for evaluation. Pt seems to have some memory difficulties. He admits to drinking yesterday 1 1/2 liter vodka and smoked cocaine 5 rocks of crack cocaine. He is homeless and hops around different places in [place]. He looks disheveled and poorly kempt. He denies any acute intoxication or withdrawal symptoms of ETOH/cocaine at this time. ER course was notable for: (1) UA tox + benzo, cocaine, negative for ETOH (2) CT head- watershed (old) infarcts in temporoparietal areas with intracranial calcifications (3) CXR- negative for acute pathology Social History: Smoking: crack cocaine X 14 yrs (5 rocks/day) Alcohol: 1/2 liters vodka/day X 14 yrs Drugs: cocaine snorts 1 bag/day X 14 yrs Allergies No Known Allergies Allergy (Verified 06/30/19 16:09) HOME MEDICATIONS: Home Medications Medication Instructions Recorded Lisinopril [Prinivil] 5 mg PO DAILY #30 tablet 03/11/19 Metformin HCl [Glucophage] 500 mg PO DAILY #30 tablet 03/11/19 Amlodipine Besylate [Norvasc -] 5 mg PO DAILY #30 tablet 06/01/19 REVIEW OF SYSTEMS Negative except above PHYSICAL EXAMINATION Vital Signs - 24 hr 06/30/19 20:55 Temperature 98.5 F Pulse Rate 89 Respiratory 18 Rate Blood Pressure 136/85 O2 Sat by Pulse 98 Oximetry (%) GENERAL: AO X 2 (not oriented to place), obtunded and pinpoint pupils HEAD: Normal with no signs of trauma. LUNGS: Breath sounds equal, clear to auscultation bilaterally. No wheezes, and no crackles. No accessory muscle use. HEART: Regular rate and rhythm, normal S1 and S2 without murmur, rub or gallop. ABDOMEN: Soft, nontender, not distended, normoactive bowel sounds, no guarding, no rebound, no masses. LOWER EXTREMITIES: 2+ pulses, warm, well-perfused. No calf tenderness. No peripheral edema. NEUROLOGICAL: Cranial nerves II-XII intact. Normal speech. 5/5 strength b/l upper and lower extremities with sensation intact, Eyes full ROM intact. PSYCHIATRIC: Cooperative. Good eye contact. Appropriate mood and affect. SKIN: Warm, well perfused ` Laboratory Results - last 24 hr 06/30/19 06/30/19 06/30/19 21:49 21:49 21:49 WBC RBC Hgb Hct MCV MCH MCHC RDW Plt Count MPV Absolute Neuts (auto) Neutrophils % Lymphocytes % Monocytes % Eosinophils % Basophils % Nucleated RBC % PT with INR 11.20 INR 0.95 PTT (Actin FS) 31.7 Sodium Potassium Chloride Carbon Dioxide Anion Gap BUN Creatinine Est GFR (CKD-EPI)AfAm Est GFR (CKD-EPI)NonAf Random Glucose Calcium Total Bilirubin AST ALT Alkaline Phosphatase Troponin I Total Protein Albumin Urine Color Urine Appearance Urine pH Ur Specific [place] Urine Protein Urine Glucose (UA) Urine Ketones Urine Blood Urine Nitrite Urine Bilirubin Urine Urobilinogen Ur Leukocyte Esterase Salicylates < 1.7 L Opiates Screen Methadone Screen Acetaminophen <2.0 Barbiturate Screen Phencyclidine Screen Ur Amphetamines Screen MDMA (Ecstasy) Screen Benzodiazepines Screen Cocaine Screen U Marijuana (THC) Screen Alcohol, Quantitative < 3 06/30/19 06/30/19 06/30/19 21:49 21:49 21:49 WBC 5.3 RBC 4.44 Hgb 14.3 Hct 41.7 MCV 93.9 MCH 32.3 MCHC 34.4 RDW 14.0 Plt Count 408 D MPV 7.3 L D Absolute Neuts (auto) 2.7 Neutrophils % 50.9 Lymphocytes % 31.3 Monocytes % 13.3 H Eosinophils % 3.5 Basophils % 1.0 Nucleated RBC % 0 PT with INR INR PTT (Actin FS) Sodium 140 Potassium 4.1 Chloride 105 Carbon Dioxide 31 Anion Gap 4 L BUN 14.8 Creatinine 0.9 Est GFR (CKD-EPI)AfAm 104.98 Est GFR (CKD-EPI)NonAf 90.58 Random Glucose 179 H Calcium 8.8 Total Bilirubin 0.4 AST 29 ALT 43 Alkaline Phosphatase 104 Troponin I < 0.02 Total Protein 7.7 Albumin 3.3 L Urine Color Urine Appearance Urine pH Ur Specific [place] Urine Protein Urine Glucose (UA) Urine Ketones Urine Blood Urine Nitrite Urine Bilirubin Urine Urobilinogen Ur Leukocyte Esterase Salicylates Opiates Screen Methadone Screen Acetaminophen Barbiturate Screen Phencyclidine Screen Ur Amphetamines Screen MDMA (Ecstasy) Screen Benzodiazepines Screen Cocaine Screen U Marijuana (THC) Screen Alcohol, Quantitative 06/30/19 06/30/19 22:47 22:47 WBC RBC Hgb Hct MCV MCH MCHC RDW Plt Count MPV Absolute Neuts (auto) Neutrophils % Lymphocytes % Monocytes % Eosinophils % Basophils % Nucleated RBC % PT with INR INR PTT (Actin FS) Sodium Potassium Chloride Carbon Dioxide Anion Gap BUN Creatinine Est GFR (CKD-EPI)AfAm Est GFR (CKD-EPI)NonAf Random Glucose Calcium Total Bilirubin AST ALT Alkaline Phosphatase Troponin I Total Protein Albumin Urine Color Yellow Urine Appearance Clear Urine pH 7.5 Ur Specific [place] 1.015 Urine Protein Negative Urine Glucose (UA) 3+ H Urine Ketones Negative Urine Blood Negative Urine Nitrite Negative Urine Bilirubin Negative Urine Urobilinogen 1.0 Ur Leukocyte Esterase Negative Salicylates Opiates Screen Negative Methadone Screen Negative Acetaminophen Barbiturate Screen Negative Phencyclidine Screen Negative Ur Amphetamines Screen Negative MDMA (Ecstasy) Screen Negative Benzodiazepines Screen Positive A* Cocaine Screen Positive A* U Marijuana (THC) Screen Negative Alcohol, Quantitative ASSESSMENT/PLAN: This is a 64-year-old man with a PMHx of HTN, NIDDM, CVA,polysubstance abuse including cocaine, EtOH, benzos who presents with altered mental status. #Altered mental status -> likely 2/2 acute Polysubstance abuse - will admit to MedSurg - IV fluid hydration - initial CIWA score was 0 but will continue CIWA protocol - Librium protocol - Banana bag - TSH, B12, folate, RPR - Mg, PO4 sent - regular diet - A1C given poor o/p care and UA + for glucose - CT head showing watershed (old) infarcts in temporoparietal areas with intracranial calcifications - normal LFT's - Librium protocol prn #HIV - Pt denies taking any medications for this - will order CD4 count/viral loads - no AIDS like illnesses present grossly - Hep panel #HTN - BP stable not hypertensive at this time - will start pt on and HANG/ARB in event pt becomes hypertensive - avoid BB's at this time given acute cocaine abuse #NIDDM - ISS TIDAC - A1C #Hx of CVA - ASA and Statin should be started but highly unlikely pt would be compliant DVT prophylaxis: Heparin 5K TID Visit type - Emergency Visit Emergency Visit: Yes ED Registration Date: 06/30/19 Care time: The patient presented to the Emergency Department on the above date and was hospitalized for further evaluation of their emergent condition. - New Patient This patient is new to me today: Yes Date on this admission: 07/03/19 - Critical Care Critical Care patient: No ATTENDING PHYSICIAN STATEMENT I saw and evaluated the patient. I reviewed the resident's note and discussed the case with the resident. I agree with the resident's findings and plan as documented. SUBJECTIVE: OBJECTIVE: ASSESSMENT AND PLAN:
[2019-07-01] MEDS ORDERED: chlordiazePOXIDE HCL 10 MG CAPSULE PO ONE (03:34)
[2019-07-01] MEDS ORDERED: chlordiazePOXIDE HCL 10 MG CAPSULE ONE (05:37)
[2019-07-01 06:47] LABS: HEMATOCRIT 41.5 % (35.4-49); HEMOGLOBIN 14.1 GM/dL (11.7-16.9); MCH 31.9 pg (25.7-33.7); MEAN CELL VOLUME 93.9 fl (80-96); MEAN PLT VOLUME 7.9 fl (7.5-11.1); PLATELET COUNT 376 K/MM3 (134-434); RBC 4.42 M/mm3 (4.00-5.60); RDW 14.1 % (11.9-15.9); WHITE BLOOD COUNT 5.4 K/mm3 (4.0-10.0)
[2019-07-01] MEDS: INSULIN SLIDING SCALE (NOVOLOG) 1 VIAL SQ SCH ×3 (07:39→17:47)
[2019-07-01 07:56] LABS: BILIRUBIN,TOTAL 0.6 mg/dL (0.2-1); BLOOD UREA NITROGEN 10.9 mg/dL (7-18); CALCIUM 8.6 mg/dL (8.5-10.1); CREATININE 0.8 mg/dL (0.55-1.3); MAGNESIUM 1.9 mg/dL (1.8-2.4); PHOSPHOROUS 2.5 mg/dL (2.5-4.9); POTASSIUM 3.7 mmol/L (3.5-5.1); TOT PROT 7.1 g/dl (6.4-8.2)
[2019-07-01] MEDS ORDERED: ACETAMINOPHEN 325 MG TABLET (FP) PO ONE (09:12)
[2019-07-01] MEDS ORDERED: LISINOPRIL 10 MG TABLET (FP) PO SCH (10:00)
[2019-07-01] MEDS: THIAMINE HCL 100 MG TABLET (FP) PO SCH (10:05)
[2019-07-01] MEDS: MULTIVITAMINS (DAILY MVI) TABLET (FP) PO SCH (10:05)
[2019-07-01] MEDS: ENOXAPARIN NA (PORCINE) 40 MG/0.4 ML DISP.SYRIN SQ SCH (10:05)
[2019-07-01] MEDS: FOLIC ACID 1 MG TABLET (FP) PO SCH (10:05)
[2019-07-01] MEDS ORDERED: ACETAMINOPHEN 325 MG TABLET (FP) ONE (10:06)
--- NOTE | 2019-07-01 10:38 | EKG ---
Test Reason : Blood Pressure : / mmHG Vent. Rate : 073 BPM Atrial Rate : 073 BPM P-R Int : 156 ms QRS Dur : 082 ms QT Int : 398 ms P-R-T Axes : 042 031 048 degrees QTc Int : 438 ms NORMAL SINUS RHYTHM WITH SINUS ARRHYTHMIA CANNOT RULE OUT INFERIOR INFARCT , AGE UNDETERMINED ABNORMAL ECG WHEN COMPARED WITH ECG OF 14-MAY-2018 12:00, NONSPECIFIC T WAVE ABNORMALITY NOW EVIDENT IN ANTERIOR LEADS Confirmed by MERLINE SAMUELS, LINDY ([id number]) on 07/01/2019 10:38:09 AM Referred By: Confirmed By:LINDY RICK MD
--- NOTE | 2019-07-01 17:15 | PN ---
Physical Exam: SUBJECTIVE: Patient seen and examined at the bedside. Stated that he is doing well and had no acute complaints of cp, sob, abd pain, n/v/c/d, fever, chills, numbness, tingling, weakness. Had a headache. Wanted to return to [facility] for rehab. Patient stated that his last drink was 2 weeks prior. OBJECTIVE: Vital Signs Period Temp Pulse Resp BP Sys/Silva Pulse Ox Last 24 Hr 97.6 F-98.5 F 61-90 18-18 121-136/77-87 95-98 GENERAL: AO X 2 confused about day and month, alert and awake. HEAD: Normal with no signs of trauma. LUNGS: Breath sounds equal, clear to auscultation bilaterally. No wheezes, and no crackles. No accessory muscle use. HEART: Regular rate and rhythm, normal S1 and S2 without murmur, rub or gallop. ABDOMEN: Soft, nontender, not distended, normoactive bowel sounds, no guarding, no rebound, no masses. LOWER EXTREMITIES: 2+ pulses, warm, well-perfused. No calf tenderness. No peripheral edema. NEUROLOGICAL: Cranial nerves II-XII intact. Normal speech. 5/5 strength b/l upper and lower extremities with sensation intact. PSYCHIATRIC: Cooperative. Good eye contact. Appropriate mood and affect. SKIN: Warm, well perfused. Laboratory Results - last 24 hr 06/30/19 06/30/19 06/30/19 21:49 21:49 21:49 WBC RBC Hgb Hct MCV MCH MCHC RDW Plt Count MPV Absolute Neuts (auto) Neutrophils % Lymphocytes % Monocytes % Eosinophils % Basophils % Nucleated RBC % ESR PT with INR 11.20 INR 0.95 PTT (Actin FS) 31.7 Sodium Potassium Chloride Carbon Dioxide Anion Gap BUN Creatinine Est GFR (CKD-EPI)AfAm Est GFR (CKD-EPI)NonAf POC Glucometer Random Glucose Hemoglobin A1c % Calcium Phosphorus Magnesium Total Bilirubin AST ALT Alkaline Phosphatase Troponin I Total Protein Albumin Lipase Vitamin B12 Serum Folate TSH Urine Color Urine Appearance Urine pH Ur Specific [place] Urine Protein Urine Glucose (UA) Urine Ketones Urine Blood Urine Nitrite Urine Bilirubin Urine Urobilinogen Ur Leukocyte Esterase Salicylates < 1.7 L Opiates Screen Methadone Screen Acetaminophen <2.0 Barbiturate Screen Phencyclidine Screen Ur Amphetamines Screen MDMA (Ecstasy) Screen Benzodiazepines Screen Cocaine Screen U Marijuana (THC) Screen Alcohol, Quantitative < 3 RPR Titer 06/30/19 06/30/19 06/30/19 21:49 21:49 21:49 WBC 5.3 RBC 4.44 Hgb 14.3 Hct 41.7 MCV 93.9 MCH 32.3 MCHC 34.4 RDW 14.0 Plt Count 408 D MPV 7.3 L D Absolute Neuts (auto) 2.7 Neutrophils % 50.9 Lymphocytes % 31.3 Monocytes % 13.3 H Eosinophils % 3.5 Basophils % 1.0 Nucleated RBC % 0 ESR PT with INR INR PTT (Actin FS) Sodium 140 Potassium 4.1 Chloride 105 Carbon Dioxide 31 Anion Gap 4 L BUN 14.8 Creatinine 0.9 Est GFR (CKD-EPI)AfAm 104.98 Est GFR (CKD-EPI)NonAf 90.58 POC Glucometer Random Glucose 179 H Hemoglobin A1c % Calcium 8.8 Phosphorus Magnesium Total Bilirubin 0.4 AST 29 ALT 43 Alkaline Phosphatase 104 Troponin I < 0.02 Total Protein 7.7 Albumin 3.3 L Lipase Vitamin B12 Serum Folate TSH Urine Color Urine Appearance Urine pH Ur Specific [place] Urine Protein Urine Glucose (UA) Urine Ketones Urine Blood Urine Nitrite Urine Bilirubin Urine Urobilinogen Ur Leukocyte Esterase Salicylates Opiates Screen Methadone Screen Acetaminophen Barbiturate Screen Phencyclidine Screen Ur Amphetamines Screen MDMA (Ecstasy) Screen Benzodiazepines Screen Cocaine Screen U Marijuana (THC) Screen Alcohol, Quantitative RPR Titer 06/30/19 06/30/19 07/01/19 22:47 22:47 05:35 WBC 5.4 RBC 4.42 Hgb 14.1 Hct 41.5 MCV 93.9 MCH 31.9 MCHC 34.0 RDW 14.1 Plt Count 376 MPV 7.9 Absolute Neuts (auto) Neutrophils % Lymphocytes % Monocytes % Eosinophils % Basophils % Nucleated RBC % ESR PT with INR INR PTT (Actin FS) Sodium Potassium Chloride Carbon Dioxide Anion Gap BUN Creatinine Est GFR (CKD-EPI)AfAm Est GFR (CKD-EPI)NonAf POC Glucometer Random Glucose Hemoglobin A1c % Calcium Phosphorus Magnesium Total Bilirubin AST ALT Alkaline Phosphatase Troponin I Total Protein Albumin Lipase Vitamin B12 Serum Folate TSH Urine Color Yellow Urine Appearance Clear Urine pH 7.5 Ur Specific [place] 1.015 Urine Protein Negative Urine Glucose (UA) 3+ H Urine Ketones Negative Urine Blood Negative Urine Nitrite Negative Urine Bilirubin Negative Urine Urobilinogen 1.0 Ur Leukocyte Esterase Negative Salicylates Opiates Screen Negative Methadone Screen Negative Acetaminophen Barbiturate Screen Negative Phencyclidine Screen Negative Ur Amphetamines Screen Negative MDMA (Ecstasy) Screen Negative Benzodiazepines Screen Positive A* Cocaine Screen Positive A* U Marijuana (THC) Screen Negative Alcohol, Quantitative RPR Titer 07/01/19 07/01/19 07/01/19 05:35 05:35 05:35 WBC RBC Hgb Hct MCV MCH MCHC RDW Plt Count MPV Absolute Neuts (auto) Neutrophils % Lymphocytes % Monocytes % Eosinophils % Basophils % Nucleated RBC % ESR PT with INR INR PTT (Actin FS) Sodium 139 Potassium 3.7 Chloride 106 Carbon Dioxide 27 Anion Gap 6 L BUN 10.9 Creatinine 0.8 Est GFR (CKD-EPI)AfAm 110.19 Est GFR (CKD-EPI)NonAf 95.07 POC Glucometer Random Glucose 215 H Hemoglobin A1c % Calcium 8.6 Phosphorus 2.5 Magnesium 1.9 Total Bilirubin 0.6 AST 31 ALT 40 Alkaline Phosphatase 81 Troponin I Total Protein 7.1 Albumin 3.0 L Lipase 208 Vitamin B12 1075 H Serum Folate 25 H TSH 1.80 Urine Color Urine Appearance Urine pH Ur Specific [place] Urine Protein Urine Glucose (UA) Urine Ketones Urine Blood Urine Nitrite Urine Bilirubin Urine Urobilinogen Ur Leukocyte Esterase Salicylates Opiates Screen Methadone Screen Acetaminophen Barbiturate Screen Phencyclidine Screen Ur Amphetamines Screen MDMA (Ecstasy) Screen Benzodiazepines Screen Cocaine Screen U Marijuana (THC) Screen Alcohol, Quantitative RPR Titer Nonreactive 07/01/19 07/01/19 07/01/19 05:35 05:35 07:37 WBC RBC Hgb Hct MCV MCH MCHC RDW Plt Count MPV Absolute Neuts (auto) Neutrophils % Lymphocytes % Monocytes % Eosinophils % Basophils % Nucleated RBC % ESR 9 PT with INR INR PTT (Actin FS) Sodium Potassium Chloride Carbon Dioxide Anion Gap BUN Creatinine Est GFR (CKD-EPI)AfAm Est GFR (CKD-EPI)NonAf POC Glucometer 181 Random Glucose Hemoglobin A1c % 8.9 H Calcium Phosphorus Magnesium Total Bilirubin AST ALT Alkaline Phosphatase Troponin I Total Protein Albumin Lipase Vitamin B12 Serum Folate TSH Urine Color Urine Appearance Urine pH Ur Specific [place] Urine Protein Urine Glucose (UA) Urine Ketones Urine Blood Urine Nitrite Urine Bilirubin Urine Urobilinogen Ur Leukocyte Esterase Salicylates Opiates Screen Methadone Screen Acetaminophen Barbiturate Screen Phencyclidine Screen Ur Amphetamines Screen MDMA (Ecstasy) Screen Benzodiazepines Screen Cocaine Screen U Marijuana (THC) Screen Alcohol, Quantitative RPR Titer 07/01/19 11:29 WBC RBC Hgb Hct MCV MCH MCHC RDW Plt Count MPV Absolute Neuts (auto) Neutrophils % Lymphocytes % Monocytes % Eosinophils % Basophils % Nucleated RBC % ESR PT with INR INR PTT (Actin FS) Sodium Potassium Chloride Carbon Dioxide Anion Gap BUN Creatinine Est GFR (CKD-EPI)AfAm Est GFR (CKD-EPI)NonAf POC Glucometer 229 Random Glucose Hemoglobin A1c % Calcium Phosphorus Magnesium Total Bilirubin AST ALT Alkaline Phosphatase Troponin I Total Protein Albumin Lipase Vitamin B12 Serum Folate TSH Urine Color Urine Appearance Urine pH Ur Specific [place] Urine Protein Urine Glucose (UA) Urine Ketones Urine Blood Urine Nitrite Urine Bilirubin Urine Urobilinogen Ur Leukocyte Esterase Salicylates Opiates Screen Methadone Screen Acetaminophen Barbiturate Screen Phencyclidine Screen Ur Amphetamines Screen MDMA (Ecstasy) Screen Benzodiazepines Screen Cocaine Screen U Marijuana (THC) Screen Alcohol, Quantitative RPR Titer Active Medications Generic Name Dose Route Start Last Admin Trade Name Freq PRN Reason Stop Dose Admin Enoxaparin Sodium 40 mg 07/01/19 10:00 07/01/19 10:05 Lovenox - SQ 40 mg DAILY YEISON Administration Folic Acid 1 mg 07/01/19 10:00 07/01/19 10:05 Folic Acid - PO 1 mg DAILY YEISON Administration Sodium Chloride 1,000 mls @ 83 mls/hr 07/01/19 02:00 07/01/19 10:12 Normal Saline - IV 83 mls/hr ASDIR YEISON Administration Insulin Aspart 1 vial 07/01/19 07:00 07/01/19 11:40 Novolog Vial Sliding Scale - SQ 4 unit TIDAC YEISON Administration Protocol Lisinopril 10 mg 07/01/19 10:00 07/01/19 10:05 Prinivil PO 10 mg DAILY YEISON Administration Multivitamins/Minerals/Vitamin C 1 tab 07/01/19 10:00 07/01/19 10:05 Tab-A-Vit - PO 1 tab DAILY YEISON Administration Thiamine HCl 100 mg 07/01/19 10:00 07/01/19 10:05 Vitamin B1 - PO 100 mg DAILY YEISON Administration ASSESSMENT/PLAN: Ant Sands is a 64 year old male with a past medical history of HTN, NIDDM, CVA,polysubstance abuse including cocaine, EtOH, benzos who presented from [facility] for altered mental status Altered mental status - likely 2/2 acute Polysubstance abuse, now improved - CIWA 0 - Librium protocol - Banana bag given - TSH, B12, folate, RPR all within normal limits - CT head showing watershed (old) infarcts in temporoparietal areas with intracranial calcifications - normal LFT's - CXR negative HIV - Pt denies taking any medications - HIV screen - CD4 count/viral loads - Hep panel HTN - continue home lisinopril 5mg NIDDM - ISS TIDAC - A1C 8.9, will need to follow up outpatient Hx of CVA - ASA and Statin recommended to be started, will need to follow up with primary care FEN - no standing fluids, encourage PO intake - continue to monitor electrolytes and replete as necessary - Diabetic diet DVT prophylaxis - Heparin 5000 units subq tid Dispo - monitor on Med-surg - can likely D/c tomorrow with recommendation for drug and alcohol rehab Visit type - Emergency Visit Emergency Visit: No - New Patient This patient is new to me today: Yes Date on this admission: 07/01/19 - Critical Care Critical Care patient: No
--- NOTE | 2019-07-01 18:20 | PN ---
Teaching Attending Note Name of Resident: Ceasar Ruby ATTENDING PHYSICIAN STATEMENT I saw and evaluated the patient. I reviewed the resident's note and discussed the case with the resident. I agree with the resident's findings and plan as documented with exceptions below. SUBJECTIVE: patient seen and examined, sleepy but appropriate, oriented to self and place, no complaints. OBJECTIVE: Vital Signs Period Temp Pulse Resp BP Sys/Silva Pulse Ox Last 24 Hr 97.6 F-98.5 F 61-90 18-18 121-136/77-87 95-98 Intake & Output 06/28/19 06/29/19 06/30/19 07/01/19 23:59 23:59 23:59 23:59 Weight 202 lb General: sitting in stretcher, no acute distress HEENT; PERRL, EOMI CVS:S1S2 regular Chest: CTAB, no rales or wheezing Abdomen:Soft, obese, NT extremities: no edema or tremors neuro: AA, oriented to self, place, needs re-orientation with time, able to state birthdate, PERRL, EOMI, facial symmetry, speech, slow but appropriate, sleepy but appropriate, power 5/5, sensation symmetric to touch Home Medications Medication Instructions Recorded Lisinopril [Prinivil] 5 mg PO DAILY #30 tablet 03/11/19 Metformin HCl [Glucophage] 500 mg PO DAILY #30 tablet 03/11/19 Amlodipine Besylate [Norvasc -] 5 mg PO DAILY #30 tablet 06/01/19 Active Medications Enoxaparin Sodium (Lovenox -) 40 mg SQ DAILY [facility] Last Admin: 07/01/19 10:05 Dose: 40 mg Folic Acid (Folic Acid -) 1 mg PO DAILY [facility] Last Admin: 07/01/19 10:05 Dose: 1 mg Insulin Aspart (Novolog Vial Sliding Scale -) 1 vial SQ TIDAC [facility]; Protocol Last Admin: 07/01/19 17:47 Dose: Not Given Lisinopril (Prinivil) 5 mg PO DAILY [facility] Multivitamins/Minerals/Vitamin C (Tab-A-Vit -) 1 tab PO DAILY [facility] Last Admin: 07/01/19 10:05 Dose: 1 tab Thiamine HCl (Vitamin B1 -) 100 mg PO DAILY [facility] Last Admin: 07/01/19 10:05 Dose: 100 mg Laboratory Results - last 24 hr 06/30/19 06/30/19 06/30/19 21:49 21:49 21:49 WBC RBC Hgb Hct MCV MCH MCHC RDW Plt Count MPV Absolute Neuts (auto) Neutrophils % Lymphocytes % Monocytes % Eosinophils % Basophils % Nucleated RBC % ESR PT with INR 11.20 INR 0.95 PTT (Actin FS) 31.7 Sodium Potassium Chloride Carbon Dioxide Anion Gap BUN Creatinine Est GFR (CKD-EPI)AfAm Est GFR (CKD-EPI)NonAf POC Glucometer Random Glucose Hemoglobin A1c % Calcium Phosphorus Magnesium Total Bilirubin AST ALT Alkaline Phosphatase Troponin I Total Protein Albumin Lipase Vitamin B12 Serum Folate TSH Urine Color Urine Appearance Urine pH Ur Specific [place] Urine Protein Urine Glucose (UA) Urine Ketones Urine Blood Urine Nitrite Urine Bilirubin Urine Urobilinogen Ur Leukocyte Esterase Salicylates < 1.7 L Opiates Screen Methadone Screen Acetaminophen <2.0 Barbiturate Screen Phencyclidine Screen Ur Amphetamines Screen MDMA (Ecstasy) Screen Benzodiazepines Screen Cocaine Screen U Marijuana (THC) Screen Alcohol, Quantitative < 3 RPR Titer 06/30/19 06/30/19 06/30/19 21:49 21:49 21:49 WBC 5.3 RBC 4.44 Hgb 14.3 Hct 41.7 MCV 93.9 MCH 32.3 MCHC 34.4 RDW 14.0 Plt Count 408 D MPV 7.3 L D Absolute Neuts (auto) 2.7 Neutrophils % 50.9 Lymphocytes % 31.3 Monocytes % 13.3 H Eosinophils % 3.5 Basophils % 1.0 Nucleated RBC % 0 ESR PT with INR INR PTT (Actin FS) Sodium 140 Potassium 4.1 Chloride 105 Carbon Dioxide 31 Anion Gap 4 L BUN 14.8 Creatinine 0.9 Est GFR (CKD-EPI)AfAm 104.98 Est GFR (CKD-EPI)NonAf 90.58 POC Glucometer Random Glucose 179 H Hemoglobin A1c % Calcium 8.8 Phosphorus Magnesium Total Bilirubin 0.4 AST 29 ALT 43 Alkaline Phosphatase 104 Troponin I < 0.02 Total Protein 7.7 Albumin 3.3 L Lipase Vitamin B12 Serum Folate TSH Urine Color Urine Appearance Urine pH Ur Specific [place] Urine Protein Urine Glucose (UA) Urine Ketones Urine Blood Urine Nitrite Urine Bilirubin Urine Urobilinogen Ur Leukocyte Esterase Salicylates Opiates Screen Methadone Screen Acetaminophen Barbiturate Screen Phencyclidine Screen Ur Amphetamines Screen MDMA (Ecstasy) Screen Benzodiazepines Screen Cocaine Screen U Marijuana (THC) Screen Alcohol, Quantitative RPR Titer 06/30/19 06/30/19 07/01/19 22:47 22:47 05:35 WBC 5.4 RBC 4.42 Hgb 14.1 Hct 41.5 MCV 93.9 MCH 31.9 MCHC 34.0 RDW 14.1 Plt Count 376 MPV 7.9 Absolute Neuts (auto) Neutrophils % Lymphocytes % Monocytes % Eosinophils % Basophils % Nucleated RBC % ESR PT with INR INR PTT (Actin FS) Sodium Potassium Chloride Carbon Dioxide Anion Gap BUN Creatinine Est GFR (CKD-EPI)AfAm Est GFR (CKD-EPI)NonAf POC Glucometer Random Glucose Hemoglobin A1c % Calcium Phosphorus Magnesium Total Bilirubin AST ALT Alkaline Phosphatase Troponin I Total Protein Albumin Lipase Vitamin B12 Serum Folate TSH Urine Color Yellow Urine Appearance Clear Urine pH 7.5 Ur Specific [place] 1.015 Urine Protein Negative Urine Glucose (UA) 3+ H Urine Ketones Negative Urine Blood Negative Urine Nitrite Negative Urine Bilirubin Negative Urine Urobilinogen 1.0 Ur Leukocyte Esterase Negative Salicylates Opiates Screen Negative Methadone Screen Negative Acetaminophen Barbiturate Screen Negative Phencyclidine Screen Negative Ur Amphetamines Screen Negative MDMA (Ecstasy) Screen Negative Benzodiazepines Screen Positive A* Cocaine Screen Positive A* U Marijuana (THC) Screen Negative Alcohol, Quantitative RPR Titer 07/01/19 07/01/19 07/01/19 05:35 05:35 05:35 WBC RBC Hgb Hct MCV MCH MCHC RDW Plt Count MPV Absolute Neuts (auto) Neutrophils % Lymphocytes % Monocytes % Eosinophils % Basophils % Nucleated RBC % ESR PT with INR INR PTT (Actin FS) Sodium 139 Potassium 3.7 Chloride 106 Carbon Dioxide 27 Anion Gap 6 L BUN 10.9 Creatinine 0.8 Est GFR (CKD-EPI)AfAm 110.19 Est GFR (CKD-EPI)NonAf 95.07 POC Glucometer Random Glucose 215 H Hemoglobin A1c % Calcium 8.6 Phosphorus 2.5 Magnesium 1.9 Total Bilirubin 0.6 AST 31 ALT 40 Alkaline Phosphatase 81 Troponin I Total Protein 7.1 Albumin 3.0 L Lipase 208 Vitamin B12 1075 H Serum Folate 25 H TSH 1.80 Urine Color Urine Appearance Urine pH Ur Specific [place] Urine Protein Urine Glucose (UA) Urine Ketones Urine Blood Urine Nitrite Urine Bilirubin Urine Urobilinogen Ur Leukocyte Esterase Salicylates Opiates Screen Methadone Screen Acetaminophen Barbiturate Screen Phencyclidine Screen Ur Amphetamines Screen MDMA (Ecstasy) Screen Benzodiazepines Screen Cocaine Screen U Marijuana (THC) Screen Alcohol, Quantitative RPR Titer Nonreactive 07/01/19 07/01/19 07/01/19 05:35 05:35 07:37 WBC RBC Hgb Hct MCV MCH MCHC RDW Plt Count MPV Absolute Neuts (auto) Neutrophils % Lymphocytes % Monocytes % Eosinophils % Basophils % Nucleated RBC % ESR 9 PT with INR INR PTT (Actin FS) Sodium Potassium Chloride Carbon Dioxide Anion Gap BUN Creatinine Est GFR (CKD-EPI)AfAm Est GFR (CKD-EPI)NonAf POC Glucometer 181 Random Glucose Hemoglobin A1c % 8.9 H Calcium Phosphorus Magnesium Total Bilirubin AST ALT Alkaline Phosphatase Troponin I Total Protein Albumin Lipase Vitamin B12 Serum Folate TSH Urine Color Urine Appearance Urine pH Ur Specific [place] Urine Protein Urine Glucose (UA) Urine Ketones Urine Blood Urine Nitrite Urine Bilirubin Urine Urobilinogen Ur Leukocyte Esterase Salicylates Opiates Screen Methadone Screen Acetaminophen Barbiturate Screen Phencyclidine Screen Ur Amphetamines Screen MDMA (Ecstasy) Screen Benzodiazepines Screen Cocaine Screen U Marijuana (THC) Screen Alcohol, Quantitative RPR Titer 07/01/19 07/01/19 11:29 17:36 WBC RBC Hgb Hct MCV MCH MCHC RDW Plt Count MPV Absolute Neuts (auto) Neutrophils % Lymphocytes % Monocytes % Eosinophils % Basophils % Nucleated RBC % ESR PT with INR INR PTT (Actin FS) Sodium Potassium Chloride Carbon Dioxide Anion Gap BUN Creatinine Est GFR (CKD-EPI)AfAm Est GFR (CKD-EPI)NonAf POC Glucometer 229 132 Random Glucose Hemoglobin A1c % Calcium Phosphorus Magnesium Total Bilirubin AST ALT Alkaline Phosphatase Troponin I Total Protein Albumin Lipase Vitamin B12 Serum Folate TSH Urine Color Urine Appearance Urine pH Ur Specific [place] Urine Protein Urine Glucose (UA) Urine Ketones Urine Blood Urine Nitrite Urine Bilirubin Urine Urobilinogen Ur Leukocyte Esterase Salicylates Opiates Screen Methadone Screen Acetaminophen Barbiturate Screen Phencyclidine Screen Ur Amphetamines Screen MDMA (Ecstasy) Screen Benzodiazepines Screen Cocaine Screen U Marijuana (THC) Screen Alcohol, Quantitative RPR Titer CT brain results reviewed ASSESSMENT AND PLAN: 64 yom with PMHx of polysubstance abuse, HTN, DM, reported HIV sent from [facility] with AMS -AMS, suspect from polysubstance abuse -reported HIV -HTN -NIDDM -Old infarcts left frontal/temporoparietal region Plan: Mental status improved. Drug screen noted. patient reports last drink 2 weeks ago no acute concerns for withdrawal. resume HANG/metformin on dc, ISS. Check HIV screen, will need outpatient follow up dispo dc in 24 hours with outpatient follow up for drug rehab.
[2019-07-02] MEDS: INSULIN SLIDING SCALE (NOVOLOG) 1 VIAL SQ SCH ×3 (05:59→17:20)
[2019-07-02] MEDS ORDERED: INSULIN (NOVOLOG) ASPART 100 UNITS/ML 10ML VIAL ONE ×2 (06:03→11:38)
[2019-07-02] MEDS: FOLIC ACID 1 MG TABLET (FP) PO SCH (09:40)
[2019-07-02] MEDS: LISINOPRIL 5 MG TABLET (FP) PO SCH (09:40)
[2019-07-02] MEDS: ENOXAPARIN NA (PORCINE) 40 MG/0.4 ML DISP.SYRIN SQ SCH (09:41)
[2019-07-02] MEDS: THIAMINE HCL 100 MG TABLET (FP) PO SCH (09:41)
[2019-07-02] MEDS: MULTIVITAMINS (DAILY MVI) TABLET (FP) PO SCH (09:41)
--- NOTE | 2019-07-02 14:37 | PN ---
Teaching Attending Note Name of Resident: Ceasar Ruby ATTENDING PHYSICIAN STATEMENT I saw and evaluated the patient. I reviewed the resident's note and discussed the case with the resident. I agree with the resident's findings and plan as documented with exceptions below. SUBJECTIVE: Patient seen and examined. no complaints. OBJECTIVE: Vital Signs Period Temp Pulse Resp BP Sys/Silva Pulse Ox Last 24 Hr 97.9 F-98.4 F 61-79 18-20 110-135/62-87 96-98 Intake & Output 06/29/19 06/30/19 07/01/19 07/02/19 23:59 23:59 23:59 23:59 Intake Total 450 640 Output Total 700 900 Balance -250 -260 Weight 202 lb 203 lb 8 oz General: sitting in bed, in no acute distress Chest: CTAB, no rales or wheezing Abdomen:Soft, obese, NT Extremities: no edema Neuro: AAOx2, needed orientation with place, then able to recall, unchanged non focal exam otherwise. Home Medications Medication Instructions Recorded Lisinopril [Prinivil] 5 mg PO DAILY #30 tablet 07/02/19 Metformin HCl [Glucophage] 500 mg PO DAILY #30 tablet 07/02/19 Multivitamins [Multivit ([facility] 1 tab PO DAILY #30 tab 07/02/19 Formulary)] Active Medications Enoxaparin Sodium (Lovenox -) 40 mg SQ DAILY [facility] Last Admin: 07/02/19 09:41 Dose: 40 mg Folic Acid (Folic Acid -) 1 mg PO DAILY [facility] Last Admin: 07/02/19 09:40 Dose: 1 mg Insulin Aspart (Novolog Vial Sliding Scale -) 1 vial SQ TIDAC [facility]; Protocol Last Admin: 07/02/19 11:52 Dose: 4 unit Lisinopril (Prinivil) 5 mg PO DAILY [facility] Last Admin: 07/02/19 09:40 Dose: 5 mg Multivitamins/Minerals/Vitamin C (Tab-A-Vit -) 1 tab PO DAILY [facility] Last Admin: 07/02/19 09:41 Dose: 1 tab Thiamine HCl (Vitamin B1 -) 100 mg PO DAILY [facility] Last Admin: 07/02/19 09:41 Dose: 100 mg Laboratory Results - last 24 hr 07/01/19 07/01/19 07/01/19 05:35 05:35 17:36 WBC 5.7 Absolute Lymphs (auto) 1.9 Lymphocytes 33 Nucleated RBCs TNP POC Glucometer 132 Absolute CD3 Count 1524 % CD3+ Lymphocytes 80.2 Absolute CD4 [place] 1017 % CD4+ Lymphocyte 53.5 CD4/CD8 Ratio 2.06 % CD8+ Lymphocyte 26.0 Absolute CD8 Count 494 Hep A IgM Ab Confirm Negative Hep Bs Antigen Negative Hep B Core IgM Ab Negative Hepatitis C Ab (EIA) >11.0 H 07/02/19 07/02/19 05:56 11:49 WBC Absolute Lymphs (auto) Lymphocytes Nucleated RBCs POC Glucometer 179 242 Absolute CD3 Count % CD3+ Lymphocytes Absolute CD4 [place] % CD4+ Lymphocyte CD4/CD8 Ratio % CD8+ Lymphocyte Absolute CD8 Count Hep A IgM Ab Confirm Hep Bs Antigen Hep B Core IgM Ab Hepatitis C Ab (EIA) ASSESSMENT AND PLAN: 64 yom with PMHx of polysubstance abuse, HTN, DM, reported HIV sent from [facility] with AMS -AMS, suspect from polysubstance abuse -reported HIV -HTN -NIDDM -Old infarcts left frontal/temporoparietal region Plan: Mental status improved. Drug screen noted. No concerns for withdrawal Discussed with [facility], not a candidate for inaptient detox. patient informed of hep C blood work and need for outpatient follow up. Also HIV screen pos in 2010, patient informed CD4 noted. Discussed with Dr. bob, follow up arranged for [facility]. Resume home lisinopril/metformin Stressed need for ETOH abstinence, resources provided with outpatient alcohol rehab and stressed the need for outpatient follow up for HIV/Hep C w/u/ appropriate treatment. Dc home today.
--- NOTE | 2019-07-02 15:37 | DS ---
Physical Exam: SUBJECTIVE: Patient seen and examined at the bedside. Stated he felt good and was awake, alert, and oriented. Denied cp, sob, abd pain, n/v/c/d, fever, chills , tremors, hallucinations, anxiety, numbness, tingling. OBJECTIVE: Vital Signs Period Temp Pulse Resp BP Sys/Silva Pulse Ox Last 24 Hr 97.9 F-98.4 F 61-79 18-20 110-135/62-87 96-98 PHYSICAL EXAM GENERAL: AO X 3, alert and awake. HEAD: Normal with no signs of trauma. ENT: Oropharynx clear, moist mucus membranes, teeth missing. LUNGS: Breath sounds equal, clear to auscultation bilaterally. No wheezes, and no crackles. No accessory muscle use. HEART: Regular rate and rhythm, normal S1 and S2 without murmur, rub. ABDOMEN: Soft, nontender, not distended, normoactive bowel sounds, no guarding, no rebound, no masses. LOWER EXTREMITIES: 2+ pulses, warm, well-perfused. No calf tenderness. No peripheral edema. NEUROLOGICAL: Cranial nerves II-XII intact. Normal speech. 5/5 strength b/l upper and lower extremities with sensation intact. PSYCHIATRIC: Cooperative. Good eye contact. Appropriate mood and affect. SKIN: Warm, well perfused. LABS Laboratory Results - last 24 hr 07/01/19 07/01/19 07/01/19 05:35 05:35 17:36 WBC 5.7 Absolute Lymphs (auto) 1.9 Lymphocytes 33 Nucleated RBCs TNP POC Glucometer 132 Absolute CD3 Count 1524 % CD3+ Lymphocytes 80.2 Absolute CD4 [place] 1017 % CD4+ Lymphocyte 53.5 CD4/CD8 Ratio 2.06 % CD8+ Lymphocyte 26.0 Absolute CD8 Count 494 Hep A IgM Ab Confirm Negative Hep Bs Antigen Negative Hep B Core IgM Ab Negative Hepatitis C Ab (EIA) >11.0 H 07/02/19 07/02/19 05:56 11:49 WBC Absolute Lymphs (auto) Lymphocytes Nucleated RBCs POC Glucometer 179 242 Absolute CD3 Count % CD3+ Lymphocytes Absolute CD4 [place] % CD4+ Lymphocyte CD4/CD8 Ratio % CD8+ Lymphocyte Absolute CD8 Count Hep A IgM Ab Confirm Hep Bs Antigen Hep B Core IgM Ab Hepatitis C Ab (EIA) HOSPITAL COURSE: Ant Sands Jr is a 64 year old male with a past medical history of HTN, NIDDM, CVA, polysubstance abuse including cocaine, EtOH, benzos who presented from [facility] for altered mental status. Patient had a head CT which showed watershed (old) infarcts in temporoparietal areas with intracranial calcifications. Was given banana bag, fluids. CXR was negative for any acute process. CIWA score on admission was 0 and continued to be 0 until discharge, was not started on any detox protocol. Patient noted that he wanted resources for rehab. Chart review showed that the patient had previous positive HIV test in 2010. On this admission, CD4 count was greater than 1000. Patient was advised to go to the [facility] and appointment was set up for the patient. Hepatitis panel showed that the patient was positive for Hep C. Patient was advised to follow up with gastroenterology outpatient. Altered mental status secondary to toxic encephalopathy from polysubstance abuse resolved by the day of discharge. Patient was advised to follow up with a primary care provider and information regarding the resident's clinic was provided. Was advised to follow up with gastroenterology, [facility], neurology as well. Was provided with resources for alcohol and drug rehab. Patient was advised of the plan, was in agreement, and reiterated it. Patient was discharged in stable medical condition. Date of Admission:06/30/19 Date of Discharge: 07/02/19 Minutes to complete discharge: 35 Discharge Summary Problems reviewed: Yes Reason For Visit: ALTERED MENTAL STATUS,COCAINE DEPENDENCE Condition: Stable - Instructions Diet, Activity, Other Instructions: You were admitted to the hospital because of confusion. You were given intravenous hydration and vitamins. You had blood work done which was normal. You had a CT scan done which showed that you had old infarcts (strokes) in several parts of your brain. You should follow up with a neurologist. You were found to have positive bloodwork for Hepatitis C. You should follow up with a gas treater. Based upon previous admissions, you were found to be positive for HIV back in 2010. On this admission, we measured your T-cell (immune cell) count and found that your blood cell counts were good. However, you should still follow up for this diagnosis with your primary care doctor and in the [facility]. MEDICATIONS We made the following adjustments to your medication regimen: Please START taking 1 Multivitamin daily by mouth. Please continue to take all of your home medications as prescribed. You CANNOT drink alcohol when you are taking metformin. REFERRALS Please follow up with your primary care doctor, if you do not have a primary care doctor you can call the resident's clinic at and set up an appointment. Please follow up with the neurologist, Dr. Hany Roy, within 1 week. Pleas follow up with the gas treater, Dr. Mejia, within 1 week. Please follow up in the [facility], within 1 week. You have an appointment there on SaturdayJuly 07 at 9AM. The appointment is located at [address] [place] [address] on the 4th floor of the building. SPECIAL INSTRUCTIONS We highly recommend that you cease using all drugs and alcohol as they greatly impair your health and could lead to rodent exterminator damage to your brain, heart, kidneys, liver, and lungs. Cessation could lead to improvement in your health. DO NOT DRINK ALCOHOL WHEN YOU ARE TAKING METFORMIN. Please follow up with all your appointments. If you have any symptoms of confusion, weakness, chest pain, shortness of breath , fevers, or any other general feelings of unwellness, please call 911 or go to your nearest emergency room. Referrals: [facility] [Provider Group] - 1 Week Hany Roy MD [Staff Physician] - 1 Week Niranjan Mejia MD [Staff Physician] - 1 Week Disposition: HOME - Home Medications Comprehensive Discharge Medication List: Ambulatory Orders Lisinopril [Prinivil] 5 mg PO DAILY #30 tablet 07/02/19 Metformin HCl [Glucophage] 500 mg PO DAILY #30 tablet 07/02/19 Multivitamins [Multivit ([facility] Formulary)] 1 tab PO DAILY #30 tab 07/02/19 Problem List - Problems (1) Altered mental status Code(s): R41.82 - ALTERED MENTAL STATUS, UNSPECIFIED Qualifiers: Altered mental status type: unspecified Qualified Code(s): R41.82 - Altered mental status, unspecified (2) Alcohol dependence Code(s): F10.20 - ALCOHOL DEPENDENCE, UNCOMPLICATED Qualifiers: Substance use status: uncomplicated Qualified Code(s): F10.20 - Alcohol dependence, uncomplicated (3) Cocaine dependence Code(s): F14.20 - COCAINE DEPENDENCE, UNCOMPLICATED (4) DM2 (diabetes mellitus, type 2) Code(s): E11.9 - TYPE 2 DIABETES MELLITUS WITHOUT COMPLICATIONS (5) Essential hypertension Code(s): I10 - ESSENTIAL (PRIMARY) HYPERTENSION (6) Nicotine dependence Code(s): F17.200 - NICOTINE DEPENDENCE, UNSPECIFIED, UNCOMPLICATED Qualifiers: Nicotine product type: cigarettes Substance use status: uncomplicated Qualified Code(s): F17.210 - Nicotine dependence, cigarettes, uncomplicated (7) Old cerebrovascular accident (CVA) without late effect Code(s): Z86.73 - PRSNL HX OF TIA (TIA), AND CEREB INFRC W/O RESID DEFICITS This patient is new to me today: No Emergency Visit: Yes ED Registration Date: 06/30/19 Care time: The patient presented to the Emergency Department on the above date and was hospitalized for further evaluation of their emergent condition. Critical Care patient: No - Discharge Referral Referred to [facility] Med P.C.: No
[2019-07-03] MEDS: INSULIN SLIDING SCALE (NOVOLOG) 1 VIAL SQ SCH ×2 (06:15→11:19)
[2019-07-03] MEDS ORDERED: PT OWN MED DRAWER 7, Y5N ONE (09:25)
[2019-07-03] MEDS: LISINOPRIL 5 MG TABLET (FP) PO SCH (09:38)
[2019-07-03] MEDS: THIAMINE HCL 100 MG TABLET (FP) PO SCH (09:38)
[2019-07-03] MEDS: FOLIC ACID 1 MG TABLET (FP) PO SCH (09:38)
[2019-07-03] MEDS: MULTIVITAMINS (DAILY MVI) TABLET (FP) PO SCH (09:38)
[2019-07-03] MEDS: ENOXAPARIN NA (PORCINE) 40 MG/0.4 ML DISP.SYRIN SQ SCH (09:38)
[2019-07-03] MEDS ORDERED: INSULIN (NOVOLOG) ASPART 100 UNITS/ML 10ML VIAL ONE (11:10)
[2019-07-03 13:29] VITALS: BP 133/82; PULSE 85; TEMP 98.1
--- NOTE | 2019-07-03 14:50 | PN ---
Physical Exam: SUBJECTIVE: Patient seen and examined at the bedside. Doing well, ready for discharge to [facility]. Denied any acute complaints. ROS negative for cp, sob, abd pain, n/v/c/d, fever, chills, numbness, tingling, tremors, hallucinations. OBJECTIVE: Vital Signs Period Temp Pulse Resp BP Sys/Silva Pulse Ox Last 24 Hr 97.7 F-98.2 F 64-85 16-20 119-133/63-82 98-98 GENERAL: AO X 3, alert and awake. HEAD: Normal with no signs of trauma. ENT: Oropharynx clear, moist mucus membranes, teeth missing. LUNGS: Breath sounds equal, clear to auscultation bilaterally. No wheezes, and no crackles. No accessory muscle use. HEART: Regular rate and rhythm, normal S1 and S2 without murmur, rub. ABDOMEN: Soft, nontender, not distended, normoactive bowel sounds, no guarding, no rebound, no masses. LOWER EXTREMITIES: 2+ pulses, warm, well-perfused. No calf tenderness. No peripheral edema. NEUROLOGICAL: Cranial nerves II-XII intact. Normal speech. 5/5 strength b/l upper and lower extremities with sensation intact. PSYCHIATRIC: Cooperative. Good eye contact. Appropriate mood and affect. SKIN: Warm, well perfused. Laboratory Results - last 24 hr 07/02/19 07/03/19 07/03/19 17:19 06:09 11:08 POC Glucometer 149 170 235 ASSESSMENT/PLAN: Was awaiting bed at [facility] overnight. No acute issues. Discharge plan reviewed. Discharged in stable medical condition. Problem List - Problems (1) Altered mental status Code(s): R41.82 - ALTERED MENTAL STATUS, UNSPECIFIED Qualifiers: Altered mental status type: unspecified Qualified Code(s): R41.82 - Altered mental status, unspecified (2) Alcohol dependence Code(s): F10.20 - ALCOHOL DEPENDENCE, UNCOMPLICATED Qualifiers: Substance use status: uncomplicated Qualified Code(s): F10.20 - Alcohol dependence, uncomplicated (3) Cocaine dependence Code(s): F14.20 - COCAINE DEPENDENCE, UNCOMPLICATED (4) DM2 (diabetes mellitus, type 2) Code(s): E11.9 - TYPE 2 DIABETES MELLITUS WITHOUT COMPLICATIONS (5) Essential hypertension Code(s): I10 - ESSENTIAL (PRIMARY) HYPERTENSION (6) Nicotine dependence Code(s): F17.200 - NICOTINE DEPENDENCE, UNSPECIFIED, UNCOMPLICATED Qualifiers: Nicotine product type: cigarettes Substance use status: uncomplicated Qualified Code(s): F17.210 - Nicotine dependence, cigarettes, uncomplicated (7) Old cerebrovascular accident (CVA) without late effect Code(s): Z86.73 - PRSNL HX OF TIA (TIA), AND CEREB INFRC W/O RESID DEFICITS Visit type - Emergency Visit Emergency Visit: Yes ED Registration Date: 06/30/19 Care time: The patient presented to the Emergency Department on the above date and was hospitalized for further evaluation of their emergent condition. - New Patient This patient is new to me today: No - Critical Care Critical Care patient: No
--- NOTE | 2019-07-03 16:47 | PN ---
Teaching Attending Note Name of Resident: Ceasar Ruby ATTENDING PHYSICIAN STATEMENT I saw and evaluated the patient. I reviewed the resident's note and discussed the case with the resident. I agree with the resident's findings and plan as documented. SUBJECTIVE: Feels well - no complaints. OBJECTIVE: Afebrile, Hemodynamically Stable. Last Vital Signs Temp Pulse Resp BP Pulse Ox 98.1 F 85 18 133/82 98 07/03/19 13:27 07/03/19 13:27 07/03/19 13:27 07/03/19 13:27 07/03/19 09:00 General: comfotbale, no acute distress Chest: cleSoft, non-tender. Bowel Sounds normal. Heart - S1, S2, RRR Extremities: no calf tenderness/edema Neuro: AAOx2. tone/Power normal all 4 extremities. Laboratory Results - last 24 hr 07/01/19 07/02/19 07/03/19 05:35 17:19 06:09 POC Glucometer 149 170 HIV-1 RNA (PCR) 180 HIV-1 RNA (PCR) log10 2.255 07/03/19 11:08 POC Glucometer 235 HIV-1 RNA (PCR) HIV-1 RNA (PCR) log10 Home Medications Medication Instructions Recorded Lisinopril [Prinivil] 5 mg PO DAILY #30 tablet 07/02/19 Metformin HCl [Glucophage] 500 mg PO DAILY #30 tablet 07/02/19 Multivitamins [Multivit ([facility] 1 tab PO DAILY #30 tab 07/02/19 Formulary)] Aspirin [Aspirin EC] 81 mg PO DAILY #30 tablet. 07/03/19 ASSESSMENT AND PLAN: 64 year old male with history of polysubstance abuse, HTN, DM 2, HIV, HepC, Hx CVA, sent from [facility] with AMS sec to Polysubstance abuse, now resolved. 1. Acute Toxic Encephalopathy sec to Heroin/Cocaine Mental status cleared. no signs of withdrawal. Afebrile, Hemodynamically Stable, tolerating oral intake. 2. DM 2 - Resume Metformin on discharge 3. HTN - Continue Lisinopril 4. Hx CVA - old infarcts L frontal/temporoparietal region. CT Head - no acute findings. Neurologicaly intact. Start ASA/Statin for secondary prevention. Neuro follow up. 5. HIV/Hep C - not on treatment - for [facility] and with GI. Medically Stable for discharge to [facility] with [facility]/GI/Neuro follow ups
== END 2019-07-03 13:46 | disposition short-term general hospital (02) | DRG 52 ==
LOC: JER 20:29 → JERBED 23:24 → J6S 07-01 18:30
PROVIDERS: ADMIT Internal Medicine
PROC: HZ2ZZZZ Detoxification Services for Substance Abuse Treatment (ICD-10-PCS; principal; 2019-06-30)
DX: G92 Toxic encephalopathy (principal); F13.20 Sedative, hypnotic or anxiolytic dependence, uncomplicated; Z21 Asymptomatic human immunodeficiency virus [HIV] infection status; I10 Essential (primary) hypertension; E11.65 Type 2 diabetes mellitus with hyperglycemia; F14.20 Cocaine dependence, uncomplicated; F10.20 Alcohol dependence, uncomplicated; R41.82 Altered mental status, unspecified; G93.89 Other specified disorders of brain; Z86.73 Personal history of transient ischemic attack (TIA), and cerebral infarction without residual deficits
CPT/HCPCS: 36415; 70450-TC; 71045-TC-FY; 80053; 80074; 80307; 81003; 82607; 82746; 82962; 83036; 83690; 83735; 84100; 84443; 84484; 85025; 85027; 85610; 85651; 85730; 86359; 86360; 86593; 87389; 87536; 93005; 93010; 99285-25; J7030

== ENCOUNTER 2019-07-03 14:27 | Inpatient (IN) | payer OTHER ==
[2019-07-03 15:20] VITALS: BMI 29.8
--- NOTE | 2019-07-03 16:39 | HP ---
CIWA Score - Admission Criteria [facility]ASAS Guidelines: Admission for Medically Managed Detox: Requires at least one of the followin. CIWA greater than 12 2. Seizures within the past 24 hours 3. Delirium tremens within the past 24 hours 4. Hallucinations within the past 24 hours 5. Acute intervention needed for co occurring medical disorder 6. Acute intervention needed for co occurring psychiatric disorder 7. Severe withdrawal that cannot be handled at a lower level of care (continued vomiting, continued diarrhea, abnormal vital signs) requiring intravenous medication and/or fluids 8. 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 Cardiovascular: Yes: HTN Infectious Disease: Yes: HIV (2011- pt unaware he says) - Smoking History Smoking history: Current every day smoker Have you smoked in the past 12 months: Yes Aproximately how many cigarettes per day: 20 - Alcohol/Substance Use Hx Alcohol Use: Yes History of Substance Use: reports: Cocaine - Social History ADL: Independent History of Recent Travel: No Admission ROS S - HPI Allergies/Adverse Reactions: Allergies Allergy/AdvReac Type Severity Reaction Status Date / Time No Known Allergies Allergy Verified 07/03/19 15:10 History of Present Illness: pt here for rehab from cocaine and etoh use , s/p hospitalization for toxic encephalopathy 08/30 PSA , per hosp d/c , CD4 count was greater than 1000. Patient was advised to go to the [facility] and appointment was set up for the patient. Hepatitis panel showed that the patient was positive for Hep C. Patient was advised to follow up with gastroenterology outpatient. PMHX HTN, NIDDM, CVA head CT which showed watershed (old) infarcts in temporoparietal areas with intracranial calcifications. Exam Limitations: No Limitations - Ebola screening Have you traveled outside of the country in the last 21 days: No (N) Have you had contact with anyone from an Ebola affected area: No Do you have a fever: No - Review of Systems Constitutional: No Symptoms Reported EENT: reports: No Symptoms Reported Respiratory: reports: No Symptoms reported Cardiac: reports: No Symptoms Reported GI: reports: No Symptoms Reported : reports: No Symptoms Reported Musculoskeletal: reports: No Symptoms Reported Integumentary: reports: No Symptoms Reported Neuro: reports: No Symptoms reported Endocrine: reports: See HPI Psychiatric: reports: Orientated x3 Patient History - Patient Medical History Hx Anemia: No Hx Asthma: No Hx Chronic Obstructive Pulmonary Disease (COPD): No Hx Cancer: No Hx Cardiac Disorders: No Hx Congestive Heart Failure: No Hx Hypertension: Yes Hx Hypercholesterolemia: No Hx Pacemaker: No HX Cerebrovascular Accident: Yes (STROKE 2003--[place] Hx Seizures: No Hx Dementia: No Hx Diabetes: Yes (Type II) Hx Gastrointestinal Disorders: No Hx Liver Disease: No Hx Genitourinary Disorders: No Hx Sexually Transmitted Disorders: No Hx Renal Disease (ESRD): No Hx Thyroid Disease: No Hx Human Immunodeficiency Virus (HIV): Yes (2010 positive tests) Hx Hepatitis C: No Hx Depression: No Hx Suicide Attempt: No Hx Bipolar Disorder: No Hx Schizophrenia: No - Patient Surgical History Past Surgical History: Yes Hx Neurologic Surgery: No Hx Cataract Extraction: No Hx Cardiac Surgery: No Hx Lung Surgery: No Hx Breast Surgery: No Hx Breast Biopsy: No Hx Abdominal Surgery: No Hx Appendectomy: No Hx Cholecystectomy: No Hx Genitourinary Surgery: No Hx Section: No Hx Orthopedic Surgery: Yes (s/p surgery for fx right knee and right leg in 1998) Hx Hysterectomy: No Anesthesia Reaction: No - PPD History Date: 05/15/18 Results: NEG CXR - Smoking Cessation Smoking history: Current every day smoker Have you smoked in the past 12 months: Yes Aproximately how many cigarettes per day: 20 Cigars Per Day: 0 Hx Chewing Tobacco Use: No Initiated information on smoking cessation: Yes 'Breaking Loose' booklet given: 07/03/19 - Substances abused Alcohol Substance route: Oral Frequency: Daily Amount used: 3 pints vodka Age of first use: 16 Date of last use: 06/29/19 Crack Substance route: Smoking Frequency: Daily Amount used: 6 bags Age of first use: 52 Date of last use: 06/29/19 Cocaine Other (specify): sniff Substance route: Inhalation Frequency: No use in 30 days Amount used: 6 bags Age of first use: 30 Date of last use: 06/29/19 Admission Physical Exam [facility] - Vital Signs Vital Signs: Vital Signs - 24 hr 07/03/19 15:05 Temperature 98.1 F Pulse Rate 82 Respiratory 18 Rate Blood Pressure 188/78 H - Physical General Appearance: Yes: No Apparent Distress HEENTM: Yes: EOMI, Hearing grossly Normal, Normocephalic, Normal Voice, Other ( nostril deformity left) Respiratory: Yes: Chest Non-Tender, Lungs Clear, Normal Breath Sounds, No Respiratory Distress, No Accessory Muscle Use Neck: Yes: No masses,lesions,Nodules, Trachea in good position Cardiology: Yes: Regular Rhythm, Regular Rate, S1, S2 Abdominal: Yes: Non Tender, Soft Back: Yes: Normal Inspection Musculoskeletal: Yes: Gait Steady Extremities: Yes: Normal Range of Motion, Non-Tender Neurological: Yes: Fully Oriented, Alert, Motor Strength 5/5 Integumentary: Yes: Warm - Diagnostic (1) Alcohol dependence Current Visit: Yes Status: Chronic Qualifiers: Substance use status: uncomplicated Qualified Code(s): F10.20 - Alcohol dependence, uncomplicated (2) Cocaine dependence Current Visit: Yes Status: Chronic Comment: . (3) Nicotine dependence Current Visit: Yes Status: Chronic Qualifiers: Nicotine product type: cigarettes Substance use status: uncomplicated Qualified Code(s): F17.210 - Nicotine dependence, cigarettes, uncomplicated Comment: . Breathalyzer - Breathalyzer Breathalyzer: 0 Urine Drug Screen - Test Device Lot number: [id number] Expiration date: 02/24/21 - Control Is test valid?: Yes - Results Drug screen NEGATIVE: No Urine drug screen results: ROSALIO-Cocaine, BZO-Benzodiazepines Inpatient Rehab Admission - Rehab Decision to Admit Inpatient rehab admission?: Yes - Initial Determination Are CD services needed?: Yes Free of communicable disease: Yes Not in need of hospitalization: Yes - Rehab Admission Criteria Previous failed treatment: Yes Poor recovery environment: Yes Comorbidities: Yes Lacks judgement: Yes Patient is meeting Inpatient Rehab admission criteria:: Yes
[2019-07-03] MEDS ORDERED: MAGNESIUM HYDROX 2400MG/30ML ORAL SUSPENSION 30 ML CUP PO PRN (16:44)
[2019-07-03] MEDS ORDERED: IBUPROFEN 400 MG TABLET (FP) PO PRN (16:44)
[2019-07-03] MEDS ORDERED: BISMUTH SUBSALICYLATE 524 MG/30 ML UD PO PRN (16:44)
[2019-07-03] MEDS ORDERED: MAG HYDROX/AL HYDROX/SIMETH 30 ML UNIT-DOSE CUP PO PRN (16:44)
[2019-07-03] MEDS ORDERED: hydrOXYzine PAMOATE 25 MG CAPSULE (FP) PO PRN (16:44)
[2019-07-03] MEDS ORDERED: MAGNESIUM CITRATE 300 ML BOTTLE PO PRN (16:44)
[2019-07-03] MEDS ORDERED: ACETAMINOPHEN 325 MG TABLET (FP) PO PRN ×2 (16:44)
[2019-07-03] MEDS: ASPIRIN 81 MG CHEWABLE TABLETS PO SCH (19:17)
[2019-07-03] MEDS: THIAMINE HCL 100 MG TABLET (FP) PO SCH (21:22)
[2019-07-03] MEDS: MELATONIN 5 MG TABLETS PO PRN (21:22)
[2019-07-04] MEDS: metFORMIN HCL 500 MG TABLET (FP) PO SCH (06:25)
[2019-07-04] MEDS: LISINOPRIL 5 MG TABLET (FP) PO SCH (10:21)
[2019-07-04] MEDS: PRENATAL VITAMINS W/ FOLIC ACID TABLET (FP) PO SCH (10:21)
[2019-07-04] MEDS: ASPIRIN 81 MG CHEWABLE TABLETS PO SCH (10:21)
[2019-07-04] MEDS: THIAMINE HCL 100 MG TABLET (FP) PO SCH (21:10)
[2019-07-05] MEDS: MENTHOL/PHENOL 1 EACH UD MM PRN ×3 (01:36→10:16)
[2019-07-05] MEDS: metFORMIN HCL 500 MG TABLET (FP) PO SCH (06:06)
[2019-07-05] MEDS: LISINOPRIL 5 MG TABLET (FP) PO SCH (10:14)
[2019-07-05] MEDS: ASPIRIN 81 MG CHEWABLE TABLETS PO SCH (10:14)
[2019-07-05] MEDS: PRENATAL VITAMINS W/ FOLIC ACID TABLET (FP) PO SCH (10:14)
[2019-07-05] MEDS: guaiFENesin 200 MG/10 ML 10 ML UNIT-DOSE CUPS PO PRN ×2 (16:45→21:40)
[2019-07-05] MEDS: THIAMINE HCL 100 MG TABLET (FP) PO SCH (21:08)
[2019-07-06] MEDS: metFORMIN HCL 500 MG TABLET (FP) PO SCH (06:11)
[2019-07-06] MEDS: guaiFENesin 200 MG/10 ML 10 ML UNIT-DOSE CUPS PO PRN (10:46)
[2019-07-06] MEDS: PRENATAL VITAMINS W/ FOLIC ACID TABLET (FP) PO SCH (10:46)
[2019-07-06] MEDS: ASPIRIN 81 MG CHEWABLE TABLETS PO SCH (10:46)
[2019-07-06] MEDS: LISINOPRIL 5 MG TABLET (FP) PO SCH (10:46)
--- NOTE | 2019-07-06 13:17 | PN ---
[facility] Progress Note Note: Pt is a 64 y/o male with a hx of MATTHEW with multiple admissions to this facility here in rehab. Discharge from [address] [place] [address] here last on 04/06/19 to 04/16/19. Pt has been in detox since after then in April and . Vital Signs 07/06/19 07/06/19 07:13 09:34 Temperature 98.2 F Pulse Rate 91 H 85 Respiratory 18 Rate Blood Pressure 137/91 131/71 A/P New rehab pt Maintain safety
[2019-07-06] MEDS: THIAMINE HCL 100 MG TABLET (FP) PO SCH (21:17)
[2019-07-07] MEDS: MENTHOL/PHENOL 1 EACH UD MM PRN (04:00)
[2019-07-07] MEDS: metFORMIN HCL 500 MG TABLET (FP) PO SCH (06:42)
[2019-07-07] MEDS: guaiFENesin 200 MG/10 ML 10 ML UNIT-DOSE CUPS PO PRN ×2 (06:43→16:49)
[2019-07-07] MEDS: ASPIRIN 81 MG CHEWABLE TABLETS PO SCH (10:37)
[2019-07-07] MEDS: LISINOPRIL 5 MG TABLET (FP) PO SCH (10:37)
[2019-07-07] MEDS: PRENATAL VITAMINS W/ FOLIC ACID TABLET (FP) PO SCH (10:37)
--- NOTE | 2019-07-07 11:00 | PN ---
[facility] Progress Note (SOAP) Subjective: pt c/o unproductive cough and reports he received cough medicine earlier and felt better. Pt denies runny nose, sorethroat, fever, headache,nausea or vomiting. Objective: 07/07/19 10:57 Vital Signs - 24 hr 07/07/19 07/07/19 07/07/19 00:30 03:30 07:43 Temperature 97.8 F Pulse Rate 70 Respiratory 18 18 18 Rate Blood Pressure 132/84 Laboratory Tests 07/04/19 07/04/19 07/05/19 06:23 16:54 06:05 POC Glucometer 186 234 155 07/05/19 07/06/19 07/06/19 16:43 06:09 16:53 POC Glucometer 159 215 268 07/07/19 06:40 POC Glucometer 191 alert o x 3 nad oob ambulating with steady gait In good spirit Heent:Normocephalic;perrla,eomi,no pharyngeal redness or swelling cardiac:s1 s2,rrr lungs;cta,handy. Abdomen:soft,+bs,nt,nd 07/07/19 11:02 Assessment: 07/07/19 11:00 unproductive cough Plan: Robitussin as directed Increase fluid intake as tolerated warm tea with honey
[2019-07-07] MEDS ORDERED: INSULIN (NOVOLOG) ASPART 100 UNITS/ML 10ML VIAL ONE (17:26)
[2019-07-07] MEDS: INSULIN SLIDING SCALE (NOVOLOG) 1 VIAL SQ SCH ×2 (17:39→21:06)
[2019-07-07] MEDS: THIAMINE HCL 100 MG TABLET (FP) PO SCH (21:06)
[2019-07-08] MEDS ORDERED: INSULIN (NOVOLOG) ASPART 100 UNITS/ML 10ML VIAL ONE ×2 (06:48→22:01)
[2019-07-08] MEDS: metFORMIN HCL 500 MG TABLET (FP) PO SCH (06:49)
[2019-07-08] MEDS: guaiFENesin 200 MG/10 ML 10 ML UNIT-DOSE CUPS PO PRN ×2 (06:50→21:17)
[2019-07-08] MEDS: INSULIN SLIDING SCALE (NOVOLOG) 1 VIAL SQ SCH ×4 (07:30→21:17)
[2019-07-08] MEDS: LISINOPRIL 5 MG TABLET (FP) PO SCH (10:24)
[2019-07-08] MEDS: PRENATAL VITAMINS W/ FOLIC ACID TABLET (FP) PO SCH (10:24)
[2019-07-08] MEDS: ASPIRIN 81 MG CHEWABLE TABLETS PO SCH (10:24)
[2019-07-08] MEDS: THIAMINE HCL 100 MG TABLET (FP) PO SCH (21:16)
[2019-07-09] MEDS: guaiFENesin 200 MG/10 ML 10 ML UNIT-DOSE CUPS PO PRN ×2 (06:49→21:26)
[2019-07-09] MEDS: metFORMIN HCL 500 MG TABLET (FP) PO SCH (06:49)
[2019-07-09] MEDS: INSULIN SLIDING SCALE (NOVOLOG) 1 VIAL SQ SCH ×4 (06:49→21:26)
[2019-07-09] MEDS: LISINOPRIL 5 MG TABLET (FP) PO SCH (10:13)
[2019-07-09] MEDS: PRENATAL VITAMINS W/ FOLIC ACID TABLET (FP) PO SCH (10:13)
[2019-07-09] MEDS: ASPIRIN 81 MG CHEWABLE TABLETS PO SCH (10:13)
[2019-07-09] MEDS ORDERED: INSULIN (NOVOLOG) ASPART 100 UNITS/ML 10ML VIAL ONE ×3 (11:56→21:56)
[2019-07-09] MEDS: THIAMINE HCL 100 MG TABLET (FP) PO SCH (21:26)
[2019-07-10] MEDS: metFORMIN HCL 500 MG TABLET (FP) PO SCH (06:36)
[2019-07-10] MEDS: INSULIN SLIDING SCALE (NOVOLOG) 1 VIAL SQ SCH ×4 (06:37→21:21)
[2019-07-10] MEDS: guaiFENesin 200 MG/10 ML 10 ML UNIT-DOSE CUPS PO PRN ×2 (06:38→21:22)
[2019-07-10] MEDS: PRENATAL VITAMINS W/ FOLIC ACID TABLET (FP) PO SCH (09:35)
[2019-07-10] MEDS: ASPIRIN 81 MG CHEWABLE TABLETS PO SCH (09:35)
[2019-07-10] MEDS: LISINOPRIL 5 MG TABLET (FP) PO SCH (09:35)
[2019-07-10] MEDS ORDERED: INSULIN (NOVOLOG) ASPART 100 UNITS/ML 10ML VIAL ONE ×3 (12:09→21:43)
[2019-07-10] MEDS: THIAMINE HCL 100 MG TABLET (FP) PO SCH (21:23)
[2019-07-11] MEDS: metFORMIN HCL 500 MG TABLET (FP) PO SCH (06:19)
[2019-07-11] MEDS: INSULIN SLIDING SCALE (NOVOLOG) 1 VIAL SQ SCH ×4 (06:19→22:03)
[2019-07-11] MEDS: ASPIRIN 81 MG CHEWABLE TABLETS PO SCH (09:44)
[2019-07-11] MEDS: LISINOPRIL 5 MG TABLET (FP) PO SCH (09:44)
[2019-07-11] MEDS: PRENATAL VITAMINS W/ FOLIC ACID TABLET (FP) PO SCH (09:44)
[2019-07-11] MEDS ORDERED: INSULIN (NOVOLOG) ASPART 100 UNITS/ML 10ML VIAL ONE ×3 (12:04→22:03)
[2019-07-11] MEDS: guaiFENesin 200 MG/10 ML 10 ML UNIT-DOSE CUPS PO PRN (14:15)
[2019-07-11] MEDS: THIAMINE HCL 100 MG TABLET (FP) PO SCH (22:04)
[2019-07-12] MEDS: metFORMIN HCL 500 MG TABLET (FP) PO SCH (06:44)
[2019-07-12] MEDS: guaiFENesin 200 MG/10 ML 10 ML UNIT-DOSE CUPS PO PRN (07:10)
[2019-07-12] MEDS: INSULIN SLIDING SCALE (NOVOLOG) 1 VIAL SQ SCH ×4 (07:53→21:22)
[2019-07-12] MEDS ORDERED: INSULIN (NOVOLOG) ASPART 100 UNITS/ML 10ML VIAL ONE (07:54)
[2019-07-12] MEDS: LISINOPRIL 5 MG TABLET (FP) PO SCH (10:02)
[2019-07-12] MEDS: ASPIRIN 81 MG CHEWABLE TABLETS PO SCH (10:02)
[2019-07-12] MEDS: PRENATAL VITAMINS W/ FOLIC ACID TABLET (FP) PO SCH (10:02)
[2019-07-12] MEDS: THIAMINE HCL 100 MG TABLET (FP) PO SCH (21:23)
[2019-07-12] MEDS: MELATONIN 5 MG TABLETS PO PRN (21:23)
[2019-07-13] MEDS: metFORMIN HCL 500 MG TABLET (FP) PO SCH (06:49)
[2019-07-13] MEDS: guaiFENesin 200 MG/10 ML 10 ML UNIT-DOSE CUPS PO PRN ×2 (06:50→21:17)
[2019-07-13] MEDS: INSULIN SLIDING SCALE (NOVOLOG) 1 VIAL SQ SCH ×4 (06:51→21:16)
[2019-07-13] MEDS: ASPIRIN 81 MG CHEWABLE TABLETS PO SCH (10:20)
[2019-07-13] MEDS: PRENATAL VITAMINS W/ FOLIC ACID TABLET (FP) PO SCH (10:20)
[2019-07-13] MEDS: LISINOPRIL 5 MG TABLET (FP) PO SCH (10:21)
[2019-07-13] MEDS ORDERED: INSULIN (NOVOLOG) ASPART 100 UNITS/ML 10ML VIAL ONE ×3 (11:54→21:56)
[2019-07-13] MEDS: MELATONIN 5 MG TABLETS PO PRN (21:17)
[2019-07-13] MEDS: THIAMINE HCL 100 MG TABLET (FP) PO SCH (21:17)
[2019-07-14] MEDS: INSULIN SLIDING SCALE (NOVOLOG) 1 VIAL SQ SCH ×4 (06:54→21:23)
[2019-07-14] MEDS: guaiFENesin 200 MG/10 ML 10 ML UNIT-DOSE CUPS PO PRN ×2 (06:56→20:03)
[2019-07-14] MEDS: PRENATAL VITAMINS W/ FOLIC ACID TABLET (FP) PO SCH (10:02)
[2019-07-14] MEDS: LISINOPRIL 5 MG TABLET (FP) PO SCH (10:02)
[2019-07-14] MEDS: metFORMIN HCL 500 MG TABLET (FP) PO SCH (10:03)
[2019-07-14] MEDS: ASPIRIN 81 MG CHEWABLE TABLETS PO SCH (10:03)
[2019-07-14] MEDS ORDERED: INSULIN (NOVOLOG) ASPART 100 UNITS/ML 10ML VIAL ONE ×2 (17:06→22:02)
[2019-07-14] MEDS: THIAMINE HCL 100 MG TABLET (FP) PO SCH (21:22)
[2019-07-15] MEDS: INSULIN SLIDING SCALE (NOVOLOG) 1 VIAL SQ SCH ×4 (07:03→21:24)
[2019-07-15] MEDS: metFORMIN HCL 500 MG TABLET (FP) PO SCH (07:03)
[2019-07-15] MEDS: guaiFENesin 200 MG/10 ML 10 ML UNIT-DOSE CUPS PO PRN ×2 (07:04→21:25)
[2019-07-15] MEDS: ASPIRIN 81 MG CHEWABLE TABLETS PO SCH (10:21)
[2019-07-15] MEDS: LISINOPRIL 5 MG TABLET (FP) PO SCH (10:21)
[2019-07-15] MEDS: PRENATAL VITAMINS W/ FOLIC ACID TABLET (FP) PO SCH (10:21)
[2019-07-15] MEDS ORDERED: INSULIN (NOVOLOG) ASPART 100 UNITS/ML 10ML VIAL ONE (12:08)
[2019-07-15] MEDS: THIAMINE HCL 100 MG TABLET (FP) PO SCH (21:25)
[2019-07-16] MEDS: guaiFENesin 200 MG/10 ML 10 ML UNIT-DOSE CUPS PO PRN ×2 (06:14→21:23)
[2019-07-16] MEDS: metFORMIN HCL 500 MG TABLET (FP) PO SCH (06:14)
[2019-07-16] MEDS: INSULIN SLIDING SCALE (NOVOLOG) 1 VIAL SQ SCH ×4 (07:28→21:22)
[2019-07-16] MEDS: PRENATAL VITAMINS W/ FOLIC ACID TABLET (FP) PO SCH (10:34)
[2019-07-16] MEDS: ASPIRIN 81 MG CHEWABLE TABLETS PO SCH (10:34)
[2019-07-16] MEDS: LISINOPRIL 5 MG TABLET (FP) PO SCH (10:34)
[2019-07-16] MEDS ORDERED: INSULIN (NOVOLOG) ASPART 100 UNITS/ML 10ML VIAL ONE ×2 (11:46→22:05)
--- NOTE | 2019-07-16 14:36 | DS ---
[facility] Rehab Discharge Summary - [facility] Rehab Discharge Summary Admission Date: 07/03/19 Discharge Date: 07/17/19 - History Present History: Alcohol dependence, Cocaine dependence Additional Comments: Pt is a 64 y/o male with a hx of MATTHEW with multiple admissions to this facility admitted to rehab and discharging on 07/17/19. Discharged from [address] [place] [address] here last on 04/06/19 to 04/16/19. Pt has been in detox since after then in April and . Pt is homeless and has met with his counselor Ms Gaby Rodrigues, referred pt to [facility]. Pt was also connected to [facility] in [facility] for CD aftercare. On review of admission H/P, the [facility] ED made appointment for patient to follow up with medical care at [facility] ID clinic for dx of HIV+ dx since 2010(pt denied on admissions). Pt is a very poor historian and has difficulty expressing or remembering events. However, pt is restricted to [facility] and/or [facility] for medical care per [facility] staff Ms Webb who informed keno writer today about the referral to [facility] and the restriction. Pertinent Past History: HTN(on meds) Type 2 DM(on meds) Old CVA Hep C HIV+(since 2010, no current meds) - Discharge Physical Exam Vital Signs: Vital Signs Temperature 98.3 F 07/16/19 07:05 Pulse Rate 94 H 07/16/19 07:05 Respiratory Rate 18 07/16/19 07:05 Blood Pressure 150/97 07/16/19 07:05 O2 Sat by Pulse Oximetry (%) Alert o x 3, denies s/h/i nad oob ambulating with steady gait Heent:Normocephalic,perrla,eomi,pharynx wnl,edentulous cardiac;s1 s2, rrr lungs:cta, bilateral abdomen:soft,+bs,nt,nd extremities/Skin:no edema,full ROM/weight bearing,skin intact. Pertinent Admission Physical Exam Findings: Laboratory Tests 07/04/19 07/04/19 07/05/19 06:23 16:54 06:05 POC Glucometer 186 234 155 07/05/19 07/06/19 07/06/19 16:43 06:09 16:53 POC Glucometer 159 215 268 07/07/19 07/07/19 07/07/19 06:40 16:47 20:31 POC Glucometer 191 281 223 07/08/19 07/08/19 07/08/19 06:45 12:17 17:01 POC Glucometer 267 241 208 07/08/19 07/09/19 07/09/19 20:39 06:47 11:41 POC Glucometer 204 197 293 07/09/19 07/09/19 07/10/19 16:48 20:44 06:35 POC Glucometer 255 260 172 07/10/19 07/10/19 07/10/19 11:47 16:17 20:21 POC Glucometer 332 220 254 07/11/19 07/11/19 07/11/19 06:17 11:50 17:18 POC Glucometer 189 291 289 07/11/19 07/12/19 07/12/19 22:00 06:43 11:57 POC Glucometer 308 205 185 07/12/19 07/12/19 07/13/19 16:36 20:34 06:48 POC Glucometer 248 262 175 07/13/19 07/13/19 07/13/19 11:25 16:23 20:12 POC Glucometer 213 258 238 07/14/19 07/14/19 07/14/19 06:53 11:37 16:50 POC Glucometer 184 209 270 07/14/19 07/15/19 07/15/19 20:02 07:01 11:46 POC Glucometer 244 193 294 07/15/19 07/15/19 07/16/19 16:35 20:15 06:12 POC Glucometer 212 275 186 07/16/19 07/16/19 07/16/19 11:45 16:48 20:06 POC Glucometer 247 205 312 07/17/19 05:48 POC Glucometer 193 - Treatment Discharge Condition: Discharge condition good Hospital Course: As per admission H/P: {pt here for rehab from cocaine and etoh use , s/p hospitalization for toxic encephalopathy 2/2 PSA , per hosp d/c , CD4 count was greater than 1000. Patient was advised to go to the [facility] and appointment was set up for the patient. Hepatitis panel showed that the patient was positive for Hep C. Patient was advised to follow up with gastroenterology outpatient. Head CT which showed watershed (old) infarcts in temporoparietal areas with intracranial calcifications}. Pt's Rehab stay was safe and stable and pt participated in groups and individual meetings with counselor. - Medication Discharge Medications: Ambulatory Orders Lisinopril [Prinivil] 5 mg PO DAILY #30 tablet 07/02/19 Metformin HCl [Glucophage] 500 mg PO DAILY #30 tablet 07/02/19 Multivitamins [Multivit ([facility] Formulary)] 1 tab PO DAILY #30 tab 07/02/19 Aspirin [Aspirin EC] 81 mg PO DAILY #30 tablet. 07/03/19 - Medication-Assisted Treatment (MAT) Medication-Assisted Treatment (MAT): No - Discharge Instructions Diet, activity, other medical instructions: Diet:NCS/AILEEN Activity: oob ad nikky Other medical instructions:follow up with primary care at [facility] within 1-2 weeks after discharge. Follow up with aftercare as scheduled. - Diagnosis (1) Alcohol dependence Status: Chronic Qualifiers: Substance use status: uncomplicated Qualified Code(s): F10.20 - Alcohol dependence, uncomplicated (2) Cocaine dependence Status: Chronic (3) Nicotine dependence Status: Chronic Qualifiers: Nicotine product type: cigarettes Substance use status: uncomplicated Qualified Code(s): F17.210 - Nicotine dependence, cigarettes, uncomplicated (4) DM2 (diabetes mellitus, type 2) Status: Chronic (5) Essential hypertension Status: Chronic (6) Old cerebrovascular accident (CVA) without late effect Status: Chronic (7) Hepatitis C Status: Chronic Qualifiers: Viral hepatitis chronicity: unspecified - Follow-up Referral Minutes to complete discharge: 20 - AMA Did Patient Leave Against Medical Advice: No Additional Comments: Pt has Rx meds waiting to be picked up from [facility] pharmacy for discharge.
[2019-07-16] MEDS: THIAMINE HCL 100 MG TABLET (FP) PO SCH (21:21)
[2019-07-17] MEDS: metFORMIN HCL 500 MG TABLET (FP) PO SCH (06:51)
[2019-07-17 07:08] VITALS: BP 164/102; PULSE 64; TEMP 97.4
[2019-07-17] MEDS: INSULIN SLIDING SCALE (NOVOLOG) 1 VIAL SQ SCH (07:56)
[2019-07-17] MEDS: ASPIRIN 81 MG CHEWABLE TABLETS PO SCH (09:04)
[2019-07-17] MEDS: PRENATAL VITAMINS W/ FOLIC ACID TABLET (FP) PO SCH (09:04)
[2019-07-17] MEDS: LISINOPRIL 5 MG TABLET (FP) PO SCH (09:04)
--- NOTE | 2019-07-17 11:03 | PN ---
S Progress Note Note: Pt was discharged today as scheduled. Pt was reminded to follow up with all scheduled recommended referrals. Pt verbalized understanding. Vital Signs - 24 hr 07/17/19 07/17/19 07/17/19 00:30 03:30 07:08 Temperature 97.4 F L Pulse Rate 64 Respiratory 18 18 18 Rate Blood Pressure 164/102 H Alert o x 3,denies s/h/i nad oob ambulating with steady gait cardiac:s1 s2, rrr lungs:cta,handy. neuro:intact A/P Medically stable D/c pt today.
== END 2019-07-17 09:30 | disposition home or self-care (01) | DRG 772 ==
LOC: YASAS 14:27 → Y5N 17:21 → Y3W 07-11 10:27 → Y5N 07-11 10:28
PROVIDERS: ADMIT Neuromusculoskeletal Medicine & OMM; ATTEND Neuromusculoskeletal Medicine & OMM
PROC: HZ42ZZZ Group Counseling for Substance Abuse Treatment, Cognitive-Behavioral (ICD-10-PCS; principal; 2019-07-03)
DX: F10.20 Alcohol dependence, uncomplicated (principal); F14.20 Cocaine dependence, uncomplicated; F17.210 Nicotine dependence, cigarettes, uncomplicated; I10 Essential (primary) hypertension; E11.9 Type 2 diabetes mellitus without complications; R05 Cough; Z21 Asymptomatic human immunodeficiency virus [HIV] infection status; Z86.73 Personal history of transient ischemic attack (TIA), and cerebral infarction without residual deficits; Z59.0 Homelessness
CPT/HCPCS: 82962

== ENCOUNTER 2019-08-26 15:04 | Emergency (ER) | payer OTHER ==
[2019-08-26 15:39] VITALS: BMI 29.5
[2019-08-26] MEDS ORDERED: SODIUM CHLORIDE 1,000 ML IV SCH (15:45)
[2019-08-26 17:01] LABS: BASO % 0.8 % (0-2.0); EOS % 1.9 % (0-4.5); HEMATOCRIT 43.1 % (35.4-49); HEMOGLOBIN 14.6 GM/dL (11.7-16.9); LYMPH % 37.9 % (8-40); MCH 31.2 pg (25.7-33.7); MEAN CELL VOLUME 91.8 fl (80-96); MONO % 14.9 % (3.8-10.2); NEUT % 44.5 % (42.8-82.8); PLATELET COUNT 404 K/MM3 (134-434); RBC 4.69 M/mm3 (4.00-5.60); RDW 12.5 % (11.9-15.9)
[2019-08-26 17:12] LABS: INR 0.95 (0.83-1.09); PROTHROMBIN TIME (PATIENT) 11.2 SEC (9.7-13.0)
[2019-08-26 17:15] LABS: ACTIVATED PTT 32.4 SECONDS (25.2-36.5)
[2019-08-26 17:58] LABS: ALBUMIN 3.6 g/dl (3.4-5.0); ALK PHOS 73 U/L (45-117); ANION GAP 8 MMOL/L (8-16); BILIRUBIN,TOTAL 0.9 mg/dL (0.2-1); BLOOD UREA NITROGEN 20.8 mg/dL (7-18); CALCIUM 8.9 mg/dL (8.5-10.1); CHLORIDE 101 mmol/L (98-107); CHOLESTEROL 158 mg/dL (50-200); CO2 26 mmol/L (21-32); GLUCOSE,RANDOM 184 mg/dL (74-106); HDL CHOLESTEROL 50 mg/dL (40-60); LDL CHOLESTEROL (ONLY SJRH) 98 mg/dL (5-100); POTASSIUM 4.1 mmol/L (3.5-5.1); SGOT/AST 34 U/L (15-37); SGPT/ALT 47 U/L (13-61); SODIUM 135 mmol/L (136-145); TOT PROT 8.1 g/dl (6.4-8.2); TRIGLYCERIDES 76 mg/dL (0-150)
[2019-08-26] MEDS ORDERED: chlordiazePOXIDE HCL 25 MG CAPSULE PO ONE (18:14)
--- NOTE | 2019-08-26 18:16 | PDOC ---
Documentation entered by Surekha Orantes SCRIBE, acting as scribe for Loretta Hsieh MD. Loretta Hsieh MD: This documentation has been prepared by the Lamberto gtz Nirvannie, SCRIBE, under my direction and personally reviewed by me in its entirety. I confirm that the documentation accurately reflects all work, treatment, procedures, and medical decision making performed by me. Attending Attestation - Resident Resident Name: Valerie Canales - ED Attending Attestation I have performed the following: I have examined & evaluated the patient, The case was reviewed & discussed with the resident, I agree w/resident's findings & plan, Exceptions are as noted - HPI HPI: 08/26/19 17:09 HPI: The patient is a 64YOM with a significant past medical history of alcohol abuse , HTN, NIDDM, CVA presenting with via EMS from [facility] with slurred speech. As per [facility], patient was being evaluated by their team for admission to detox at which time he was found to be slurring his speech. While in the ED, patient is mumbling his speech. Denies fever, chills, chest pain, SOB, palpitation, dizziness, weakness, N, V, D , abdominal pain, bladder and bowel problems, focal weakness/paresthesias, leg swelling/pain, rash. No sick contacts or travel. No new changes in medications. No suspicious food intake Allergies: None Past Medical History/PSH: alcohol abuse, HTN, NIDDM, CVA Social history: Undomiciled. No tobacco, ETOH or drug use. Meds: as documented in EMR Family history: noncontributory - Physicial Exam PE: 08/26/19 18:15 Agree with the resident's HPI and PE as documented in the electronic medical record. NAD, well appearing, EOMI, PERRL, nl conjunctiva, anicteric; neck supple. lungs clear, RRR, abdomen soft nontender. no rebound, guarding. Back nontender. ALONSO x4, no focal neuro deficits. No peripheral edema. normal color for ethnicity , WWP. - Medical Decision Making 08/26/19 18:15 Vital Signs Temp Pulse Resp BP Pulse Ox 98.2 F 100 H 19 143/100 96 08/26/19 15:10 08/26/19 15:10 08/26/19 15:10 08/26/19 15:10 08/26/19 15:10 ddx. intoxication,, ETOH, withdrawal, cocaine, amphetamines, benzo abuse dehydration, electrolyte/metabolic derangements Laboratory results are within normal limits, no evidence of anemia, electrolytes are within normal limits. Troponin is negative, CK is mildly elevated but nonsignificant. Negative alcohol, U tox, given Librium here given history of alcohol abuse and pending detox CT head negative for any intracranial ab normality, chronic left cerebral infarcts are noticed, chronic microvascular ischemic changes are seen, some sinusitis seen in the left maxillary sinus. Otherwise unremarkable studies DC back to [facility], as this is likely pt's baseline, alert and oriented, follows commands and unremarkable imaging/labs. for detox tx continuation. 08/28/19 07:39 Heart Score/ECG Review #1 ECG reviewed & interpreted by me at: 15:50 General ECG Interpretation: Sinus Rhythm, Normal Rate, Normal Intervals 08/26/19 18:18 EKG normal sinus rhythm 95 bpm, no interval abnormalities, narrow QRS, ST and T wave segments and morphology normal. Nonspecific T wave abnormalities
--- NOTE | 2019-08-26 18:19 | PDOC ---
History of Present Illness - General Chief Complaint: CVA/TIA Stated Complaint: CVA Time Seen by Provider: 08/26/19 15:22 - History of Present Illness Initial Comments: Ant Sands Jr is a 64yo man with a PMH of HIV, HTN, CVA (2003), alcohol abuse who presents from detox intake with concerns for slurred speech. Mr Sands reports that his speech sounds the same as always, and he is upset that he was sent to the ED rather than admitted at detox. He denies any other complaints, fall, recent injury, headache, or other symptoms. Past History - Past Medical History Allergies/Adverse Reactions: Allergies Allergy/AdvReac Type Severity Reaction Status Date / Time No Known Allergies Allergy Verified 08/26/19 13:31 Home Medications: Ambulatory Orders Aspirin [Aspirin EC] 81 mg PO DAILY #30 tablet. 07/03/19 Amlodipine Besylate 10 mg PO DAILY 08/26/19 Metformin HCl [Glucophage] 1,000 mg PO DAILY 08/26/19 Anemia: No Asthma: No Cancer: No Cardiac Disorders: No CVA: Yes (STROKE 2003--[place], [place]) COPD: No CHF: No Dementia: No Diabetes: Yes (Type II) GI Disorders: No Disorders: No HTN: Yes Hypercholesterolemia: No Kidney Stones: No Liver Disease: No Seizures: No Thyroid Disease: No - Surgical History Abdominal Surgery: No Appendectomy: No Cardiac Surgery: No Cholecystectomy: No Lung Surgery: No Neurologic Surgery: No Orthopedic Surgery: Yes (s/p surgery for fx right knee and right leg in 1998) - Reproductive History Testicular Surgery: No - Psycho Social/Smoking Cessation Hx Smoking History: Unknown if ever smoked Have you smoked in the past 12 months: No Number of Cigarettes Smoked Daily: 20 Cigars Per Day: 0 'Breaking Loose' booklet given: 07/03/19 Hx Alcohol Use: Yes Drug/Substance Use Hx: Yes Substance Use Type: Alcohol, Cocaine Hx Substance Use Treatment: Yes Review of Systems - Review of Systems Comments:: General: No fevers, no chills, no weight or appetite change, no malaise HEENT: No changes in vision, no changes in hearing, no congestion, no sore throat CV: No chest pain, no palpitations, no LE edema Pulm: No SOB, no cough, no wheezing GI: No nausea or vomiting, no change in bowel habits, no melena : No frequency, no urgency, no dysuria Musc: No back pain, no joint swelling, no recent injury Skin: No rash, no lesions, no erythema Endo: No excessive thirst, no heat/cold intolerance Heme: No unusual bruising or bleeding, no swollen glands Neuro: No syncope, no numbness/tingling, no focal weakness. +h/o CVA Vasc: No claudication Psych: No recent change in mood, no SI or HI *Physical Exam - Vital Signs Last Vital Signs Temp Pulse Resp BP Pulse Ox 98.2 F 100 H 19 143/100 96 08/26/19 15:10 08/26/19 15:10 08/26/19 15:10 08/26/19 15:10 08/26/19 15:10 - Physical Exam General: Comfortable, no acute distress HEENT: Atraumatic. Missing teeth. PERRL, EOMI, MMM, normal neck ROM, no LAD Cards: RRR, no murmur appreciated Pulm: Comfortable on room air, clear to auscultation bilaterally Abd: Soft, nontender, nondistended : No CVA tenderness Ext: Atraumatic. No LE edema. ROM intact. WWP Skin: Normal color, no rashes or lesions Neuro: A&Ox3, CN grossly intact, mumbling speech, motor/sensory grossly intact and symmetric Psych: Mood appropriate to situation NIH Stroke Scale - Last Known Well Date/Time & Onset Date Last Known Well: 08/26/19 (Pt states he is currently at baseline) - Initial Evaluation Level of consciousness: Alert Ask patient the month and their age: Answers both correctly Ask patient to open & close eyes; make fist and let go: Obeys both correctly Best gaze (horizontal eye movement): Normal Visual field testing: No visual field loss Facial paresis (Show teeth/raise eyebrows/close eyes tight): Normal symmetrical movement Motor Function: Left Arm: Normal Motor Function: Right Arm: Normal (extends arm 90 (or 45) degrees for 10 seconds without drift Motor Function: Left Leg: Normal (extends leg 30 degrees for 5 seconds without drift) Motor Function: Right Leg: Normal (extends leg 30 degrees for 5 seconds without drift) Limb Ataxia: No ataxia Sensory(Use pinprick test arms,legs,trunk,face/side to side): Normal Best language (Describe picture, name items, read sentences): No Aphasia Dysarthria (read several words): Mild to moderate slurring of words (Missing teeth, not wearing denture) Extinction and Inattention: No abnormality - Total Score NIH Stroke Scale Score: 1 Critical Care Time/MDM Note - Medical Decision Making Note: 08/26/19 18:15 Ant Sands Jr is a 64yo man with a PMH of HIV, HTN, CVA (2003), alcohol abuse who presents from detox intake with concerns for slurred speech. He reports that he is at baseline. - Mumbling, slurred speech on initial exam - CVA workup ordered. - CT head without acute abnormalities; notes prior stroke - Labs unremarkable - Pt observed ambuliating in the ED without any difficulty. Has been awake, alert, with no complaints since arrival. Plan to d/c back to detox. Discussed with Dr Мария Canales PGY2 Discharge - Discharge Information Problems reviewed: Yes Clinical Impression/Diagnosis: Slurring of speech Condition: Stable Disposition: HOME - Follow up/Referral Referrals: [facility] [place] [Provider Group] - Patient Discharge Instructions Additional Instructions: Discharge Instructions: You were seen in the emergency department for slurred speech. Your workup did not show any concerning changes. Please go directly back to detox. Seek immediate medical care for any worsening symptoms, one-sided weakness, confusion, difficulty speaking, chest pain, difficulty breathing, or any other medical emergency. - Post Discharge Activity
[2019-08-26] MEDS ORDERED: chlordiazePOXIDE HCL 25 MG CAPSULE ONE (19:58)
[2019-08-26 20:53] VITALS: BP 136/88; PULSE 88; TEMP 98.5
--- NOTE | 2019-08-27 12:42 | EKG ---
Test Reason : Blood Pressure : / mmHG Vent. Rate : 095 BPM Atrial Rate : 095 BPM P-R Int : 162 ms QRS Dur : 080 ms QT Int : 356 ms P-R-T Axes : 022 012 022 degrees QTc Int : 447 ms NORMAL SINUS RHYTHM NORMAL ECG WHEN COMPARED WITH ECG OF 30-JUN-2019 22:02, NONSPECIFIC T WAVE ABNORMALITY, IMPROVED IN LATERAL LEADS Confirmed by RONNIE BUSTAMANTE MD ([id number]) on 08/27/2019 12:41:51 PM Referred By: Confirmed By:RONNIE BUSTAMANTE MD
== END 2019-08-26 20:55 | disposition home or self-care (01) ==
LOC: JER 15:04
DX: R47.81 Slurred speech (principal); Z21 Asymptomatic human immunodeficiency virus [HIV] infection status; I10 Essential (primary) hypertension; Z86.73 Personal history of transient ischemic attack (TIA), and cerebral infarction without residual deficits; F10.10 Alcohol abuse, uncomplicated
CPT/HCPCS: 36415; 70450-TC; 80053; 80061; 80307; 82550; 82553; 83721; 84484; 85025; 85610; 85730; 86850; 86900; 86901; 93005; 93010; 99283-25; J7030

== ENCOUNTER 2019-08-29 13:18 | Inpatient (IN) | payer OTHER ==
[2019-08-29 15:45] VITALS: BMI 29.5
[2019-08-29] MEDS ORDERED: diazePAM 5 MG TABLET PO PRN (16:19)
--- NOTE | 2019-08-29 16:19 | HP ---
CIWA Score Nausea/Vomitin-No Nausea/No Vomiting Muscle Tremors: 1-None Visible, but [place] Anxiety: 1-Mildly Anxious Agitation: 1-Slight > Activity Paroxysmal Sweats: No Perspiration Orientation: 3-Disoriented Date>2 days Tacttile Disturbances: 0-None Auditory Disturbances: 0-None Visual Disturbances: 0-None Headache: 0-None Present CIWA-Ar Total Score: 6 - Admission Criteria OASAS Guidelines: Admission for Medically Managed Detox: Requires at least one of the followin. CIWA greater than 12 2. Seizures within the past 24 hours 3. Delirium tremens within the past 24 hours 4. Hallucinations within the past 24 hours 5. Acute intervention needed for co occurring medical disorder 6. Acute intervention needed for co occurring psychiatric disorder 7. Severe withdrawal that cannot be handled at a lower level of care (continued vomiting, continued diarrhea, abnormal vital signs) requiring intravenous medication and/or fluids 8. 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 Cardiovascular: Yes: HTN Infectious Disease: Yes: HIV (2010- pt unaware he says) - Smoking History Smoking history: Unknown if ever smoked Have you smoked in the past 12 months: No Aproximately how many cigarettes per day: 20 - Alcohol/Substance Use Hx Alcohol Use: Yes History of Substance Use: reports: Cocaine - Social History ADL: Independent History of Recent Travel: No Admission ROS [facility] - HPI Allergies/Adverse Reactions: Allergies Allergy/AdvReac Type Severity Reaction Status Date / Time No Known Allergies Allergy Verified 08/29/19 15:36 History of Present Illness: 64 y.o. male pt here for detox from cocaine and etoh use , s/p hospitalization for toxic encephalopathy , reports drinking 4 pints/day , latest use yesterday . PMHX HTN, NIDDM, CVA head CT which showed watershed (old) infarcts in temporoparietal areas with intracranial calcifications. Exam Limitations: Clinical Condition - Review of Systems Constitutional: Loss of Appetite, Other (slurred speech) Respiratory: reports: No Symptoms reported Cardiac: reports: No Symptoms Reported GI: reports: No Symptoms Reported : reports: No Symptoms Reported Musculoskeletal: reports: No Symptoms Reported Integumentary: reports: No Symptoms Reported Neuro: reports: Pre-Existing Deficit Endocrine: reports: See HPI Psychiatric: reports: Disorientated Patient History - Patient Medical History Hx Anemia: No Hx Asthma: No Hx Chronic Obstructive Pulmonary Disease (COPD): No Hx Cancer: No Hx Cardiac Disorders: No Hx Congestive Heart Failure: No Hx Hypertension: Yes Hx Hypercholesterolemia: No Hx Pacemaker: No HX Cerebrovascular Accident: Yes (STROKE 2003--[place], [place]) Hx Seizures: No Hx Dementia: No Hx Diabetes: Yes (Type II) Hx Gastrointestinal Disorders: No Hx Liver Disease: No Hx Genitourinary Disorders: No Hx Sexually Transmitted Disorders: No Hx Renal Disease (ESRD): No Hx Thyroid Disease: No Hx Human Immunodeficiency Virus (HIV): Yes (2010 positive tests) Hx Hepatitis C: No Hx Depression: No Hx Suicide Attempt: No Hx Bipolar Disorder: No Hx Schizophrenia: No - Patient Surgical History Past Surgical History: Yes Hx Neurologic Surgery: No Hx Cataract Extraction: No Hx Cardiac Surgery: No Hx Lung Surgery: No Hx Breast Surgery: No Hx Breast Biopsy: No Hx Abdominal Surgery: No Hx Appendectomy: No Hx Cholecystectomy: No Hx Genitourinary Surgery: No Hx Section: No Hx Orthopedic Surgery: Yes (s/p surgery for fx right knee and right leg in 1998) Hx Hysterectomy: No Anesthesia Reaction: No - PPD History Date: 05/15/18 Results: NEG CXR - Smoking Cessation Smoking history: Unknown if ever smoked Have you smoked in the past 12 months: No Aproximately how many cigarettes per day: 20 Cigars Per Day: 0 Hx Chewing Tobacco Use: No Initiated information on smoking cessation: No - Substances abused Alcohol Substance route: Oral Frequency: 3-6 times per week Amount used: 4 BOTTLES OF VODKA Age of first use: 16 Date of last use: 08/28/19 Crack Substance route: Smoking Frequency: 3-6 times per week Amount used: $20 Age of first use: 30 Date of last use: 08/28/19 Admission Physical Exam [facility] - Vital Signs Vital Signs: Vital Signs - 24 hr 08/29/19 15:42 Temperature 99.0 F Pulse Rate 109 H Respiratory 20 Rate Blood Pressure 153/93 - Physical General Appearance: Yes: Disheveled, Mild Distress, Anxious HEENTM: Yes: EOMI, Hearing grossly Normal, Normocephalic, Other (slurred speech) Respiratory: Yes: Chest Non-Tender, Lungs Clear, Normal Breath Sounds, No Respiratory Distress, No Accessory Muscle Use Neck: Yes: No masses,lesions,Nodules, Trachea in good position Cardiology: Yes: Regular Rhythm, Regular Rate, S1, S2, Tachycardia Abdominal: Yes: Non Tender, Soft Musculoskeletal: Yes: Gait Steady Extremities: Yes: Normal Range of Motion, Non-Tender Neurological: Yes: Alert, Motor Strength 5/5, Disoriented, Depressed Affect Integumentary: Yes: Warm - Diagnostic (1) Alcohol dependence Current Visit: Yes Status: Chronic Qualifiers: Substance use status: uncomplicated Qualified Code(s): F10.20 - Alcohol dependence, uncomplicated (2) Cocaine dependence Current Visit: Yes Status: Chronic Comment: . Breathalyzer - Breathalyzer Breathalyzer: 0 Urine Drug Screen - Test Device Lot number: [id number] Expiration date: 02/24/21 - Control Is test valid?: Yes - Results Drug screen NEGATIVE: No Urine drug screen results: ROSALIO-Cocaine, BZO-Benzodiazepines Inpatient Rehab Admission - Rehab Decision to Admit Inpatient rehab admission?: No
[2019-08-29] MEDS ORDERED: MAGNESIUM HYDROX 2400MG/30ML ORAL SUSPENSION 30 ML CUP PO PRN (16:22)
[2019-08-29] MEDS ORDERED: BISMUTH SUBSALICYLATE 524 MG/30 ML UD PO PRN (16:22)
[2019-08-29] MEDS ORDERED: MAG HYDROX/AL HYDROX/SIMETH 30 ML UNIT-DOSE CUP PO PRN (16:22)
[2019-08-29] MEDS ORDERED: MENTHOL/PHENOL 1 EACH UD MM PRN (16:22)
[2019-08-29] MEDS ORDERED: hydrOXYzine PAMOATE 25 MG CAPSULE (FP) PO PRN (16:22)
[2019-08-29] MEDS ORDERED: MAGNESIUM CITRATE 300 ML BOTTLE PO PRN (16:22)
[2019-08-29] MEDS ORDERED: IBUPROFEN 400 MG TABLET (FP) PO PRN (16:22)
[2019-08-29] MEDS ORDERED: METOPROLOL TARTRATE 25 MG TABLET (FP) PO ONE (17:15)
[2019-08-29] MEDS ORDERED: diazePAM 5 MG TABLET PO ONE (17:15)
[2019-08-29] MEDS: ASPIRIN COATED 81 MG TABLET.EC PO SCH (17:57)
[2019-08-29] MEDS: amLODIPine BESYLATE 10 MG TABLET (FP) PO SCH (17:57)
[2019-08-29] MEDS: metFORMIN HCL 500 MG TABLET (FP) PO SCH (17:57)
[2019-08-29] MEDS: diazePAM 5 MG TABLET PO SCH (21:24)
[2019-08-29] MEDS: THIAMINE HCL 100 MG TABLET (FP) PO SCH (21:24)
[2019-08-29] MEDS ORDERED: MELATONIN 5 MG TABLETS PO PRN (22:00)
[2019-08-30] MEDS: diazePAM 5 MG TABLET PO SCH ×3 (06:11→21:26)
[2019-08-30] MEDS: metFORMIN HCL 500 MG TABLET (FP) PO SCH ×2 (06:11→17:17)
[2019-08-30] MEDS: amLODIPine BESYLATE 10 MG TABLET (FP) PO SCH (10:30)
[2019-08-30] MEDS: PRENATAL VITAMINS W/ FOLIC ACID TABLET (FP) PO SCH (10:30)
[2019-08-30] MEDS: ASPIRIN COATED 81 MG TABLET.EC PO SCH (10:30)
--- NOTE | 2019-08-30 21:08 | PN ---
[facility] CIWA - CIWA Score Nausea/Vomitin-No Nausea/No Vomiting Muscle Tremors: 1-None Visible, but [place] Anxiety: 1-Mildly Anxious Agitation: 1-Slight > Activity Paroxysmal Sweats: 1-Minimal Palms Moist Orientation: 0-Oriented Tacttile Disturbances: 0-None Auditory Disturbances: 0-None Visual Disturbances: 0-None Headache: 2-Mild CIWA-Ar Total Score: 6 BHS Progress Note (SOAP) Subjective: PATIENT ADMITTED FOR ETOH WITHDRAWAL SX. ROS: " I FEEL BETTER." MILDLY ANXIOUS, RESTLESS. C/O INTERRUPTED SLEEP, NIGHT SWEATS Objective: 08/30/19 21:06 Laboratory Tests 08/29/19 08/30/19 08/30/19 17:57 06:11 16:35 POC Glucometer 197 259 285 Vital Signs Period Temp Pulse Resp BP Sys/Silva Pulse Ox Last 24 Hr 96 F-97.9 F 93-105 16-20 126-152/88-94 PE ALERT AND ORIENTED X 3 SKIN, PALMS MOIST CAR S1S2 RESP CTA BL EXT MILD TREMORS FELT ANXIOUS Assessment: 08/30/19 21:07 ETOH W/D SX DM Plan: CONTINUE DETOX FOR D/C IN AM
[2019-08-30] MEDS: THIAMINE HCL 100 MG TABLET (FP) PO SCH (21:26)
[2019-08-31] MEDS ORDERED: diazePAM 5 MG TABLET PO ONE (06:00)
[2019-08-31] MEDS: metFORMIN HCL 500 MG TABLET (FP) PO SCH (06:12)
[2019-08-31 07:09] VITALS: BP 136/83; PULSE 103; TEMP 97.9
--- NOTE | 2019-08-31 09:02 | DS ---
[facility] Detox Discharge Summary Admission Date: 08/29/19 Discharge Date: 08/31/19 - History Present History: Alcohol Dependence, Cocaine Dependence - Physical Exam Results Vital Signs: Vital Signs Temperature 97.9 F 08/31/19 07:07 Pulse Rate 103 H 08/31/19 07:07 Respiratory Rate 18 08/31/19 07:07 Blood Pressure 136/83 08/31/19 07:07 O2 Sat by Pulse Oximetry (%) Pertinent Admission Physical Exam Findings: Vital Signs Temperature 97.9 F 08/31/19 07:07 Pulse Rate 103 H 08/31/19 07:07 Respiratory Rate 18 08/31/19 07:07 Blood Pressure 136/83 08/31/19 07:07 O2 Sat by Pulse Oximetry (%) Laboratory Tests 08/29/19 08/30/19 08/30/19 17:57 06:11 16:35 POC Glucometer 197 259 285 08/31/19 05:51 POC Glucometer 236 aaox3 ambulating no acute distress - Treatment Hospital Course: Detox Protocol Followed, Detoxed Safely, Responded well, Discharged Condition Good, Rehab Referral Accepted - Medication Discharge Medications: Ambulatory Orders Amlodipine Besylate 10 mg PO DAILY 08/26/19 Metformin HCl [Glucophage] 1,000 mg PO Q12H 08/26/19 Aspirin [Aspirin EC] 81 mg PO DAILY 14 Days #14 tablet. 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 insulin use: unspecified readers' advisory service librarian insulin use status Diabetes mellitus complication status: without complication Qualified Code(s): E11.9 - Type 2 diabetes mellitus without complications (4) Essential hypertension Current Visit: Yes Status: Chronic (5) Hepatitis C Current Visit: Yes Status: Chronic Qualifiers: Viral hepatitis chronicity: unspecified Hepatic coma status: without hepatic coma Qualified Code(s): B19.20 - Unspecified viral hepatitis C without hepatic coma (6) History of positive PPD Current Visit: No Status: Chronic (7) Nicotine dependence Current Visit: Yes Status: Chronic Qualifiers: Nicotine product type: cigarettes Substance use status: uncomplicated Qualified Code(s): F17.210 - Nicotine dependence, cigarettes, uncomplicated (8) Old cerebrovascular accident (CVA) without late effect Current Visit: No Status: Chronic (9) Alcohol dependence with uncomplicated withdrawal Current Visit: Yes Status: Chronic (10) Altered mental status Current Visit: No Status: Resolved Qualifiers: Altered mental status type: unspecified Qualified Code(s): R41.82 - Altered mental status, unspecified - AMA Did Patient Leave Against Medical Advice: No
[2019-08-31] MEDS: ASPIRIN COATED 81 MG TABLET.EC PO SCH (10:09)
[2019-08-31] MEDS: PRENATAL VITAMINS W/ FOLIC ACID TABLET (FP) PO SCH (10:09)
[2019-08-31] MEDS: amLODIPine BESYLATE 10 MG TABLET (FP) PO SCH (10:09)
== END 2019-08-31 10:40 | disposition home or self-care (01) | DRG 774 ==
LOC: YASAS 13:18 → Y6N 17:13
PROVIDERS: ADMIT Allergy & Immunology; ATTEND Allergy & Immunology
PROC: HZ2ZZZZ Detoxification Services for Substance Abuse Treatment (ICD-10-PCS; principal; 2019-08-29)
DX: F10.230 Alcohol dependence with withdrawal, uncomplicated (principal); F14.20 Cocaine dependence, uncomplicated; F17.210 Nicotine dependence, cigarettes, uncomplicated; Z21 Asymptomatic human immunodeficiency virus [HIV] infection status; E11.9 Type 2 diabetes mellitus without complications; Z79.4 Long term (current) use of insulin; B19.20 Unspecified viral hepatitis C without hepatic coma; R76.11 Nonspecific reaction to tuberculin skin test without active tuberculosis; Z79.82 Long term (current) use of aspirin; Z86.73 Personal history of transient ischemic attack (TIA), and cerebral infarction without residual deficits; R47.81 Slurred speech; Z59.0 Homelessness
CPT/HCPCS: 82962

== ENCOUNTER 2022-11-09 14:57 | Inpatient (IN) | payer OTHER ==
[2022-11-09 15:22] VITALS: BMI 25.4
[2022-11-09] MEDS ORDERED: BISMUTH SUBSALICYLATE 524 MG/30 ML PO PRN (17:17)
[2022-11-09] MEDS ORDERED: MAGNESIUM HYDROX 2400MG/30ML ORAL SUSPENSION 30 ML CUP PO PRN (17:17)
[2022-11-09] MEDS ORDERED: POLYETHYLENE GLYCOL (HEALTHYLAX) 3350 17 GM PACKET PO PRN (17:17)
[2022-11-09] MEDS ORDERED: NALOXONE HCL (KLOXXADO) 8 MG SPRAY NS PRN (17:17)
[2022-11-09] MEDS ORDERED: NALOXONE HCL 0.4 MG/ML VIAL IM PRN (17:17)
[2022-11-09] MEDS ORDERED: BENZONATATE 200 MG CAPSULE PO PRN (17:17)
[2022-11-09] MEDS ORDERED: IBUPROFEN 400 MG TABLET (FP) PO PRN (17:17)
[2022-11-09] MEDS ORDERED: BACLOFEN 10 MG TABLET (FP) PO PRN (17:17)
[2022-11-09] MEDS ORDERED: MAG HYDROX/AL HYDROX/SIMETH 30 ML UNIT-DOSE CUP PO PRN (17:17)
[2022-11-09] MEDS ORDERED: BENZOCAINE/MENTHOL (CHLORASEPTIC ) LOZENGE MM PRN (17:17)
[2022-11-09] MEDS ORDERED: ACETAMINOPHEN 325 MG TABLET (FP) PO PRN (17:17)
[2022-11-09] MEDS ORDERED: IBUPROFEN 600 MG TABLET (FP) PO PRN (17:17)
[2022-11-09] MEDS ORDERED: NICOTINE 10 MG CARTRIDGE (INHALER) IH PRN (17:17)
[2022-11-09] MEDS ORDERED: ONDANSETRON *ODT* 4 MG TABLET SL PRN (17:17)
[2022-11-09] MEDS ORDERED: guaiFENesin 600 MG TABLET.ER (FP) PO PRN (17:17)
[2022-11-09] MEDS ORDERED: DICYCLOMINE HCL 10 MG CAPSULE PO PRN (17:17)
[2022-11-09] MEDS ORDERED: LOPERAMIDE HCL 2 MG CAPSULE PO PRN (17:17)
[2022-11-09] MEDS: hydrOXYzine PAMOATE 25 MG CAPSULE (FP) PO PRN (22:48)
[2022-11-09] MEDS: MELATONIN 5 MG TABLETS PO SCH (22:48)
[2022-11-09] MEDS: THIAMINE HCL 100 MG TABLET (FP) PO SCH (22:48)
[2022-11-10 10:12] LABS: HEMATOCRIT 32.1 % (35.4-49); HEMOGLOBIN 11.1 GM/dL (11.7-16.9); MCH 31.6 pg (25.7-33.7); MCHC 34.5 g/dl (32.0-35.9); MEAN CELL VOLUME 91.7 fl (80-96); MEAN PLT VOLUME 7.8 fl (7.5-11.1); PLATELET COUNT 384 10^3/uL (134-434); RDW 15.3 % (11.9-15.9); WHITE BLOOD COUNT 6.3 K/mm3 (4.0-10.0)
[2022-11-10 10:17] LABS: BLOOD UREA NITROGEN 20.1 mg/dL (7-18); CALCIUM 8.4 mg/dL (8.5-10.1)
[2022-11-10] MEDS: ASPIRIN COATED 81 MG TABLET.EC PO SCH (10:19)
[2022-11-10] MEDS: PRENATAL VITAMINS W/ FOLIC ACID TABLET (FP) PO SCH (10:19)
[2022-11-10] MEDS: hydrOXYzine PAMOATE 25 MG CAPSULE (FP) PO PRN ×2 (10:19→22:20)
[2022-11-10] MEDS: amLODIPine BESYLATE 10 MG TABLET (FP) PO SCH (10:19)
[2022-11-10 10:20] LABS: ALBUMIN 3.2 g/dl (3.4-5.0)
[2022-11-10] MEDS: NICOTINE 7 MG/24 HOURS TOPICAL PATCH TD SCH (10:20)
[2022-11-10 10:21] LABS: CREATININE 1.1 mg/dL (0.55-1.3)
[2022-11-10] MEDS: metFORMIN HCL 500 MG TABLET (FP) PO SCH ×2 (10:21→17:06)
[2022-11-10 10:22] LABS: BILIRUBIN,TOTAL 0.6 mg/dL (0.2-1); TOT PROT 7.1 g/dl (6.4-8.2)
[2022-11-10] MEDS: THIAMINE HCL 100 MG TABLET (FP) PO SCH (22:20)
[2022-11-10] MEDS: MELATONIN 5 MG TABLETS PO SCH (22:20)
[2022-11-11 06:28] VITALS: BP 136/86; PULSE 74; RESP 16; TEMP 97.3
[2022-11-11] MEDS: metFORMIN HCL 500 MG TABLET (FP) PO SCH (06:34)
[2022-11-11] MEDS: NICOTINE 7 MG/24 HOURS TOPICAL PATCH TD SCH (10:01)
[2022-11-11] MEDS: ASPIRIN COATED 81 MG TABLET.EC PO SCH (10:01)
[2022-11-11] MEDS: amLODIPine BESYLATE 10 MG TABLET (FP) PO SCH (10:01)
[2022-11-11] MEDS: PRENATAL VITAMINS W/ FOLIC ACID TABLET (FP) PO SCH (10:01)
== END 2022-11-11 10:11 | disposition other institution (70) | DRG 897 ==
LOC: YASAS 14:57 → Y6N 17:13 → UNDOADMIN 17:13 → UNDODISIN 11-11 10:11
PROVIDERS: ADMIT Allergy & Immunology; ATTEND Surgery
PROC: HZ2ZZZZ Detoxification Services for Substance Abuse Treatment (ICD-10-PCS; principal; 2022-11-09)
DX: F10.230 Alcohol dependence with withdrawal, uncomplicated (principal); F14.20 Cocaine dependence, uncomplicated; F17.210 Nicotine dependence, cigarettes, uncomplicated; Z21 Asymptomatic human immunodeficiency virus [HIV] infection status; I10 Essential (primary) hypertension; E11.9 Type 2 diabetes mellitus without complications; Z79.84 Long term (current) use of oral hypoglycemic drugs; B18.2 Chronic viral hepatitis C; I69.820 Aphasia following other cerebrovascular disease; Z86.11 Personal history of tuberculosis; Z59.00 Homelessness unspecified; Z28.310 Unvaccinated for COVID-19; Z28.9 Immunization not carried out for unspecified reason
CPT/HCPCS: 36415; 80053; 82962; 85027; 86780; C9803-CS; U0003; U0005

== ENCOUNTER 2023-05-31 12:20 | Inpatient (IN) | payer OTHER ==
[2023-05-31 12:39] VITALS: BMI 24.0
[2023-05-31] MEDS ORDERED: NALOXONE HCL (KLOXXADO) 8 MG SPRAY NS PRN (13:33)
[2023-05-31] MEDS ORDERED: IBUPROFEN 600 MG TABLET (FP) PO PRN (13:33)
[2023-05-31] MEDS ORDERED: guaiFENesin 600 MG TABLET.ER (FP) PO PRN (13:33)
[2023-05-31] MEDS ORDERED: hydrOXYzine PAMOATE 25 MG CAPSULE (FP) PO PRN (13:33)
[2023-05-31] MEDS ORDERED: NALOXONE HCL 0.4 MG/ML VIAL IM PRN (13:33)
[2023-05-31] MEDS ORDERED: LOPERAMIDE HCL 2 MG CAPSULE PO PRN (13:33)
[2023-05-31] MEDS ORDERED: MAG HYDROX/AL HYDROX/SIMETH 30 ML UNIT-DOSE CUP PO PRN (13:33)
[2023-05-31] MEDS ORDERED: ACETAMINOPHEN 325 MG TABLET (FP) PO PRN (13:33)
[2023-05-31] MEDS ORDERED: COLLOIDAL OATMEAL 1 BAR EACH TP PRN (13:33)
[2023-05-31] MEDS ORDERED: BENZOCAINE/MENTHOL (CHLORASEPTIC ) LOZENGE MM PRN (13:33)
[2023-05-31] MEDS ORDERED: IBUPROFEN 400 MG TABLET (FP) PO PRN (13:33)
[2023-05-31] MEDS ORDERED: POLYETHYLENE GLYCOL (HEALTHYLAX) 3350 17 GM PACKET PO PRN (13:33)
[2023-05-31] MEDS ORDERED: BENZONATATE 200 MG CAPSULE PO PRN (13:33)
[2023-05-31] MEDS ORDERED: MAGNESIUM HYDROX 2400MG/30ML ORAL SUSPENSION 30 ML CUP PO PRN (13:33)
[2023-05-31] MEDS: metFORMIN HCL 500 MG TABLET (FP) PO SCH (17:21)
[2023-05-31] MEDS: PRENATAL VITAMINS W/ FOLIC ACID TABLET (FP) PO SCH (17:21)
[2023-05-31] MEDS: THIAMINE HCL 100 MG TABLET (FP) PO SCH (21:27)
[2023-05-31] MEDS: MELATONIN 5 MG TABLETS PO SCH (21:27)
[2023-06-01] MEDS: metFORMIN HCL 500 MG TABLET (FP) PO SCH ×2 (06:38→16:42)
[2023-06-01] MEDS: PRENATAL VITAMINS W/ FOLIC ACID TABLET (FP) PO SCH (09:58)
[2023-06-01] MEDS: ASPIRIN 81 MG CHEWABLE TABLETS PO SCH (09:58)
[2023-06-01] MEDS: amLODIPine BESYLATE 10 MG TABLET (FP) PO SCH (09:58)
[2023-06-01 10:14] LABS: CHLORIDE 109 mmol/L (98-107); POTASSIUM 4.7 mmol/L (3.5-5.1); SODIUM 140 mmol/L (136-145)
[2023-06-01 10:26] LABS: ALBUMIN 3.2 g/dl (3.4-5.0); ANION GAP 4 mmol/L (4-13); BLOOD UREA NITROGEN 22.6 mg/dL (7-18); CO2 27 mmol/L (21-32); GLUCOSE,RANDOM 170 mg/dL (74-106)
[2023-06-01 10:27] LABS: CALCIUM 9.1 mg/dL (8.5-10.1)
[2023-06-01 10:29] LABS: SGOT/AST 33 U/L (15-37); SGPT/ALT 37 U/L (13-61)
[2023-06-01 10:30] LABS: BILIRUBIN,TOTAL 0.5 mg/dL (0.2-1); TOT PROT 7.2 g/dl (6.4-8.2)
[2023-06-01 10:32] LABS: ALK PHOS 99 U/L (45-117)
[2023-06-01 11:02] LABS: HEMATOCRIT 31.8 % (35.4-49); HEMOGLOBIN 9.1 GM/dL (11.7-16.9); MCH 21.2 pg (25.7-33.7); MCHC 28.6 g/dl (32.0-35.9); MEAN CELL VOLUME 74.1 fl (80-96); PLATELET COUNT 383 10^3/uL (134-434); RBC 4.29 M/mm3 (4.00-5.60); RDW 19.2 % (11.9-15.9); WHITE BLOOD COUNT 4.7 K/mm3 (4.0-10.0)
[2023-06-01 11:40] LABS: SYPHILIS W/ RPR CONF NON-REACTIVE (NONREACTIVE)
[2023-06-01] MEDS: THIAMINE HCL 100 MG TABLET (FP) PO SCH (21:12)
[2023-06-01] MEDS: MELATONIN 5 MG TABLETS PO SCH (21:12)
[2023-06-02] MEDS: metFORMIN HCL 500 MG TABLET (FP) PO SCH ×2 (06:11→16:40)
[2023-06-02] MEDS: ASPIRIN 81 MG CHEWABLE TABLETS PO SCH (09:49)
[2023-06-02] MEDS: amLODIPine BESYLATE 10 MG TABLET (FP) PO SCH (09:49)
[2023-06-02] MEDS: PRENATAL VITAMINS W/ FOLIC ACID TABLET (FP) PO SCH (09:50)
[2023-06-02] MEDS: FERROUS SO4 325 MG TABLET (FP) PO SCH (16:40)
[2023-06-02] MEDS ORDERED: ASCORBIC ACID 500 MG TABLET (FP) PO SCH (17:00)
[2023-06-02] MEDS: THIAMINE HCL 100 MG TABLET (FP) PO SCH (21:26)
[2023-06-02] MEDS: MELATONIN 5 MG TABLETS PO SCH (21:26)
[2023-06-02] MEDS: ASCORBIC ACID 250 MG TABLET (FP) PO SCH (21:46)
[2023-06-03] MEDS: metFORMIN HCL 500 MG TABLET (FP) PO SCH ×2 (06:05→16:35)
[2023-06-03] MEDS: PRENATAL VITAMINS W/ FOLIC ACID TABLET (FP) PO SCH (10:12)
[2023-06-03] MEDS: ASCORBIC ACID 250 MG TABLET (FP) PO SCH (10:13)
[2023-06-03] MEDS: FERROUS SO4 325 MG TABLET (FP) PO SCH (10:13)
[2023-06-03] MEDS: ASPIRIN 81 MG CHEWABLE TABLETS PO SCH (10:13)
[2023-06-03] MEDS: amLODIPine BESYLATE 10 MG TABLET (FP) PO SCH (10:13)
[2023-06-03] MEDS: MELATONIN 5 MG TABLETS PO SCH (21:11)
[2023-06-03] MEDS: THIAMINE HCL 100 MG TABLET (FP) PO SCH (21:11)
[2023-06-04] MEDS: metFORMIN HCL 500 MG TABLET (FP) PO SCH ×2 (06:26→16:48)
[2023-06-04] MEDS: ASCORBIC ACID 250 MG TABLET (FP) PO SCH (09:35)
[2023-06-04] MEDS: ASPIRIN 81 MG CHEWABLE TABLETS PO SCH (09:35)
[2023-06-04] MEDS: amLODIPine BESYLATE 10 MG TABLET (FP) PO SCH (09:35)
[2023-06-04] MEDS: FERROUS SO4 325 MG TABLET (FP) PO SCH (09:36)
[2023-06-04] MEDS: PRENATAL VITAMINS W/ FOLIC ACID TABLET (FP) PO SCH (09:36)
[2023-06-04] MEDS: THIAMINE HCL 100 MG TABLET (FP) PO SCH (21:35)
[2023-06-04] MEDS: MELATONIN 5 MG TABLETS PO SCH (21:35)
[2023-06-05] MEDS: metFORMIN HCL 500 MG TABLET (FP) PO SCH ×2 (06:06→16:57)
[2023-06-05] MEDS: ASPIRIN 81 MG CHEWABLE TABLETS PO SCH (10:01)
[2023-06-05] MEDS: amLODIPine BESYLATE 10 MG TABLET (FP) PO SCH (10:02)
[2023-06-05] MEDS: ASCORBIC ACID 250 MG TABLET (FP) PO SCH (10:02)
[2023-06-05] MEDS: FERROUS SO4 325 MG TABLET (FP) PO SCH (10:02)
[2023-06-05] MEDS: PRENATAL VITAMINS W/ FOLIC ACID TABLET (FP) PO SCH (10:02)
[2023-06-05] MEDS: THIAMINE HCL 100 MG TABLET (FP) PO SCH (21:07)
[2023-06-05] MEDS: MELATONIN 5 MG TABLETS PO SCH (21:07)
[2023-06-06] MEDS: metFORMIN HCL 500 MG TABLET (FP) PO SCH ×2 (06:09→16:27)
[2023-06-06] MEDS: FERROUS SO4 325 MG TABLET (FP) PO SCH (10:11)
[2023-06-06] MEDS: ASCORBIC ACID 250 MG TABLET (FP) PO SCH (10:11)
[2023-06-06] MEDS: amLODIPine BESYLATE 10 MG TABLET (FP) PO SCH (10:11)
[2023-06-06] MEDS: ASPIRIN 81 MG CHEWABLE TABLETS PO SCH (10:11)
[2023-06-06] MEDS: PRENATAL VITAMINS W/ FOLIC ACID TABLET (FP) PO SCH (10:11)
[2023-06-06] MEDS: THIAMINE HCL 100 MG TABLET (FP) PO SCH (21:08)
[2023-06-06] MEDS: MELATONIN 5 MG TABLETS PO SCH (21:08)
[2023-06-07] MEDS: metFORMIN HCL 500 MG TABLET (FP) PO SCH ×2 (06:14→16:51)
[2023-06-07] MEDS: amLODIPine BESYLATE 10 MG TABLET (FP) PO SCH (10:03)
[2023-06-07] MEDS: FERROUS SO4 325 MG TABLET (FP) PO SCH (10:03)
[2023-06-07] MEDS: PRENATAL VITAMINS W/ FOLIC ACID TABLET (FP) PO SCH (10:03)
[2023-06-07] MEDS: ASPIRIN 81 MG CHEWABLE TABLETS PO SCH (10:03)
[2023-06-07] MEDS: ASCORBIC ACID 250 MG TABLET (FP) PO SCH (11:54)
[2023-06-07] MEDS: MELATONIN 5 MG TABLETS PO SCH (21:15)
[2023-06-07] MEDS: THIAMINE HCL 100 MG TABLET (FP) PO SCH (21:15)
[2023-06-08] MEDS: metFORMIN HCL 500 MG TABLET (FP) PO SCH ×2 (06:10→16:21)
[2023-06-08] MEDS: FERROUS SO4 325 MG TABLET (FP) PO SCH (09:41)
[2023-06-08] MEDS: ASPIRIN 81 MG CHEWABLE TABLETS PO SCH (09:41)
[2023-06-08] MEDS: amLODIPine BESYLATE 10 MG TABLET (FP) PO SCH (09:42)
[2023-06-08] MEDS: PRENATAL VITAMINS W/ FOLIC ACID TABLET (FP) PO SCH (09:42)
[2023-06-08] MEDS: ASCORBIC ACID 250 MG TABLET (FP) PO SCH (09:42)
[2023-06-08] MEDS: THIAMINE HCL 100 MG TABLET (FP) PO SCH (21:03)
[2023-06-08] MEDS: MELATONIN 5 MG TABLETS PO SCH (21:03)
[2023-06-09] MEDS: metFORMIN HCL 500 MG TABLET (FP) PO SCH ×2 (06:04→16:31)
[2023-06-09] MEDS: ASCORBIC ACID 250 MG TABLET (FP) PO SCH (10:12)
[2023-06-09] MEDS: FERROUS SO4 325 MG TABLET (FP) PO SCH (10:12)
[2023-06-09] MEDS: PRENATAL VITAMINS W/ FOLIC ACID TABLET (FP) PO SCH (10:12)
[2023-06-09] MEDS: amLODIPine BESYLATE 10 MG TABLET (FP) PO SCH (10:12)
[2023-06-09] MEDS: ASPIRIN 81 MG CHEWABLE TABLETS PO SCH (10:12)
[2023-06-09] MEDS: THIAMINE HCL 100 MG TABLET (FP) PO SCH (21:07)
[2023-06-09] MEDS: MELATONIN 5 MG TABLETS PO SCH (21:07)
[2023-06-10] MEDS: metFORMIN HCL 500 MG TABLET (FP) PO SCH (06:14)
[2023-06-10 06:47] VITALS: RESP 16; TEMP 97.6
[2023-06-10] MEDS: ASPIRIN 81 MG CHEWABLE TABLETS PO SCH (09:07)
[2023-06-10] MEDS: FERROUS SO4 325 MG TABLET (FP) PO SCH (09:07)
[2023-06-10] MEDS: ASCORBIC ACID 250 MG TABLET (FP) PO SCH (09:07)
[2023-06-10] MEDS: amLODIPine BESYLATE 10 MG TABLET (FP) PO SCH (09:08)
[2023-06-10] MEDS: PRENATAL VITAMINS W/ FOLIC ACID TABLET (FP) PO SCH (09:08)
[2023-06-10 09:56] VITALS: BP 123/68; PULSE 84
== END 2023-06-10 09:10 | disposition home or self-care (01) | DRG 895 ==
LOC: YASAS 12:20 → Y3E 15:39
PROVIDERS: ADMIT Allergy & Immunology; ATTEND Psychiatry & Neurology Pain Medicine
PROC: HZ42ZZZ Group Counseling for Substance Abuse Treatment, Cognitive-Behavioral (ICD-10-PCS; principal; 2023-05-31)
DX: F11.20 Opioid dependence, uncomplicated (principal); F14.20 Cocaine dependence, uncomplicated; Z59.00 Homelessness unspecified; F10.20 Alcohol dependence, uncomplicated; Z21 Asymptomatic human immunodeficiency virus [HIV] infection status; I10 Essential (primary) hypertension; E11.9 Type 2 diabetes mellitus without complications; Z79.84 Long term (current) use of oral hypoglycemic drugs; I69.828 Other speech and language deficits following other cerebrovascular disease; Z86.11 Personal history of tuberculosis; Z87.891 Personal history of nicotine dependence; Z56.0 Unemployment, unspecified; Z28.310 Unvaccinated for COVID-19; Z28.9 Immunization not carried out for unspecified reason
CPT/HCPCS: 36415; 71046-TC-FY; 80053; 80307; 82607; 82746; 82962; 83540; 85027; 86780; 86803; 87522; 87635

== ENCOUNTER 2023-10-29 11:50 | Inpatient (IN) | payer OTHER ==
[2023-10-29 12:11] VITALS: BMI 26.7
[2023-10-29] MEDS ORDERED: POLYETHYLENE GLYCOL (HEALTHYLAX) 3350 17 GM PACKET PO PRN (13:49)
[2023-10-29] MEDS ORDERED: guaiFENesin 600 MG TABLET.ER (FP) PO PRN (13:49)
[2023-10-29] MEDS ORDERED: IBUPROFEN 600 MG TABLET (FP) PO PRN (13:49)
[2023-10-29] MEDS ORDERED: NALOXONE HCL 0.4 MG/ML VIAL IM PRN (13:49)
[2023-10-29] MEDS ORDERED: IBUPROFEN 400 MG TABLET (FP) PO PRN (13:49)
[2023-10-29] MEDS ORDERED: BENZONATATE 200 MG CAPSULE PO PRN (13:49)
[2023-10-29] MEDS ORDERED: NALOXONE HCL (KLOXXADO) 8 MG SPRAY NS PRN (13:49)
[2023-10-29] MEDS ORDERED: hydrOXYzine PAMOATE 25 MG CAPSULE (FP) PO PRN (13:49)
[2023-10-29] MEDS ORDERED: PRENATAL VITAMINS W/ FOLIC ACID TABLET (FP) PO ONE (14:49)
[2023-10-29] MEDS: PRENATAL VITAMINS W/ FOLIC ACID TABLET (FP) PO SCH (14:59)
[2023-10-29] MEDS: metFORMIN HCL 500 MG TABLET (FP) PO SCH (16:23)
[2023-10-29] MEDS: INSULIN ASPART SLIDING SCALE (NOVOLOG) 1 VIAL SQ SCH (16:24)
[2023-10-29] MEDS ORDERED: TUBERCULIN PPD 5 TU/0.1ML SYRINGE (IN PATIENT USE ONLY) ID ONE (17:51)
[2023-10-29] MEDS: THIAMINE 100 MG TABLET PO SCH (21:02)
[2023-10-29] MEDS: MELATONIN 5 MG TABLETS PO SCH (21:02)
[2023-10-30] MEDS: amLODIPine BESYLATE 10 MG TABLET (FP) PO SCH (09:54)
[2023-10-30] MEDS: ASPIRIN 81 MG CHEWABLE TABLETS PO SCH (09:54)
[2023-10-30] MEDS: FLU VACCINE (FLULAVAL) PF 60 MCG/0.5 ML SYRINGE 2023-2024 IM ONE (11:04)
[2023-10-30 12:14] LABS: POTASSIUM 4.2 mmol/L (3.5-5.1)
[2023-10-30 12:27] LABS: HEMATOCRIT 36.8 % (35.4-49); HEMOGLOBIN 12.4 GM/dL (11.7-16.9); MCH 31.2 pg (25.7-33.7); MCHC 33.7 g/dl (32.0-35.9); MEAN CELL VOLUME 92.6 fl (80-96); MEAN PLT VOLUME 8.2 fl (7.5-11.1); PLATELET COUNT 299 10^3/uL (134-434); RBC 3.98 M/mm3 (4.00-5.60); RDW 15.1 % (11.9-15.9)
[2023-10-30 12:28] LABS: CALCIUM 8.7 mg/dL (8.5-10.1)
[2023-10-30 12:30] LABS: BLOOD UREA NITROGEN 19.1 mg/dL (7-18)
[2023-10-30 12:32] LABS: CREATININE 0.9 mg/dL (0.55-1.3)
[2023-10-30 12:33] LABS: BILIRUBIN,TOTAL 0.6 mg/dL (0.2-1)
[2023-10-30 13:18] LABS: SYPHILIS W/ RPR CONF NON-REACTIVE (NONREACTIVE)
[2023-11-01] MEDS: HYDROCHLOROTHIAZIDE 12.5 MG CAPSULE (FP) PO SCH (11:36)
[2023-11-03 12:07] LABS: PH,URINE 6.5 (5.0-8.0); URINE APPEARANCE CLEAR; URINE BILIRUBIN 1+ (NEGATIVE); URINE COLOR DK YELLOW; URINE GLUCOSE (UA) TRACE (NEGATIVE); URINE KETONE TRACE (NEGATIVE); URINE LEUK ESTERASE NEGATIVE (NEGATIVE); URINE NITRITE NEGATIVE (NEGATIVE); URINE PROTEIN TRACE (NEGATIVE)
[2023-11-12] MEDS: BENZOCAINE/MENTHOL (CHLORASEPTIC ) LOZENGE MM PRN (21:16)
[2023-11-13] MEDS: LOPERAMIDE HCL 2 MG CAPSULE PO PRN (10:54)
[2023-11-14] MEDS: MAG HYDROX/AL HYDROX/SIMETH 30 ML UNIT-DOSE CUP PO PRN (10:45)
[2023-11-18] MEDS ORDERED: INSULIN ASPART SLIDING SCALE (NOVOLOG) 1 VIAL SQ ONE (05:52)
[2023-11-20] MEDS: MAGNESIUM HYDROX 2400MG/30ML ORAL SUSPENSION 30 ML CUP PO PRN (06:23)
[2023-11-20] MEDS: ACETAMINOPHEN 325 MG TABLET (FP) PO PRN (20:27)
[2023-11-21] MEDS: PANTOPRAZOLE 20 MG TABLET PO SCH (10:19)
[2023-11-25 06:54] VITALS: TEMP 98
[2023-11-26 09:08] VITALS: BP 112/64; PULSE 92; RESP 18
== END 2023-11-26 09:55 | disposition home or self-care (01) | DRG 895 ==
LOC: YASAS 11:50 → Y3W 14:19
PROVIDERS: ADMIT Allergy & Immunology; ATTEND Psychiatry & Neurology Pain Medicine
PROC: HZ42ZZZ Group Counseling for Substance Abuse Treatment, Cognitive-Behavioral (ICD-10-PCS; principal; 2023-10-29)
DX: F10.20 Alcohol dependence, uncomplicated (principal); F14.20 Cocaine dependence, uncomplicated; Z59.02 Unsheltered homelessness; Z21 Asymptomatic human immunodeficiency virus [HIV] infection status; B19.20 Unspecified viral hepatitis C without hepatic coma; I25.10 Atherosclerotic heart disease of native coronary artery without angina pectoris; I10 Essential (primary) hypertension; K21.9 Gastro-esophageal reflux disease without esophagitis; E11.9 Type 2 diabetes mellitus without complications; Z79.84 Long term (current) use of oral hypoglycemic drugs; I69.820 Aphasia following other cerebrovascular disease; Z87.891 Personal history of nicotine dependence; Z86.11 Personal history of tuberculosis; Z56.0 Unemployment, unspecified
CPT/HCPCS: 36415; 80053; 80305; 80307; 81003; 82962; 85027; 86780; 86803; 87522; 87811; 90686

== ENCOUNTER 2024-03-25 16:40 | Inpatient (IN) | payer OTHER ==
[2024-03-25 17:58] VITALS: BMI 28.2
[2024-03-25] MEDS ORDERED: IBUPROFEN 400 MG TABLET (FP) PO PRN (22:24)
[2024-03-25] MEDS ORDERED: NALOXONE (NARCAN) HCL 4 MG/0.1 ML SPRAY NS PRN (22:24)
[2024-03-25] MEDS ORDERED: IBUPROFEN 600 MG TABLET (FP) PO PRN (22:24)
[2024-03-25] MEDS ORDERED: BENZONATATE 200 MG CAPSULE PO PRN (22:24)
[2024-03-25] MEDS ORDERED: POLYETHYLENE GLYCOL (HEALTHYLAX) 3350 17 GM PACKET PO PRN (22:24)
[2024-03-25] MEDS ORDERED: ACETAMINOPHEN 325 MG TABLET (FP) PO PRN (22:24)
[2024-03-25] MEDS ORDERED: NALOXONE HCL 0.4 MG/ML VIAL IM PRN (22:24)
[2024-03-25] MEDS ORDERED: BENZOCAINE/MENTHOL (CHLORASEPTIC ) LOZENGE MM PRN (22:24)
[2024-03-25] MEDS ORDERED: MAG HYDROX/AL HYDROX/SIMETH 30 ML UNIT-DOSE CUP PO PRN (22:24)
[2024-03-25] MEDS ORDERED: NICOTINE POLACRILEX 2 MG GUM BUC PRN (22:24)
[2024-03-25] MEDS ORDERED: guaiFENesin 600 MG TABLET.ER (FP) PO PRN (22:24)
[2024-03-25] MEDS ORDERED: LOPERAMIDE HCL 2 MG CAPSULE PO PRN (22:24)
[2024-03-25] MEDS ORDERED: MAGNESIUM HYDROX 2400MG/30ML ORAL SUSPENSION 30 ML CUP PO PRN (22:24)
[2024-03-25] MEDS: MELATONIN 5 MG TABLETS PO SCH (23:58)
[2024-03-26 09:21] LABS: HEMATOCRIT 37.4 % (35.4-49); HEMOGLOBIN 11.6 GM/dL (11.7-16.9); MCH 26.1 pg (25.7-33.7); MEAN CELL VOLUME 84.4 fl (80-96); MEAN PLT VOLUME 8.4 fl (7.5-11.1); PLATELET COUNT 297 10^3/uL (134-434); RBC 4.43 M/mm3 (4.00-5.60); RDW 24.1 % (11.9-15.9); WHITE BLOOD COUNT 6.3 K/mm3 (4.0-10.0)
[2024-03-26 09:28] LABS: CHLORIDE 108 mmol/L (98-107); POTASSIUM 4.2 mmol/L (3.5-5.1); SODIUM 141 mmol/L (136-145)
[2024-03-26 09:33] LABS: ALBUMIN 3.5 g/dl (3.4-5.0); ANION GAP 6 mmol/L (4-13); BLOOD UREA NITROGEN 27.8 mg/dL (7-18); CALCIUM 9.2 mg/dL (8.5-10.1); CO2 27 mmol/L (21-32); GLUCOSE,RANDOM 135 mg/dL (74-106)
[2024-03-26 09:36] LABS: SGOT/AST 44 U/L (15-37); SGPT/ALT 41 U/L (13-61)
[2024-03-26 09:37] LABS: BILIRUBIN,TOTAL 0.6 mg/dL (0.2-1); CREATININE 0.9 mg/dL (0.55-1.3); TOT PROT 7.7 g/dl (6.4-8.2)
[2024-03-26 09:39] LABS: ALK PHOS 57 U/L (45-117)
[2024-03-26] MEDS: NICOTINE 14 MG/24 HOURS TOPICAL PATCH TD SCH (10:02)
[2024-03-26] MEDS: PRENATAL VITAMINS W/ FOLIC ACID TABLET (FP) PO SCH (10:02)
[2024-03-26] MEDS: THIAMINE 100 MG TABLET PO SCH (21:51)
[2024-03-28] MEDS: metFORMIN HCL 500 MG TABLET (FP) PO SCH (06:08)
[2024-03-28] MEDS: INSULIN ASPART SLIDING SCALE (NOVOLOG) 1 VIAL SQ SCH (06:09)
[2024-03-28] MEDS: HYDROCHLOROTHIAZIDE 12.5 MG CAPSULE (FP) PO SCH (10:12)
[2024-03-28] MEDS: ASPIRIN 81 MG CHEWABLE TABLETS PO SCH (10:12)
[2024-03-28] MEDS: PANTOPRAZOLE 20 MG TABLET PO SCH (10:12)
[2024-03-28] MEDS: FERROUS SO4 325 MG TABLET (FP) PO SCH (10:12)
[2024-03-28] MEDS: amLODIPine BESYLATE 10 MG TABLET (FP) PO SCH (10:12)
[2024-03-28 11:57] LABS: PH,URINE 7.5 (5.0-8.0); URINE APPEARANCE CLEAR; URINE BILIRUBIN NEGATIVE (NEGATIVE); URINE COLOR YELLOW; URINE GLUCOSE (UA) NEGATIVE (NEGATIVE); URINE KETONE NEGATIVE (NEGATIVE); URINE LEUK ESTERASE NEGATIVE (NEGATIVE); URINE NITRITE NEGATIVE (NEGATIVE); URINE PROTEIN NEGATIVE (NEGATIVE); URINE UROBILINOGEN 0.2 mg/dL (0.2-1.0)
[2024-03-30] MEDS ORDERED: INSULIN (NOVOLOG) ASPART 100 UNITS/ML 10ML VIAL ONE (16:39)
[2024-03-31] MEDS ORDERED: INSULIN (NOVOLOG) ASPART 100 UNITS/ML 10ML VIAL ONE (06:15)
[2024-04-03] MEDS ORDERED: INSULIN (NOVOLOG) ASPART 100 UNITS/ML 10ML VIAL ONE (16:48)
[2024-04-04] MEDS ORDERED: INSULIN (NOVOLOG) ASPART 100 UNITS/ML 10ML VIAL ONE (16:53)
[2024-04-07 07:24] VITALS: RESP 18
[2024-04-07] MEDS ORDERED: INSULIN (NOVOLOG) ASPART 100 UNITS/ML 10ML VIAL ONE (16:32)
[2024-04-13] MEDS ORDERED: INSULIN (NOVOLOG) ASPART 100 UNITS/ML 10ML VIAL ONE (16:15)
[2024-04-14] MEDS ORDERED: INSULIN (NOVOLOG) ASPART 100 UNITS/ML 10ML VIAL ONE (16:35)
[2024-04-16] MEDS ORDERED: INSULIN (NOVOLOG) ASPART 100 UNITS/ML 10ML VIAL ONE ×2 (06:26→16:30)
[2024-04-18] MEDS ORDERED: INSULIN (NOVOLOG) ASPART 100 UNITS/ML 10ML VIAL ONE (16:07)
[2024-04-20 07:08] VITALS: TEMP 97.3
[2024-04-20 12:14] VITALS: BP 140/85; PULSE 90
== END 2024-04-20 12:55 | disposition home or self-care (01) | DRG 895 ==
LOC: YASAS 16:40 → Y3NR 21:16 → Y5N 03-27 13:53
PROVIDERS: ADMIT Allergy & Immunology; ATTEND Psychiatry & Neurology Pain Medicine
PROC: HZ42ZZZ Group Counseling for Substance Abuse Treatment, Cognitive-Behavioral (ICD-10-PCS; principal; 2024-03-25)
DX: F10.20 Alcohol dependence, uncomplicated (principal); F14.20 Cocaine dependence, uncomplicated; Z59.02 Unsheltered homelessness; F17.210 Nicotine dependence, cigarettes, uncomplicated; Z21 Asymptomatic human immunodeficiency virus [HIV] infection status; I25.10 Atherosclerotic heart disease of native coronary artery without angina pectoris; I10 Essential (primary) hypertension; E78.5 Hyperlipidemia, unspecified; E11.9 Type 2 diabetes mellitus without complications; Z79.84 Long term (current) use of oral hypoglycemic drugs; R76.11 Nonspecific reaction to tuberculin skin test without active tuberculosis; I69.820 Aphasia following other cerebrovascular disease; Z79.899 Other long term (current) drug therapy
CPT/HCPCS: 36415; 71046-TC-FY; 80053; 80305; 80307; 81003; 82962; 85027; 86780; 87811; 93005; 93010